=== PATIENT | female | born 1980 | race Caucasian/White ===

== ENCOUNTER 2019-02-15 11:30 | Emergency (ER) | payer BC, MEDICARE ==
[2019-02-15] MEDS ORDERED: HYDROmorphone 0.5 MG/0.5 ML SYRINGE IVP STA (12:00)
[2019-02-15] MEDS ORDERED: ONDANSETRON 4 MG/2 ML VIAL IVP STA (12:00)
[2019-02-15] MEDS ORDERED: SODIUM CHLORIDE 0.9% 1,000 ML IV STA (12:00)
--- NOTE | 2019-02-15 12:13 | ED ---
Abdominal Pain HPI - General Chief Complaint: Abdominal Pain Stated Complaint: left side/back pain, intestinal problems Time Seen by Provider: 02/15/19 11:44 Source: patient, RN notes reviewed Mode of arrival: ambulatory Limitations: no limitations - History of Present Illness Initial Comments: 38-year-old female presents emergency Department with multiple complaints. Patient primarily complains abdominal pain, diarrhea, nausea. Patient states that she's had years of issues but the symptoms are getting worse. Patient states she has abdominal pain primarily in the left upper abdominal region. Patient states that she occasionally has blood in her stool. Patient states that she's been told she had diverticulitis in the past though she states that she had lab work that tested positive for possible autoimmune disease including also colitis versus Crohn's. Patient states that she's never had a colonoscopy. Patient had increased urine production states that she is concerned that she may have hyperglycemia. Patient states she said history of gestational diabetes states that she checked her blood sugar while ago and states it was elevated fasting. Patient states that she is not at this time. She states approximately 6 months ago she had a stillbirth states that she had up with a uterine infection was placed on antibiotics along with surgery. Patient states that she currently is on her menstrual cycle. Denies any chance . - Related Data Home Medications Medication Instructions Recorded Confirmed Ferrous Sulfate [Feosol] 325 mg PO DAILY 02/15/19 02/15/19 clonazePAM [KlonoPIN] 1 - 2 mg PO BID PRN 02/15/19 02/15/19 Previous Rx's Medication Instructions Recorded Mesalamine 2.4 gm PO DAILY #30 tablet. 02/15/19 Allergies Allergy/AdvReac Type Severity Reaction Status Date / Time ciprofloxacin [From Cipro] Allergy Unknown Verified 02/15/19 12:15 Review of Systems ROS Statement: Those systems with pertinent positive or pertinent negative responses have been documented in the HPI. ROS Other: All systems not noted in ROS Statement are negative. Past Medical History Additional Past Medical History / Comment(s): ULCERATIVE COLITIS. GESTATIONAL DIABETES. History of Any Multi-Drug Resistant Organisms: None Reported Past Surgical History: Section, Cholecystectomy, Orthopedic Surgery, Tonsillectomy Past Psychological History: Anxiety Smoking Status: Never smoker Past Alcohol Use History: None Reported Past Drug Use History: None Reported General Exam Limitations: no limitations General appearance: alert, in no apparent distress Head exam: Present: atraumatic, normocephalic, normal inspection Eye exam: Present: normal appearance, PERRL, EOMI. Absent: scleral icterus, conjunctival injection, periorbital swelling Respiratory exam: Present: normal lung sounds bilaterally. Absent: respiratory distress, wheezes, rales, rhonchi, stridor Cardiovascular Exam: Present: regular rate, normal rhythm, normal heart sounds. Absent: systolic murmur, diastolic murmur, rubs, gallop, clicks GI/Abdominal exam: Present: soft, tenderness, normal bowel sounds. Absent: distended, guarding, rebound, rigid Back exam: Absent: CVA tenderness (R), CVA tenderness (L) Skin exam: Present: warm, dry, intact, normal color. Absent: rash Course Vital Signs 02/15/19 11:37 Temperature 98.2 F Pulse Rate 66 Respiratory 16 Rate Blood Pressure 132/84 O2 Sat by Pulse 100 Oximetry Medical Decision Making - Medical Decision Making 38-year-old female presents emergency from for abdominal pain concern for colitis. Patient had CT, lab work and labwork is unremarkable. CT shows evidence of enteritis versus been ongoing issue and felt to be possibly underlying Crohn's. Patient was offered course of IV steroids though she states that this will cause her fibromyalgia flare. Patient states that she does not feel comfortable this. Patient will be started on mesalamine, advised to take [id number] Imodium and follow-up with GI for colonoscopy. Patient also states that she was instructed to check her blood sugar 4 times a day because of ongoing diabetic issues that she has no official diagnosis of diabetes other than gestational diabetes. She is requesting, or and strips. Patient has appointment next 2 weeks with her PCP and will follow-up with GI in the meantime. - Lab Data Result diagrams: 02/15/19 12:00 02/15/19 12:00 Lab Results 02/15/19 02/15/19 02/15/19 Range/Units 12:00 12:00 12:00 WBC 5.4 (3.8-10.6) k/uL RBC 4.46 (3.80-5.40) m/uL Hgb 12.1 (11.4-16.0) gm/dL Hct 37.6 (34.0-46.0) % MCV 84.4 (80.0-100.0) fL MCH 27.1 (25.0-35.0) pg MCHC 32.1 (31.0-37.0) g/dL RDW 18.8 H (11.5-15.5) % Plt Count 311 (150-450) k/uL Neutrophils % 61 % Lymphocytes % 29 % Monocytes % 5 % Eosinophils % 2 % Basophils % 1 % Neutrophils # 3.3 (1.3-7.7) k/uL Lymphocytes # 1.6 (1.0-4.8) k/uL Monocytes # 0.3 (0-1.0) k/uL Eosinophils # 0.1 (0-0.7) k/uL Basophils # 0.1 (0-0.2) k/uL Anisocytosis Slight Microcytosis Slight Sodium 141 (137-145) mmol/L Potassium 5.0 (3.5-5.1) mmol/L Chloride 109 H (98-107) mmol/L Carbon Dioxide 24 (22-30) mmol/L Anion Gap 8 mmol/L BUN 13 (7-17) mg/dL Creatinine 0.67 (0.52-1.04) mg/dL Est GFR (CKD-EPI)AfAm >90 (>60 ml/min/1.73 sqM) Est GFR (CKD-EPI)NonAf >90 (>60 ml/min/1.73 sqM) Glucose 85 (74-99) mg/dL Plasma Lactic Acid Ti (0.7-2.0) mmol/L Calcium 9.7 (8.4-10.2) mg/dL Total Bilirubin 0.6 (0.2-1.3) mg/dL AST 35 (14-36) U/L ALT 54 H (9-52) U/L Alkaline Phosphatase 63 (38-126) U/L Total Protein 7.4 (6.3-8.2) g/dL Albumin 4.4 (3.5-5.0) g/dL Amylase 66 (30-110) U/L Lipase 85 (23-300) U/L Urine Color Urine Appearance (Clear) Urine pH (5.0-8.0) Ur Specific [place] (1.001-1.035) Urine Protein (Negative) Urine Glucose (UA) (Negative) Urine Ketones (Negative) Urine Blood (Negative) Urine Nitrite (Negative) Urine Bilirubin (Negative) Urine Urobilinogen (<2.0) mg/dL Ur Leukocyte Esterase (Negative) Urine RBC (0-5) /hpf Urine WBC (0-5) /hpf Ur Squamous Epith Cells (0-4) /hpf Urine Bacteria (None) /hpf Urine Mucus (None) /hpf Urine HCG, Qual Not Detected (Not Detectd) 02/15/19 02/15/19 Range/Units 12:00 12:00 WBC (3.8-10.6) k/uL RBC (3.80-5.40) m/uL Hgb (11.4-16.0) gm/dL Hct (34.0-46.0) % MCV (80.0-100.0) fL MCH (25.0-35.0) pg MCHC (31.0-37.0) g/dL RDW (11.5-15.5) % Plt Count (150-450) k/uL Neutrophils % % Lymphocytes % % Monocytes % % Eosinophils % % Basophils % % Neutrophils # (1.3-7.7) k/uL Lymphocytes # (1.0-4.8) k/uL Monocytes # (0-1.0) k/uL Eosinophils # (0-0.7) k/uL Basophils # (0-0.2) k/uL Anisocytosis Microcytosis Sodium (137-145) mmol/L Potassium (3.5-5.1) mmol/L Chloride (98-107) mmol/L Carbon Dioxide (22-30) mmol/L Anion Gap mmol/L BUN (7-17) mg/dL Creatinine (0.52-1.04) mg/dL Est GFR (CKD-EPI)AfAm (>60 ml/min/1.73 sqM) Est GFR (CKD-EPI)NonAf (>60 ml/min/1.73 sqM) Glucose (74-99) mg/dL Plasma Lactic Acid Ti 0.7 (0.7-2.0) mmol/L Calcium (8.4-10.2) mg/dL Total Bilirubin (0.2-1.3) mg/dL AST (14-36) U/L ALT (9-52) U/L Alkaline Phosphatase (38-126) U/L Total Protein (6.3-8.2) g/dL Albumin (3.5-5.0) g/dL Amylase (30-110) U/L Lipase (23-300) U/L Urine Color Yellow Urine Appearance Clear (Clear) Urine pH 5.5 (5.0-8.0) Ur Specific [place] 1.026 (1.001-1.035) Urine Protein Negative (Negative) Urine Glucose (UA) Negative (Negative) Urine Ketones Negative (Negative) Urine Blood Small H (Negative) Urine Nitrite Negative (Negative) Urine Bilirubin Negative (Negative) Urine Urobilinogen <2.0 (<2.0) mg/dL Ur Leukocyte Esterase Negative (Negative) Urine RBC 13 H (0-5) /hpf Urine WBC 1 (0-5) /hpf Ur Squamous Epith Cells 3 (0-4) /hpf Urine Bacteria Rare H (None) /hpf Urine Mucus Occasional H (None) /hpf Urine HCG, Qual (Not Detectd) Disposition Clinical Impression: Abdominal pain, Enteritis Disposition: HOME SELF-CARE Condition: Stable Instructions (If sedation given, give patient instructions): Abdominal Pain (ED) Additional Instructions: Please return to the Emergency Department if symptoms worsen or any other concerns. Prescriptions: Mesalamine 2.4 gm PO DAILY #30 tablet.dr Is patient prescribed a controlled substance at d/c from ED?: No Referrals: Vincent Pena MD [STAFF PHYSICIAN] - 1-2 days Time of Disposition: 13:34
[2019-02-15 12:39] LABS: Anisocytosis Slight; Appearance,Urine Clear (Clear); Bacteria,Urine Rare /hpf; Basophils # (A) 0.1 k/uL (0-0.2); Basophils % (A) 1 %; Bilirubin,Urine Negative (Negative); Blood,Urine Small (Negative); Color,Urine Yellow; Eosinophils # (A) 0.1 k/uL (0-0.7); Eosinophils % (A) 2 %; Glucose,Urine (UA) Negative (Negative); HCT 37.6 % (34.0-46.0); HGB 12.1 gm/dL (11.4-16.0); Ketones,Urine Negative (Negative); Leukocyte Esterase,Urine Negative (Negative); Lymphocytes # (A) 1.6 k/uL (1.0-4.8); Lymphocytes % (A) 29 %; MCH 27.1 pg (25.0-35.0); MCHC 32.1 g/dL (31.0-37.0); MCV 84.4 fL (80.0-100.0); Mean Platelet Volume 8.2; Microcytosis Slight; Monocytes # (A) 0.3 k/uL (0-1.0); Monocytes % (A) 5 %; Mucus,Urine Occasional /hpf; Neutrophils # (A) 3.3 k/uL (1.3-7.7); Neutrophils % (A) 61 %; Nitrite,Urine Negative (Negative); PH, Urine 5.5 (5.0-8.0); Platelet Count 311 k/uL (150-450); Protein,Urine Negative (Negative); RBC 4.46 m/uL (3.80-5.40); RBC,Urine 13 /hpf (0-5); RDW 18.8 % (11.5-15.5); Specific Gravity,Urine 1.026 (1.001-1.035); Squamous Epithelial Cell,Urine 3 /hpf (0-4); Urobilinogen,Urine <2.0 mg/dL (<2.0); WBC 5.4 k/uL (3.8-10.6)
[2019-02-15 12:49] LABS: ALT 54 U/L (9-52); AST 35 U/L (14-36); Albumin 4.4 g/dL (3.5-5.0); Alkaline Phosphatase 63 U/L (38-126); Amylase 66 U/L (30-110); Anion Gap 8 mmol/L; Blood Urea Nitrogen 13 mg/dL (7-17); Calcium 9.7 mg/dL (8.4-10.2); Carbon Dioxide 24 mmol/L (22-30); Chloride 109 mmol/L (98-107); Glucose 85 mg/dL (74-99); Lipase 85 U/L (23-300); Sodium 141 mmol/L (137-145); Total Bilirubin 0.6 mg/dL (0.2-1.3); Total Protein 7.4 g/dL (6.3-8.2)
--- NOTE | 2019-02-15 13:14 | CT ---
EXAMINATION TYPE: CT abdomen pelvis w con DATE OF EXAM: 02/15/2019 COMPARISON: None HISTORY: Flank pain with indigestion CT DLP: 1019 mGycm CONTRAST: CT scan of the abdomen and pelvis is performed without Oral Contrast and with IV Contrast, patient in jected with 100 mL of Isovue 300. FINDINGS: LUNG BASES-: No visible nodule. No infiltrate. LIVER/GB: The gallbladder surgically absent. There is evidence of hepatic steatosis. No space occu pying hepatic lesion. Biliary tree is of normal caliber. PANCREAS: No inflammation. No distinct mass. SPLEEN: No splenic enlargement. No lesion seen. ADRENALS: No nodule. No thickening. KIDNEYS/BLADDER: No hydronephrosis. No nephrolithiasis. No distinct renal mass. Urinary bladder g rossly unremarkable. BOWEL: Mild wall thickening small bowel with the fluid distention seen may reflect enteritis. Large b owel is of normal caliber. The appendix is not clearly visualized. No evidence for abscess or free ai r. GENITAL ORGANS: No gross abnormality. LYMPH NODES: No greater than 1cm abdominal or pelvic lymph nodes are appreciated. AORTA: No significant abnormality. OSSEOUS STRUCTURES: No significant abnormality is seen. OTHER: No significant additional abnormality is seen. IMPRESSION: 1. Correlate for small bowel enteritis. 2. Fatty liver.
[2019-02-15] MEDS ORDERED: ACET/COD 300 MG/30 MG STARTER PACK 6 TAB BTL PO STA (13:35)
[2019-02-15 13:55] VITALS: BP 115/79; PULSE 61; RESP 18; TEMP 98.4
== END 2019-02-15 13:54 | disposition home or self-care (01) ==
LOC: EC 11:30
DX: K52.9 Noninfective gastroenteritis and colitis, unspecified (principal); Z87.19 Personal history of other diseases of the digestive system; Z90.49 Acquired absence of other specified parts of digestive tract; Z98.890 Other specified postprocedural states; Z79.899 Other long term (current) drug therapy; Z88.1 Allergy status to other antibiotic agents
CPT/HCPCS: 36415; 80053; 82150; 83605; 83690; 85025; 81001; 81025; 74177; 99284; 96374; 96375; 96361; J2405; J1170; Q9967

== ENCOUNTER 2019-04-14 04:52 | Emergency (ER) | payer BC, MEDICARE ==
[2019-04-14] MEDS ORDERED: SODIUM CHLORIDE 0.9% 1,000 ML IV ONE (04:59)
--- NOTE | 2019-04-14 05:30 | ED ---
Abdominal Pain HPI - General Source: patient, family Mode of arrival: ambulatory Limitations: no limitations - History of Present Illness MD Complaint: abdominal pain Onset/Timin -: hour(s) Location: LLQ Radiation: none Migration to: no migration Severity: moderate Quality: sharp Consistency: constant Improves With: nothing Worsens With: nothing Associated Symptoms: denies other symptoms - Related Data LMP (females 10-50): 1 month Patient : Yes Number of weeks : 5 <Alo Figueredo - Last Filed: 04/14/19 05:30> <Vincent Zuñiag - Last Filed: 04/14/19 07:52> - General Chief Complaint: Abdominal Pain Stated Complaint: 6 Weeks Preg, Abd Pain Time Seen by Provider: 04/14/19 05:16 - History of Present Illness Initial Comments: Patient is a 38-year-old woman (G7, P4Ab2) who presents stating that she is concerned she has ectopic . She had a home test +2 weeks ago The patient states she developed sharp left lower quadrant pain proximally 2 hours ago. She is concerned because she has had 2 previous pregnancies and in miscarriage. Patient is not having any vaginal discharge or vaginal bleeding. No palpitations, lightheadedness, diaphoresis, dyspnea, or syncope. There is no nausea or vomiting. No change in bowel movements. No change in urination. (Alo Figueredo) - Related Data Home Medications Medication Instructions Recorded Confirmed [id number] Acid 1 cap PO DAILY 04/14/19 04/14/19 [-U Capsule (formulary)] Allergies Allergy/AdvReac Type Severity Reaction Status Date / Time ciprofloxacin [From Cipro] Allergy Unknown Verified 04/14/19 07:34 Review of Systems ROS Other: All systems not noted in ROS Statement are negative. Constitutional: Denies: fever, chills Respiratory: Denies: cough, dyspnea Cardiovascular: Denies: chest pain, palpitations, edema, syncope Gastrointestinal: Reports: as per HPI, abdominal pain. Denies: nausea, vomiting, diarrhea, constipation Genitourinary: Denies: dysuria, frequency, hematuria, discharge Musculoskeletal: Denies: back pain Skin: Denies: rash Neurological: Denies: headache, weakness, numbness <Alo Figueredo - Last Filed: 04/14/19 05:30> ROS Other: All systems not noted in ROS Statement are negative. <Vincent Zuñiga - Last Filed: 04/14/19 07:52> ROS Statement: Those systems with pertinent positive or pertinent negative responses have been documented in the HPI. Past Medical History Additional Past Medical History / Comment(s): ULCERATIVE COLITIS. GESTATIONAL DIABETES. History of Any Multi-Drug Resistant Organisms: None Reported Past Surgical History: Section, Cholecystectomy, Orthopedic Surgery, Tonsillectomy Past Psychological History: Anxiety Smoking Status: Never smoker Past Alcohol Use History: None Reported Past Drug Use History: None Reported <Alo Figueredo - Last Filed: 04/14/19 05:30> General Exam Limitations: no limitations General appearance: alert, in no apparent distress Head exam: Present: atraumatic, normocephalic Eye exam: Present: normal appearance. Absent: scleral icterus, conjunctival injection Respiratory exam: Present: normal lung sounds bilaterally. Absent: respiratory distress, wheezes, rales, rhonchi, stridor Cardiovascular Exam: Present: regular rate, normal rhythm, normal heart sounds. Absent: systolic murmur, diastolic murmur, rubs, gallop GI/Abdominal exam: Present: soft. Absent: distended, tenderness, guarding, rebound, rigid, mass Extremities exam: Present: normal inspection, normal capillary refill. Absent: pedal edema, calf tenderness Back exam: Present: normal inspection. Absent: CVA tenderness (R), CVA tenderness (L) Neurological exam: Present: alert Psychiatric exam: Present: depressed (Tearful), anxious. Absent: homicidal ideation, suicidal ideation Skin exam: Present: warm, dry, intact, normal color. Absent: rash <Alo Figueredo - Last Filed: 04/14/19 05:30> Course Vital Signs 04/14/19 04/14/19 04:55 07:07 Temperature 98.6 F 98.1 F Pulse Rate 83 78 Respiratory 18 16 Rate Blood Pressure 130/91 115/62 O2 Sat by Pulse 98 99 Oximetry Medical Decision Making - Lab Data Result diagrams: 04/14/19 05:52 04/14/19 05:52 <Vincent Zuñiga - Last Filed: 04/14/19 07:52> - Medical Decision Making Ultrasound showed a possible early yolk sac no indication of any ectopic. It is recommended the patient with serial hCGs. (Vincent Zuñiga) - Lab Data Lab Results 04/14/19 04/14/19 04/14/19 Range/Units 05:20 05:52 05:52 WBC 6.1 (3.8-10.6) k/uL RBC 4.46 (3.80-5.40) m/uL Hgb 12.6 (11.4-16.0) gm/dL Hct 38.7 (34.0-46.0) % MCV 86.7 (80.0-100.0) fL MCH 28.3 (25.0-35.0) pg MCHC 32.7 (31.0-37.0) g/dL RDW 17.7 H (11.5-15.5) % Plt Count 238 (150-450) k/uL Neutrophils % 62 % Lymphocytes % 28 % Monocytes % 5 % Eosinophils % 2 % Basophils % 0 % Neutrophils # 3.7 (1.3-7.7) k/uL Lymphocytes # 1.7 (1.0-4.8) k/uL Monocytes # 0.3 (0-1.0) k/uL Eosinophils # 0.1 (0-0.7) k/uL Basophils # 0.0 (0-0.2) k/uL Anisocytosis Slight Sodium 140 (137-145) mmol/L Potassium 4.4 (3.5-5.1) mmol/L Chloride 110 H (98-107) mmol/L Carbon Dioxide 19 L (22-30) mmol/L Anion Gap 11 mmol/L BUN 11 (7-17) mg/dL Creatinine 0.56 (0.52-1.04) mg/dL Est GFR (CKD-EPI)AfAm >90 (>60 ml/min/1.73 sqM) Est GFR (CKD-EPI)NonAf >90 (>60 ml/min/1.73 sqM) Glucose 95 (74-99) mg/dL Calcium 9.2 (8.4-10.2) mg/dL Total Bilirubin 0.5 (0.2-1.3) mg/dL AST 30 (14-36) U/L ALT 25 (9-52) U/L Alkaline Phosphatase 56 (38-126) U/L Total Protein 7.1 (6.3-8.2) g/dL Albumin 4.1 (3.5-5.0) g/dL Amylase 78 (30-110) U/L Lipase 158 (23-300) U/L HCG, Quant 4704.2 mIU/mL Urine Color Yellow Urine Appearance Cloudy H (Clear) Urine pH 6.0 (5.0-8.0) Ur Specific [place] 1.025 (1.001-1.035) Urine Protein Trace H (Negative) Urine Glucose (UA) Negative (Negative) Urine Ketones 1+ H (Negative) Urine Blood Small H (Negative) Urine Nitrite Negative (Negative) Urine Bilirubin Negative (Negative) Urine Urobilinogen 3.0 (<2.0) mg/dL Ur Leukocyte Esterase Large H (Negative) Urine RBC 22 H (0-5) /hpf Urine WBC 48 H (0-5) /hpf Ur Squamous Epith Cells 28 H (0-4) /hpf Urine Mucus Few H (None) /hpf Disposition <Alo Figueredo - Last Filed: 04/14/19 05:30> Is patient prescribed a controlled substance at d/c from ED?: No Time of Disposition: 07:51 <Vincent Zuñiga - Last Filed: 04/14/19 07:52> Clinical Impression: Early stage of Disposition: HOME SELF-CARE Instructions (If sedation given, give patient instructions): Ectopic (DC) Additional Instructions: Patient should follow-up with her [facility] and also get serial hCGs she will be given a prescription for another hCG. Referrals: Prashanth Douglas MD [STAFF PHYSICIAN] - 1-2 days
[2019-04-14 05:41] LABS: Appearance,Urine Cloudy (Clear); Bilirubin,Urine Negative (Negative); Blood,Urine Small (Negative); Color,Urine Yellow; Glucose,Urine (UA) Negative (Negative); Ketones,Urine 1+ (Negative); Leukocyte Esterase,Urine Large (Negative); Mucus,Urine Few /hpf; Nitrite,Urine Negative (Negative); Protein,Urine Trace (Negative); RBC,Urine 22 /hpf (0-5); Specific Gravity,Urine 1.025 (1.001-1.035); Squamous Epithelial Cell,Urine 28 /hpf (0-4); WBC,Urine 48 /hpf (0-5)
[2019-04-14 06:02] LABS: Anisocytosis Slight; Basophils % (A) 0 %; Eosinophils # (A) 0.1 k/uL (0-0.7); Eosinophils % (A) 2 %; HCT 38.7 % (34.0-46.0); HGB 12.6 gm/dL (11.4-16.0); Lymphocytes # (A) 1.7 k/uL (1.0-4.8); Lymphocytes % (A) 28 %; MCH 28.3 pg (25.0-35.0); MCHC 32.7 g/dL (31.0-37.0); MCV 86.7 fL (80.0-100.0); Mean Platelet Volume 8.9; Monocytes # (A) 0.3 k/uL (0-1.0); Monocytes % (A) 5 %; Neutrophils # (A) 3.7 k/uL (1.3-7.7); Neutrophils % (A) 62 %; Platelet Count 238 k/uL (150-450); RBC 4.46 m/uL (3.80-5.40); RDW 17.7 % (11.5-15.5); WBC 6.1 k/uL (3.8-10.6)
[2019-04-14 06:14] LABS: ALT 25 U/L (9-52); AST 30 U/L (14-36); African American GFR (CKD) >90 (>60 ml/min/1.73 sqM); Albumin 4.1 g/dL (3.5-5.0); Alkaline Phosphatase 56 U/L (38-126); Amylase 78 U/L (30-110); Anion Gap 11 mmol/L; Blood Urea Nitrogen 11 mg/dL (7-17); Calcium 9.2 mg/dL (8.4-10.2); Carbon Dioxide 19 mmol/L (22-30); Chloride 110 mmol/L (98-107); Glucose 95 mg/dL (74-99); Lipase 158 U/L (23-300); Sodium 140 mmol/L (137-145); Total Bilirubin 0.5 mg/dL (0.2-1.3); Total Protein 7.1 g/dL (6.3-8.2)
[2019-04-14 06:18] LABS: Potassium 4.4 mmol/L (3.5-5.1)
[2019-04-14 06:29] LABS: HCG,Quantitative Serum 4704.2 mIU/mL
[2019-04-14 07:09] VITALS: RESP 16
--- NOTE | 2019-04-14 07:21 | US ---
EXAMINATION TYPE: Ultrasound OB <= 14 week fetus DATE OF EXAM: 04/14/2019 7:08 AM COMPARISON: NONE CLINICAL HISTORY: 38-year-old female Pain, R/O ectopic. Pt states LLQ pain x few hours, denies bleedi ng EXAM PERFORMED: Transabdominal (TA) FINDINGS: EXAM MEASUREMENTS: GESTATIONAL AGE / DATING Physician Established: Not yet established Dates by LMP: (5 weeks/4 days) EDC: 12/11/2019 Dates by First Scan: No prior Dates by Current Scan for: Unable to date by today's study; too early MATERNAL ANATOMY Uterus: 11.0 x 5.4 x 7.4 cm Right Ovary: 2.8 x 2.5 x 2.9 cm Left Ovary: 2.4 x 1.8 x 2.6 cm Post CDS / Adnexa: wnl Presence of free fluid: No Presence of corpus luteal cyst: Right Ovary= 2.0 x 1.6 x 1.8 cm Presence of subchorionic bleed: No GESTATION / SURVEY MSD: Cystic locule measuring 0.9 cm along the right uterine fundus. Too early/small to calculate date s Yolk Sac (normal less than 6mm): Suspected early yolk sac measuring 2mm Date of LMP: 03/06/2019 Beta HcG (if available): 4704.5 on today's date 04/14/2019 Gate Mortiser Operator notes:Probable early gestational sac with yolk sac within uterus, too early/small to ca lculate dates IMPRESSION: Cystic locule along the right uterine fundus measuring 9 mm. There is a faint, 2 mm density within gotti spected to represent an early yolk sac. Early intrauterine is suspected. Failed a nd nonvisualized ectopic not excluded at this time given the small measurements. Recommend serial beta hCG follow-up. Ultrasound follow-up to ensure the appearance of a normal pole with cardiac activity.
[2019-04-14 08:07] VITALS: BP 110/70; PULSE 81; TEMP 98.2
== END 2019-04-14 08:05 | disposition home or self-care (01) ==
LOC: EC 04:52
DX: O99.89 Other specified diseases and conditions complicating pregnancy, childbirth and the puerperium (principal); R10.32 Left lower quadrant pain; O99.341 Other mental disorders complicating pregnancy, first trimester; F32.9 Major depressive disorder, single episode, unspecified; R45.83 Excessive crying of child, adolescent or adult; Z88.1 Allergy status to other antibiotic agents; Z86.32 Personal history of gestational diabetes; Z87.59 Personal history of other complications of pregnancy, childbirth and the puerperium; Z87.19 Personal history of other diseases of the digestive system; Z90.49 Acquired absence of other specified parts of digestive tract; Z98.890 Other specified postprocedural states; Z3A.01 Less than 8 weeks gestation of pregnancy
CPT/HCPCS: 36415; 76801; 80053; 81001; 82150; 83690; 84702; 85025; 96360; 99284

== ENCOUNTER 2019-08-01 00:43 | Emergency (ER) | payer BC, MEDICARE ==
[2019-08-01 01:39] LABS: ALT 31 U/L (9-52); AST 24 U/L (14-36); African American GFR (CKD) >90 (>60 ml/min/1.73 sqM); Albumin 4.2 g/dL (3.5-5.0); Alkaline Phosphatase 65 U/L (38-126); Amylase 99 U/L (30-110); Anion Gap 8 mmol/L; Blood Urea Nitrogen 14 mg/dL (7-17); Carbon Dioxide 25 mmol/L (22-30); Chloride 109 mmol/L (98-107); Glucose 115 mg/dL (74-99); Potassium 4.5 mmol/L (3.5-5.1); Sodium 142 mmol/L (137-145); Total Bilirubin 0.4 mg/dL (0.2-1.3); Total Protein 7.3 g/dL (6.3-8.2)
[2019-08-01 02:45] LABS: Basophils # (A) 0.1 k/uL (0-0.2); Basophils % (A) 2 %; Eosinophils # (A) 0.1 k/uL (0-0.7); Eosinophils % (A) 2 %; HCT 42.3 % (34.0-46.0); HGB 14.3 gm/dL (11.4-16.0); Lymphocytes # (A) 1.8 k/uL (1.0-4.8); Lymphocytes % (A) 23 %; MCH 32.1 pg (25.0-35.0); MCHC 33.8 g/dL (31.0-37.0); MCV 95.1 fL (80.0-100.0); Mean Platelet Volume 8.8; Monocytes # (A) 0.4 k/uL (0-1.0); Monocytes % (A) 5 %; Neutrophils # (A) 5.2 k/uL (1.3-7.7); Neutrophils % (A) 68 %; Platelet Count 192 k/uL (150-450); RBC 4.44 m/uL (3.80-5.40); RDW 12.7 % (11.5-15.5); WBC 7.8 k/uL (3.8-10.6)
--- NOTE | 2019-08-01 02:49 | XR ---
EXAMINATION TYPE: XR KUB DATE OF EXAM: 08/01/2019 COMPARISON: NONE HISTORY: Pain TECHNIQUE: Single view FINDINGS: 2 views upright were obtained. There is no sign of intestinal obstruction or pneumoperitone um. Fecal pattern is normal. Lung bases are clear. There are clips from cholecystectomy. There are no pathologic calcifications over the kidneys. IMPRESSION: Nonacute abdomen.
[2019-08-01 04:47] LABS: Appearance,Urine Clear (Clear); Bacteria,Urine Rare /hpf; Bilirubin,Urine Negative (Negative); Blood,Urine Small (Negative); Calcium Oxalate Crystals,Urine Few /hpf; Color,Urine Yellow; Glucose,Urine (UA) Negative (Negative); Hyaline Casts,Urine 1 /lpf (0-2); Ketones,Urine Negative (Negative); Leukocyte Esterase,Urine Trace (Negative); Mucus,Urine Moderate /hpf; Nitrite,Urine Negative (Negative); PH, Urine 5.5 (5.0-8.0); Protein,Urine Negative (Negative); RBC,Urine 26 /hpf (0-5); Specific Gravity,Urine 1.022 (1.001-1.035); Squamous Epithelial Cell,Urine 1 /hpf (0-4); WBC,Urine 5 /hpf (0-5)
[2019-08-01] MEDS ORDERED: KETOROLAC 30 MG/ML 1 ML VIAL IVP ONE (05:08)
[2019-08-01] MEDS ORDERED: KETOROLAC 30 MG/ML 1 ML VIAL IM STA (05:22)
[2019-08-01] MEDS ORDERED: ACET/COD 300 MG/30 MG STARTER PACK 6 TAB BTL PO STA (06:18)
[2019-08-01] MEDS ORDERED: ONDANSETRON 4 MG ODT STARTER PACK 2 TAB BTL PO STA (06:18)
--- NOTE | 2019-08-01 06:18 | ED ---
Abdominal Pain HPI - General Chief Complaint: Abdominal Pain Stated Complaint: Abd/ Back Pain Time Seen by Provider: 08/01/19 03:30 Source: patient Mode of arrival: ambulatory Limitations: no limitations - History of Present Illness Initial Comments: Polly is a 39-year-old female presents the ER today for evaluation of left- sided flank pain radiating down left side of her abdomen. Patient's had pain for a few days duration. Patient reports she has a history of colitis in the past but also has a history of kidney stones. Patient does note that she's noted that her urine is somewhat darker and she did notice some red streaking of her urine when wiping but no dysuria or urinary frequency. Patient denies any constipation or diarrhea. She follows with gastroenterology Dr. Christensen out of [facility]. Patient states that she had some remaining narcotic pain medication from previous fibromyalgia flare and was able take that which helped the pain somewhat Labs and imaging ordered labs relatively unremarkable home and no leukocytosis no significant electrolyte abnormalities Urinalysis with hematuria and oxalate crystals The patient's history I suspect the patient suffering from a kidney stone. Given that she has no GI symptoms no leukocytosis I do not suspect she is suffering from colitis. These results were discussed with patient is comfortable with the plan for discharge home and outpatient management of kidney stone. All questions pertaining care were answered return parameters discussed patient discharged home in stable condition. - Related Data Home Medications Medication Instructions Recorded Confirmed Hwi-Eaqu-Ebpfd Acid 1 cap PO DAILY 04/14/19 04/14/19 [-U Capsule (formulary)] Previous Rx's Medication Instructions Recorded Tamsulosin [Flomax] 0.4 mg PO DAILY #7 cap 08/01/19 Allergies Allergy/AdvReac Type Severity Reaction Status Date / Time ciprofloxacin [From Cipro] Allergy Unknown Verified 08/01/19 00:49 Review of Systems ROS Statement: Those systems with pertinent positive or pertinent negative responses have been documented in the HPI. ROS Other: All systems not noted in ROS Statement are negative. Past Medical History Additional Past Medical History / Comment(s): ULCERATIVE COLITIS. GESTATIONAL DIABETES. History of Any Multi-Drug Resistant Organisms: None Reported Past Surgical History: Section, Cholecystectomy, Orthopedic Surgery, Tonsillectomy Past Psychological History: Anxiety Smoking Status: Never smoker Past Alcohol Use History: None Reported Past Drug Use History: None Reported General Exam - General Exam Comments Initial Comments: Physical Exam GENERAL: Patient is well-developed and well-nourished. Patient is nontoxic and well- hydrated and is in no distress. HENT: Normocephalic, Atraumatic. EYES: PERRL, EOMI PULMONARY: Unlabored respirations. No audible rales rhonchi or wheezing was noted. CARDIOVASCULAR: There is a regular rate and rhythm without any murmurs gallops or rubs. ABDOMEN: Soft and nontender with normal bowel sounds. Non-peritoneal No tenderness to palpation SKIN: Skin is clear with no lesions or rashes and otherwise unremarkable. : Deferred NEUROLOGIC: Patient is alert and oriented x3. Moving all extremities spontaneously MUSCULOSKELETAL: Normal extremities with adequate strength and full range of motion. No lower extremity swelling or edema. No calf tenderness. PSYCHIATRIC: Normal psychiatric evaluation. Limitations: no limitations Course Vital Signs 08/01/19 08/01/19 08/01/19 00:47 04:23 06:32 Temperature 98.2 F 98.1 F Pulse Rate 96 65 60 Respiratory 20 19 18 Rate Blood Pressure 147/91 105/67 98/55 O2 Sat by Pulse 95 98 97 Oximetry Medical Decision Making - Lab Data Result diagrams: 08/01/19 01:18 08/01/19 01:18 Lab Results 08/01/19 08/01/19 08/01/19 Range/Units 01:18 01:18 04:21 WBC 7.8 (3.8-10.6) k/uL RBC 4.44 (3.80-5.40) m/uL Hgb 14.3 (11.4-16.0) gm/dL Hct 42.3 (34.0-46.0) % MCV 95.1 (80.0-100.0) fL MCH 32.1 (25.0-35.0) pg MCHC 33.8 (31.0-37.0) g/dL RDW 12.7 (11.5-15.5) % Plt Count 192 (150-450) k/uL Neutrophils % 68 % Lymphocytes % 23 % Monocytes % 5 % Eosinophils % 2 % Basophils % 2 % Neutrophils # 5.2 (1.3-7.7) k/uL Lymphocytes # 1.8 (1.0-4.8) k/uL Monocytes # 0.4 (0-1.0) k/uL Eosinophils # 0.1 (0-0.7) k/uL Basophils # 0.1 (0-0.2) k/uL Sodium 142 (137-145) mmol/L Potassium 4.5 (3.5-5.1) mmol/L Chloride 109 H (98-107) mmol/L Carbon Dioxide 25 (22-30) mmol/L Anion Gap 8 mmol/L BUN 14 (7-17) mg/dL Creatinine 0.79 (0.52-1.04) mg/dL Est GFR (CKD-EPI)AfAm >90 (>60 ml/min/1.73 sqM) Est GFR (CKD-EPI)NonAf >90 (>60 ml/min/1.73 sqM) Glucose 115 H (74-99) mg/dL Calcium 10.0 (8.4-10.2) mg/dL Total Bilirubin 0.4 (0.2-1.3) mg/dL AST 24 (14-36) U/L ALT 31 (9-52) U/L Alkaline Phosphatase 65 (38-126) U/L Total Protein 7.3 (6.3-8.2) g/dL Albumin 4.2 (3.5-5.0) g/dL Amylase 99 (30-110) U/L Lipase 170 (23-300) U/L Urine Color Yellow Urine Appearance Clear (Clear) Urine pH 5.5 (5.0-8.0) Ur Specific [place] 1.022 (1.001-1.035) Urine Protein Negative (Negative) Urine Glucose (UA) Negative (Negative) Urine Ketones Negative (Negative) Urine Blood Small H (Negative) Urine Nitrite Negative (Negative) Urine Bilirubin Negative (Negative) Urine Urobilinogen 2.0 (<2.0) mg/dL Ur Leukocyte Esterase Trace H (Negative) Urine RBC 26 H (0-5) /hpf Urine WBC 5 (0-5) /hpf Ur Squamous Epith Cells 1 (0-4) /hpf Calcium Oxalate Crystal Few H (None) /hpf Urine Bacteria Rare H (None) /hpf Hyaline Casts 1 (0-2) /lpf Urine Mucus Moderate H (None) /hpf Urine HCG, Qual (Not Detectd) 08/01/19 Range/Units 04:21 WBC (3.8-10.6) k/uL RBC (3.80-5.40) m/uL Hgb (11.4-16.0) gm/dL Hct (34.0-46.0) % MCV (80.0-100.0) fL MCH (25.0-35.0) pg MCHC (31.0-37.0) g/dL RDW (11.5-15.5) % Plt Count (150-450) k/uL Neutrophils % % Lymphocytes % % Monocytes % % Eosinophils % % Basophils % % Neutrophils # (1.3-7.7) k/uL Lymphocytes # (1.0-4.8) k/uL Monocytes # (0-1.0) k/uL Eosinophils # (0-0.7) k/uL Basophils # (0-0.2) k/uL Sodium (137-145) mmol/L Potassium (3.5-5.1) mmol/L Chloride (98-107) mmol/L Carbon Dioxide (22-30) mmol/L Anion Gap mmol/L BUN (7-17) mg/dL Creatinine (0.52-1.04) mg/dL Est GFR (CKD-EPI)AfAm (>60 ml/min/1.73 sqM) Est GFR (CKD-EPI)NonAf (>60 ml/min/1.73 sqM) Glucose (74-99) mg/dL Calcium (8.4-10.2) mg/dL Total Bilirubin (0.2-1.3) mg/dL AST (14-36) U/L ALT (9-52) U/L Alkaline Phosphatase (38-126) U/L Total Protein (6.3-8.2) g/dL Albumin (3.5-5.0) g/dL Amylase (30-110) U/L Lipase (23-300) U/L Urine Color Urine Appearance (Clear) Urine pH (5.0-8.0) Ur Specific [place] (1.001-1.035) Urine Protein (Negative) Urine Glucose (UA) (Negative) Urine Ketones (Negative) Urine Blood (Negative) Urine Nitrite (Negative) Urine Bilirubin (Negative) Urine Urobilinogen (<2.0) mg/dL Ur Leukocyte Esterase (Negative) Urine RBC (0-5) /hpf Urine WBC (0-5) /hpf Ur Squamous Epith Cells (0-4) /hpf Calcium Oxalate Crystal (None) /hpf Urine Bacteria (None) /hpf Hyaline Casts (0-2) /lpf Urine Mucus (None) /hpf Urine HCG, Qual Not Detected (Not Detectd) Disposition Clinical Impression: Flank pain Disposition: HOME SELF-CARE Condition: Stable Instructions (If sedation given, give patient instructions): Kidney Stones (ED) Additional Instructions: Follow up with your primary doctor within 2-3 days. Follow up with a Urologist this week (we will give you a list of urologists, but make sure they accept your insurance). ?Please call as soon as possible for an appointment. 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 Use Motrin (also called Ibuprofen or Advil) 400-800 mg every 6 hours as needed for pain. Take this with food, if you have any stomach discomfort while taking Motrin, you can use TUMS to help. Drink plenty of fluids, avoid caffeine & alcohol. Please continue taking your home medications as directed. Do not use alcohol when taking any medication (especially antibiotics, tylenol or other pain medication) unless you check with the doctor or pharmacist. Any worsening pain, fever, chills, difficulty urinating, or any other concerns, please see your doctor immediately or return to Emergency Department right away. Prescriptions: Tamsulosin [Flomax] 0.4 mg PO DAILY #7 cap Is patient prescribed a controlled substance at d/c from ED?: No Referrals: None,Stated [Primary Care Provider] - 1-2 days
[2019-08-01 06:33] VITALS: BP 98/55; PULSE 60; RESP 18; TEMP 98.1
== END 2019-08-01 06:32 | disposition home or self-care (01) ==
LOC: EC 00:43
DX: R10.9 Unspecified abdominal pain (principal); M79.7 Fibromyalgia; R31.9 Hematuria, unspecified; Z88.1 Allergy status to other antibiotic agents; Z87.442 Personal history of urinary calculi
CPT/HCPCS: 36415; 80053; 82150; 83690; 85025; 81001; 81025; 74018; 96372; 99284; J1885; S0119

== ENCOUNTER 2020-05-02 16:02 | Emergency (ER) | payer BC, MEDICARE ==
[2020-05-02] MEDS ORDERED: SODIUM CHLORIDE 0.9% 1,000 ML IV ONE (16:41)
[2020-05-02 17:05] LABS: Basophils % (A) 0 %; Eosinophils # (A) 0.1 k/uL (0-0.7); Eosinophils % (A) 2 %; HGB 13.8 gm/dL (11.4-16.0); Lymphocytes # (A) 1.7 k/uL (1.0-4.8); Lymphocytes % (A) 25 %; MCH 31.8 pg (25.0-35.0); MCHC 34.4 g/dL (31.0-37.0); MCV 92.5 fL (80.0-100.0); Mean Platelet Volume 9.7; Monocytes # (A) 0.4 k/uL (0-1.0); Monocytes % (A) 7 %; Neutrophils # (A) 4.2 k/uL (1.3-7.7); Neutrophils % (A) 64 %; Platelet Count 233 k/uL (150-450); RBC 4.33 m/uL (3.80-5.40); RDW 15.1 % (11.5-15.5); WBC 6.6 k/uL (3.8-10.6)
[2020-05-02 17:15] LABS: Appearance,Urine Clear (Clear); Bacteria,Urine Occasional /hpf; Bilirubin,Urine Negative (Negative); Blood,Urine Negative (Negative); Color,Urine Yellow; Glucose,Urine (UA) Negative (Negative); Hyaline Casts,Urine 1 /lpf (0-2); Ketones,Urine 1+ (Negative); Leukocyte Esterase,Urine Trace (Negative); Mucus,Urine Occasional /hpf; Nitrite,Urine Negative (Negative); Protein,Urine Negative (Negative); RBC,Urine 2 /hpf (0-5); Specific Gravity,Urine 1.023 (1.001-1.035); Squamous Epithelial Cell,Urine 1 /hpf (0-4); WBC,Urine 2 /hpf (0-5)
[2020-05-02 17:17] LABS: ALT 22 U/L (4-34); AST 30 U/L (14-36); African American GFR (CKD) >90 (>60 ml/min/1.73 sqM); Albumin 4.2 g/dL (3.5-5.0); Alkaline Phosphatase 60 U/L (38-126); Anion Gap 11 mmol/L; Blood Urea Nitrogen 9 mg/dL (7-17); Calcium 10.1 mg/dL (8.4-10.2); Carbon Dioxide 20 mmol/L (22-30); Chloride 107 mmol/L (98-107); Glucose 120 mg/dL (74-99); Non-African American GFR(CKD) >90 (>60 ml/min/1.73 sqM); Potassium 4.1 mmol/L (3.5-5.1); Sodium 138 mmol/L (137-145); Total Bilirubin 0.5 mg/dL (0.2-1.3); Total Protein 7.3 g/dL (6.3-8.2)
--- NOTE | 2020-05-02 17:40 | US ---
EXAMINATION TYPE: Transabdominal DATE OF EXAM: 05/02/2020 5:22 PM COMPARISON: NONE CLINICAL HISTORY: pain. Cramping and spotting EXAM PERFORMED: Transabdominal (TA) departmental protocol EXAM MEASUREMENTS: GESTATIONAL AGE / DATING Physician Established: Not yet established Dates by LMP: (8 weeks/6 days) EDC: 12/06/2020 Dates by First Scan: No previous; this is first scan . Dates by Current Scan for: (8 weeks/6 days) EDC: 12/06/2020 MATERNAL ANATOMY Uterus: 10.3 x 7.9 x 7.9 cm Right Ovary: Obscured by bowel gas Left Ovary: Obscured by bowel gas Post CDS / Adnexa: wnl Presence of free fluid: no Presence of corpus luteal cyst: no Presence of subchorionic bleed: no GESTATION / SURVEY CRL: 2.21 cm (8 weeks/6 days) Yolk Sac (normal less than 6 mm): 4 mm Heart Rate: 165 bpm Rhythm: Normal IUP: Viable IUP Beta HcG (if available): Not available at this time IMPRESSION: Intrauterine corresponding with 8 weeks 6 days gestation with estimated date of confinement 12/06/2020.
[2020-05-02 18:09] LABS: HCG,Quantitative Serum 70648.5 mIU/mL
--- NOTE | 2020-05-02 19:19 | ED ---
General Adult HPI - General Chief complaint: Vaginal Bleeding Stated complaint: Cramping/Spotting-8 wks Time Seen by Provider: 05/02/20 16:14 Source: patient, RN notes reviewed Mode of arrival: ambulatory Limitations: no limitations - History of Present Illness Initial comments: 39-year-old female with 3 miscarriages currently 9 weeks presents for cramping and spotting. Patient states she has had very light spotting for the past couple days. States that she is currently and is concerned as she is a high risk . Patient's did have an ultrasound confirming an intrauterine or this . Patient does have [employer].Patient has no other complaints at this time including shortness of breath, chest pain, nausea or vomiting, headache, or visual changes. - Related Data Home Medications Medication Instructions Recorded Confirmed Ezl-Qmke-Zntwm Acid 1 cap PO DAILY 04/14/19 04/14/19 [-U Capsule (formulary)] Previous Rx's Medication Instructions Recorded Tamsulosin [Flomax] 0.4 mg PO DAILY #7 cap 08/01/19 Allergies Allergy/AdvReac Type Severity Reaction Status Date / Time ciprofloxacin [From Cipro] Allergy Unknown Verified 05/02/20 16:13 Review of Systems ROS Statement: Those systems with pertinent positive or pertinent negative responses have been documented in the HPI. ROS Other: All systems not noted in ROS Statement are negative. Past Medical History Past Medical History: Fibromyalgia Additional Past Medical History / Comment(s): chronic fatigue syndrome, kidney stones, diverticulosis, gastroparesis, gestational diabetes, being worked up for clotting disorder History of Any Multi-Drug Resistant Organisms: None Reported Past Surgical History: Section, Cholecystectomy, Orthopedic Surgery, Tonsillectomy Additional Past Surgical History / Comment(s): kidney stone removal Past Psychological History: Anxiety Smoking Status: Never smoker Past Alcohol Use History: None Reported Past Drug Use History: None Reported General Exam Limitations: no limitations General appearance: alert, in no apparent distress Head exam: Present: atraumatic, normocephalic, normal inspection Eye exam: Present: normal appearance, PERRL, EOMI. Absent: scleral icterus, conjunctival injection, periorbital swelling ENT exam: Present: normal exam, mucous membranes moist Neck exam: Present: normal inspection, full ROM. Absent: tenderness, meningismus, lymphadenopathy Respiratory exam: Present: normal lung sounds bilaterally. Absent: respiratory distress, wheezes, rales, rhonchi, stridor Cardiovascular Exam: Present: regular rate, normal rhythm, normal heart sounds. Absent: systolic murmur, diastolic murmur, rubs, gallop, clicks GI/Abdominal exam: Present: soft, normal bowel sounds. Absent: distended, tend erness, guarding, rebound, rigid External exam: Absent: other (Refused) Course Vital Signs 05/02/20 05/02/20 16:09 18:05 Temperature 98.2 F 98.5 F Pulse Rate 77 60 Respiratory 18 18 Rate Blood Pressure 128/85 115/81 O2 Sat by Pulse 98 98 Oximetry Medical Decision Making - Medical Decision Making Vitals are stable. Physical exam is unremarkable. Patient refused pelvic exam. CBC CMP is unremarkable. Urinalysis shows occasional bacteria however no symptoms. Urine will be cultured. Blood type is O+. Ultrasound shows an intrauterine corresponding with 8 weeks 6 days gestation. Heart rate is 165. At this time patient diagnosed with threatened miscarriage. Patient will follow-up with her [employer]. She will return here for any worsening symptoms. - Lab Data Result diagrams: 05/02/20 16:43 05/02/20 16:43 Lab Results 05/02/20 05/02/20 05/02/20 Range/Units 16:35 16:43 16:43 WBC 6.6 (3.8-10.6) k/uL RBC 4.33 (3.80-5.40) m/uL Hgb 13.8 (11.4-16.0) gm/dL Hct 40.0 (34.0-46.0) % MCV 92.5 (80.0-100.0) fL MCH 31.8 (25.0-35.0) pg MCHC 34.4 (31.0-37.0) g/dL RDW 15.1 (11.5-15.5) % Plt Count 233 (150-450) k/uL Neutrophils % 64 % Lymphocytes % 25 % Monocytes % 7 % Eosinophils % 2 % Basophils % 0 % Neutrophils # 4.2 (1.3-7.7) k/uL Lymphocytes # 1.7 (1.0-4.8) k/uL Monocytes # 0.4 (0-1.0) k/uL Eosinophils # 0.1 (0-0.7) k/uL Basophils # 0.0 (0-0.2) k/uL Sodium (137-145) mmol/L Potassium (3.5-5.1) mmol/L Chloride (98-107) mmol/L Carbon Dioxide (22-30) mmol/L Anion Gap mmol/L BUN (7-17) mg/dL Creatinine (0.52-1.04) mg/dL Est GFR (CKD-EPI)AfAm (>60 ml/min/1.73 sqM) Est GFR (CKD-EPI)NonAf (>60 ml/min/1.73 sqM) Glucose (74-99) mg/dL Calcium (8.4-10.2) mg/dL Total Bilirubin (0.2-1.3) mg/dL AST (14-36) U/L ALT (4-34) U/L Alkaline Phosphatase (38-126) U/L Total Protein (6.3-8.2) g/dL Albumin (3.5-5.0) g/dL HCG, Quant mIU/mL Urine Color Yellow Urine Appearance Clear (Clear) Urine pH 6.0 (5.0-8.0) Ur Specific [place] 1.023 (1.001-1.035) Urine Protein Negative (Negative) Urine Glucose (UA) Negative (Negative) Urine Ketones 1+ H (Negative) Urine Blood Negative (Negative) Urine Nitrite Negative (Negative) Urine Bilirubin Negative (Negative) Urine Urobilinogen 2.0 (<2.0) mg/dL Ur Leukocyte Esterase Trace H (Negative) Urine RBC 2 (0-5) /hpf Urine WBC 2 (0-5) /hpf Ur Squamous Epith Cells 1 (0-4) /hpf Urine Bacteria Occasional H (None) /hpf Hyaline Casts 1 (0-2) /lpf Urine Mucus Occasional H (None) /hpf Blood Type O Positive Blood Type Recheck No Previous Record Bld Type Recheck Status [facility] ONLY 05/02/20 Range/Units 16:43 WBC (3.8-10.6) k/uL RBC (3.80-5.40) m/uL Hgb (11.4-16.0) gm/dL Hct (34.0-46.0) % MCV (80.0-100.0) fL MCH (25.0-35.0) pg MCHC (31.0-37.0) g/dL RDW (11.5-15.5) % Plt Count (150-450) k/uL Neutrophils % % Lymphocytes % % Monocytes % % Eosinophils % % Basophils % % Neutrophils # (1.3-7.7) k/uL Lymphocytes # (1.0-4.8) k/uL Monocytes # (0-1.0) k/uL Eosinophils # (0-0.7) k/uL Basophils # (0-0.2) k/uL Sodium 138 (137-145) mmol/L Potassium 4.1 (3.5-5.1) mmol/L Chloride 107 (98-107) mmol/L Carbon Dioxide 20 L (22-30) mmol/L Anion Gap 11 mmol/L BUN 9 (7-17) mg/dL Creatinine 0.48 L (0.52-1.04) mg/dL Est GFR (CKD-EPI)AfAm >90 (>60 ml/min/1.73 sqM) Est GFR (CKD-EPI)NonAf >90 (>60 ml/min/1.73 sqM) Glucose 120 H (74-99) mg/dL Calcium 10.1 (8.4-10.2) mg/dL Total Bilirubin 0.5 (0.2-1.3) mg/dL AST 30 (14-36) U/L ALT 22 (4-34) U/L Alkaline Phosphatase 60 (38-126) U/L Total Protein 7.3 (6.3-8.2) g/dL Albumin 4.2 (3.5-5.0) g/dL HCG, Quant 18332.5 mIU/mL Urine Color Urine Appearance (Clear) Urine pH (5.0-8.0) Ur Specific [place] (1.001-1.035) Urine Protein (Negative) Urine Glucose (UA) (Negative) Urine Ketones (Negative) Urine Blood (Negative) Urine Nitrite (Negative) Urine Bilirubin (Negative) Urine Urobilinogen (<2.0) mg/dL Ur Leukocyte Esterase (Negative) Urine RBC (0-5) /hpf Urine WBC (0-5) /hpf Ur Squamous Epith Cells (0-4) /hpf Urine Bacteria (None) /hpf Hyaline Casts (0-2) /lpf Urine Mucus (None) /hpf Blood Type Blood Type Recheck Bld Type Recheck Status Disposition Clinical Impression: Vaginal bleeding during Disposition: HOME SELF-CARE Condition: Good Instructions (If sedation given, give patient instructions): Threatened Miscarriage (ED) Additional Instructions: Please follow-up with your [employer] by calling for an appointment tomorrow. If you have worsening symptoms return here to the emergency room. Is patient prescribed a controlled substance at d/c from ED?: No Referrals: Prashanth Douglas MD [STAFF PHYSICIAN] - 1-2 days Time of Disposition: 19:17
[2020-05-02 19:35] VITALS: BP 121/78; PULSE 93; RESP 17; TEMP 98.9
== END 2020-05-02 19:36 | disposition home or self-care (01) ==
LOC: EC 16:02
DX: O20.9 Hemorrhage in early pregnancy, unspecified (principal); Z3A.08 8 weeks gestation of pregnancy; Z88.1 Allergy status to other antibiotic agents
CPT/HCPCS: 36415; 76801; 80053; 81001; 84702; 85025; 86900; 86901; 96360; 96361; 99284

== ENCOUNTER 2020-10-16 23:29 | Outpatient (CLI) | payer BC, MEDICARE ==
[2020-10-17] MEDS ORDERED: LACTATED RINGERS 1,000 ML IV SCH ×2 (00:30)
[2020-10-17 00:33] LABS: Appearance,Urine Clear (Clear); Bilirubin,Urine Negative (Negative); Blood,Urine Negative (Negative); Color,Urine Light Yellow; Glucose,Urine (UA) Negative (Negative); Ketones,Urine Negative (Negative); Leukocyte Esterase,Urine Negative (Negative); Nitrite,Urine Negative (Negative); PH, Urine 6.5 (5.0-8.0); Protein,Urine Negative (Negative); Specific Gravity,Urine 1.008 (1.001-1.035); Urobilinogen,Urine <2.0 mg/dL (<2.0)
[2020-10-17 01:12] VITALS: BP 117/76; PULSE 81; RESP 16; TEMP 97.8
--- NOTE | 2020-11-23 10:21 | P.MSEPDOC ---
Presenting Problems - Arrival Data Date of Arrival on Unit: 10/16/20 Time of Arrival on Unit: 23:29 Mode of Transport: Ambulatory - Complaint OB-Reason for Admission/Chief Complaint: Possible Onset of Labor Comment: pt states she has been siomara the past 12 hours Medical History - Information : 8 Para: 4 Term: 4 : 0 Abortions: Spontaneous or Elective: 3 Number of Living Children: 4 - Gestational Age Gestational Age by NAYANA (wks/days): 32 Weeks and 6 Days - History Complications: GDM, Prior Review of Systems - Review of Systems Constitutional: No problems Breast: No problems ENT: No problems Cardiovascular: No problems Respiratory: No problems Gastrointestinal: No problems Genitourinary: No problems Musculoskeletal: No problems Neurological: No problems Skin: No problems Vital Signs - Temperature Temperature: 97.8 F Temperature Source: Oral - Pulse Right Sitting Brachial Pulse Rate: 81 Pulse Assessment Method: Automatic Cuff - Respirations Respiratory Rate: 16 Oxygen Delivery Method: Room Air O2 Sat by Pulse Oximetry: 97 - Blood Pressure Right Arm Supine Blood Pressure: 117/76 Blood Pressure Mean: 89 Blood Pressure Source: Automatic Cuff Medical Screen Scoring (Pre) - Cervical Exam Dilation: 0 cm = 0 Membranes: Intact - Uterine Contractions Frequency: > 5 minutes apart = 1 Duration: N/A Intensity: N/A - Maternal Vital Signs Maternal Temperature: N/A Signs of Preeclampsia: N/A Maternal Respirations: N/A - Maternal Trauma Maternal Trauma: N/A - Assessment - Baby A Baseline FHR: 120 Heart Rate - NICHD Category: Category I (Normal) = 0 NST: Reactive - Total Score - Baby A Total Score - Baby A: 1 - Total Score - Baby B Total Score - Baby B: 1 - Total Score - Baby C Total Score - Baby C: 1 - Level of Risk - Baby A Level of Risk - Baby A: Low (0-5) - Level of Risk - Baby B Level of Risk - Baby B: Low (0-5) - Level of Risk - Baby C Level of Risk - Baby C: Low (0-5) Physician Notification (Pre) - Physician Notified Physician Notified Date: 10/17/20 Physician Notified Time: 00:16 New Order Received: Yes - Notification Comment Comment: IV hydration (2 liters), FFN, send UA Medical Screen Scoring (Post) - Uterine Contractions Frequency: > 5 minutes apart = 1 - Assessment - Baby A Heart Rate: 125 Heart Rate - NICHD Category: Category I (Normal) = 0 - Total Score Total Score - Baby A: 1 Total Score - Baby B: 1 Total Score - Baby C: 1 - Post Treatment Level of Risk Post Treatment Level of Risk - Baby A: Low (0-5) Post Treatment Level of Risk - Baby B: Low (0-5) Post Treatment Level of Risk - Baby C: Low (0-5) Physician Notification (Post) - Physician Notified Physician Notified Date: 10/17/20 Physician Notified Time: 02:07 Physician/Practitioner Notified:: Stella New Order Received: Yes (discharge home) Disposition - Disposition OB Disposition: Discharge to home, Written follow up instructions reviewed Discharge Date: 10/17/20 Discharge Time: 02:20 I agree with the RN Medical Screening Exam: Yes Physician's MSE Comment: I have neither seen nor examined the patient. Case reviewed; plan agreed upon as documented in EMR&OBIX.: Yes Diagnosis: RELATED CONDITIONS, UNSPECIFIED, THIRD TRIMESTER
== END 2020-10-17 02:20 | disposition home or self-care (01) ==
LOC: FBPOP 23:29
PROVIDERS: ATTEND Obstetrics & Gynecology
DX: O26.93 Pregnancy related conditions, unspecified, third trimester (principal); Z3A.32 32 weeks gestation of pregnancy
CPT/HCPCS: 59025; 81003; 82731; 96360; 96361; 99214

== ENCOUNTER 2020-11-12 01:17 | Outpatient (CLI) | payer BC, MEDICARE ==
[2020-11-12 01:45] LABS: Appearance,Urine Clear (Clear); Bacteria,Urine Occasional /hpf; Bilirubin,Urine Negative (Negative); Blood,Urine Moderate (Negative); Color,Urine Light Yellow; Glucose,Urine (UA) Negative (Negative); Ketones,Urine Negative (Negative); Leukocyte Esterase,Urine Trace (Negative); Mucus,Urine Rare /hpf; Nitrite,Urine Negative (Negative); PH, Urine 6.5 (5.0-8.0); Protein,Urine Negative (Negative); RBC,Urine 10 /hpf (0-5); Specific Gravity,Urine 1.009 (1.001-1.035); Squamous Epithelial Cell,Urine 3 /hpf (0-4); Urobilinogen,Urine <2.0 mg/dL (<2.0); WBC,Urine 6 /hpf (0-5)
[2020-11-12] MEDS ORDERED: ACETAMINOPHEN IV (For NPO) 1,000 MG in EMPTY BAG 1 BAG IVPB STA (02:10)
[2020-11-12] MEDS ORDERED: LACTATED RINGERS 1,000 ML IV SCH (02:15)
[2020-11-12 02:40] LABS: ALT 33 U/L (4-34); AST 30 U/L (14-36); African American GFR (CKD) >90 (>60 ml/min/1.73 sqM); Albumin 3.3 g/dL (3.5-5.0); Alkaline Phosphatase 105 U/L (38-126); Anion Gap 6 mmol/L; Blood Urea Nitrogen 10 mg/dL (7-17); Calcium 9.4 mg/dL (8.4-10.2); Carbon Dioxide 20 mmol/L (22-30); Chloride 107 mmol/L (98-107); Glucose 105 mg/dL (74-99); Non-African American GFR(CKD) >90 (>60 ml/min/1.73 sqM); Potassium 4.3 mmol/L (3.5-5.1); Sodium 133 mmol/L (137-145); Total Bilirubin 0.4 mg/dL (0.2-1.3); Total Protein 6.3 g/dL (6.3-8.2)
[2020-11-12 02:58] VITALS: BP 130/78; PULSE 89; RESP 16; TEMP 97.2
[2020-11-12 03:04] LABS: Basophils # (A) 0.1 k/uL (0-0.2); Basophils % (A) 1 %; Eosinophils # (A) 0.1 k/uL (0-0.7); Eosinophils % (A) 1 %; HGB 13.3 gm/dL (11.4-16.0); Lymphocytes # (A) 1.7 k/uL (1.0-4.8); Lymphocytes % (A) 15 %; MCH 32.7 pg (25.0-35.0); MCV 96.1 fL (80.0-100.0); Mean Platelet Volume 9.8; Monocytes # (A) 0.6 k/uL (0-1.0); Monocytes % (A) 5 %; Neutrophils # (A) 8.7 k/uL (1.3-7.7); Neutrophils % (A) 77 %; Platelet Count 191 k/uL (150-450); RBC 4.06 m/uL (3.80-5.40); RDW 14.7 % (11.5-15.5); WBC 11.3 k/uL (3.8-10.6)
--- NOTE | 2020-12-06 15:30 | P.MSEPDOC ---
Presenting Problems - Arrival Data Date of Arrival on Unit: 11/12/20 Time of Arrival on Unit: 01:17 Mode of Transport: Wheelchair - Complaint OB-Reason for Admission/Chief Complaint: Pain, Other Comment: Left back pain 8/10 that radiates to the side and comes in waves. Has increased over the past 2 days. Pt states hx of kidney stones Medical History - Information : 8 Para: 4 Term: 4 : 0 Abortions: Spontaneous or Elective: 3 Number of Living Children: 4 - Gestational Age Gestational Age by NAYANA (wks/days): 36 Weeks and 4 Days - History Complications: GDM Comment: Insulin dependent Review of Systems - Review of Systems Constitutional: No problems Breast: No problems ENT: No problems Cardiovascular: No problems Respiratory: No problems Gastrointestinal: No problems Genitourinary: No problems Musculoskeletal: No problems Neurological: No problems Skin: No problems Vital Signs - Temperature Temperature: 97.2 F Temperature Source: Temporal Artery Scan - Pulse Right Brachial Pulse Rate: 89 Pulse Assessment Method: Automatic Cuff - Respirations Respiratory Rate: 16 Oxygen Delivery Method: Room Air O2 Sat by Pulse Oximetry: 95 - Blood Pressure Right Arm Blood Pressure: 130/78 Blood Pressure Mean: 95 Blood Pressure Source: Automatic Cuff Medical Screen Scoring (Pre) - Cervical Exam Dilation: 1-3 cm = 1 Effacement: Exam Deferred - Uterine Contractions Frequency: Scheduled / = 6 Duration: > 40 seconds = 2 - Maternal Vital Signs Maternal Temperature: N/A Signs of Preeclampsia: N/A Maternal Respirations: N/A - Maternal Trauma Maternal Trauma: N/A - Assessment - Baby A Baseline FHR: 115 Heart Rate - NICHD Category: Category I (Normal) = 0 NST: Reactive - Total Score - Baby A Total Score - Baby A: 9 - Total Score - Baby B Total Score - Baby B: 9 - Total Score - Baby C Total Score - Baby C: 9 - Level of Risk - Baby A Level of Risk - Baby A: Medium (6-9) - Level of Risk - Baby B Level of Risk - Baby B: Medium (6-9) - Level of Risk - Baby C Level of Risk - Baby C: Medium (6-9) Physician Notification (Pre) - Physician Notified Physician Notified Date: 11/12/20 Physician Notified Time: 02:07 New Order Received: Yes - Notification Comment Comment: Reported pt s/sx, orders for 1 L bolus LR, 1 G offirmev, cbc, cmp and recheck cervix in one hour. Physician Notification (Post) - Physician Notified Physician Notified Date: 11/12/20 Physician Notified Time: 03:07 Physician/Practitioner Notified:: Meryl New Order Received: Yes - Notification Comment Comment: Pt d/c home, pain 5/10 dull ache now. Pt to see Dr. Douglas tomorrow 11/13/20, pt reminded of 4G tylenol limit per 24 hours. Disposition - Disposition OB Disposition: Discharge to home, Written follow up instructions reviewed Discharge Date: 11/12/20 Discharge Time: 03:12 I agree with the RN Medical Screening Exam: Yes Physician's MSE Comment: Patient was not seen or examined by myself Case reviewed; plan agreed upon as documented in EMR&OBIX.: Yes Diagnosis: PAIN, UNSPECIFIED
== END 2020-11-12 03:12 | disposition home or self-care (01) ==
LOC: FBPOP 01:17
PROVIDERS: ATTEND Obstetrics & Gynecology Obstetrics
DX: O26.893 Other specified pregnancy related conditions, third trimester (principal); N23 Unspecified renal colic; Z3A.36 36 weeks gestation of pregnancy; Z87.442 Personal history of urinary calculi
CPT/HCPCS: 59025; 99214; 96361; 96365; 80053; 85025; 81001; J0131

== ENCOUNTER 2020-11-14 23:15 | Inpatient (IN) | payer BC, MEDICARE ==
[2020-11-14] MEDS ORDERED: BUTORPHANOL 1 MG/ML 1 ML VIAL IV PRN (23:48)
[2020-11-15] MEDS ORDERED: HYDROmorphone PCA 10 MG/50 ML BAG IV PRN
[2020-11-15] MEDS: LACTATED RINGERS 1,000 ML IV SCH ×4 (00:06→07:33)
[2020-11-15 00:24] LABS: Basophils % (A) 0 %; Eosinophils # (A) 0.1 k/uL (0-0.7); Eosinophils % (A) 1 %; HCT 40.2 % (34.0-46.0); HGB 13.7 gm/dL (11.4-16.0); Lymphocytes # (A) 1.4 k/uL (1.0-4.8); Lymphocytes % (A) 11 %; MCH 32.4 pg (25.0-35.0); MCHC 34.1 g/dL (31.0-37.0); Mean Platelet Volume 9.4; Monocytes # (A) 0.6 k/uL (0-1.0); Monocytes % (A) 4 %; Neutrophils # (A) 10.8 k/uL (1.3-7.7); Neutrophils % (A) 83 %; Platelet Count 204 k/uL (150-450); RBC 4.23 m/uL (3.80-5.40); RDW 13.5 % (11.5-15.5); WBC 13.1 k/uL (3.8-10.6)
--- NOTE | 2020-11-15 00:54 | US ---
EXAM: US Retroperitoneal Limited, Renal CLINICAL HISTORY: ITS.REASON US Reason: possible kidney stone TECHNIQUE: Real-time limited ultrasound of the retroperitoneum with image documentation. COMPARISON: CT abdomen and pelvis from February 15, 2019 FINDINGS: Right kidney: The right kidney measures 11.4 x 6.4 x 5.1 cm, 193 mL. No stones. No hydronephrosis. Left kidney: The left kidney measures 13.8 x 7.5 x 6.3 cm, 340 mL. There is moderate left hydronephrosis. No stones. Bladder: The urinary bladder is decompressed and not well visualized. IMPRESSION: New moderate left hydronephrosis. The previously seen left renal calyceal calculus is no longer visible. The urinary bladder is completely decompressed and not well seen. The right kidney is unremarkable.
[2020-11-15 01:04] LABS: ALT 30 U/L (4-34); AST 27 U/L (14-36); African American GFR (CKD) >90 (>60 ml/min/1.73 sqM); Albumin 3.5 g/dL (3.5-5.0); Alkaline Phosphatase 115 U/L (38-126); Anion Gap 6 mmol/L; Blood Urea Nitrogen 12 mg/dL (7-17); Calcium 9.4 mg/dL (8.4-10.2); Carbon Dioxide 20 mmol/L (22-30); Chloride 108 mmol/L (98-107); Glucose 113 mg/dL (74-99); Non-African American GFR(CKD) >90 (>60 ml/min/1.73 sqM); Potassium 4.5 mmol/L (3.5-5.1); Sodium 134 mmol/L (137-145); Total Bilirubin 0.3 mg/dL (0.2-1.3); Total Protein 6.6 g/dL (6.3-8.2)
[2020-11-15 07:20] LABS: Glucose,Whole Blood 90 mg/dL (75-99)
[2020-11-15 07:58] VITALS: BP 121/69; PULSE 76; RESP 18; TEMP 96.3
--- NOTE | 2020-11-15 11:00 | P.HPOB ---
History of Present Illness H&P Date: 11/15/20 Chief Complaint: 36-6/7 weeks, gestational diabetes, nephrolithiasis, acute pain The patient is a 40-year-old multiparous woman who is well-known to my practice who is admitted to the hospital at 36-6/7 weeks by good dating parameters secondary to acute onset of pain secondary to nephrolithiasis. She has a known diagnosis and has been experiencing pain recently but, this evening, was unable to tolerate anything by mouth and could not control the pain with either Tylenol or Tylenol 3. She presented to the hospital with significant nausea and vomiting and dehydration was admitted for aggressive IV hydration as well as IV pain control. Her has been complicated by insulin-dependent gestational diabetes for which she is managed by [facility]. She ad ditionally has a history of a DVT in the past for which she has been managed with Lovenox during the . testing has been reassuring throughout. Obstetrical history: The record is not available in the chart at this time but will be made so. She is a multiparous patient as noted above at 36-6/7 weeks by good dating parameters. Laboratory workup was entirely benign aside from her known diabetes. She additionally carries a history of a previous DVT for which she has been on Lovenox throughout the . Gynecologic history: Unremarkable with no history of any infections to include STDs. Review of Systems Review of systems is confined to history of present illness. Past Medical History Past Medical History: Fibromyalgia Additional Past Medical History / Comment(s): chronic fatigue syndrome, kidney stones, diverticulosis, gastroparesis, gestational diabetes, being worked up for clotting disorder History of Any Multi-Drug Resistant Organisms: None Reported Past Surgical History: Section, Cholecystectomy, Orthopedic Surgery, Tonsillectomy Additional Past Surgical History / Comment(s): kidney stone removal Past Anesthesia/Blood Transfusion Reactions: No Reported Reaction Past Psychological History: Anxiety Smoking Status: Never smoker Past Alcohol Use History: None Reported Past Drug Use History: None Reported - Past Family History Mother Family Medical History: No Reported History Medications and Allergies Home Medications Medication Instructions Recorded Confirmed Type Vpp-Imrr-Kjrma Acid 1 cap PO DAILY 04/14/19 11/15/20 History [-U Capsule (formulary)] Aspirin [Adult Low Dose Aspirin EC] 81 mg PO DAILY 10/17/20 11/15/20 History Enoxaparin [Lovenox] 40 mg SQ DAILY 10/17/20 11/15/20 History Ferrous Sulfate [Iron] 1 tab PO BID 10/17/20 11/15/20 History Insulin Glargine,Hum.rec.anlog 8 units SQ DAILY 10/17/20 11/15/20 History [Basaglar Kwikpen U-100] Insulin Glargine,Hum.rec.anlog 20 units SQ HS 10/17/20 11/15/20 History [Basaglar Kwikpen U-100] Allergies Allergy/AdvReac Type Severity Reaction Status Date / Time ciprofloxacin [From Cipro] Allergy Rash/Hives Verified 11/15/20 00:18 Exam Vital Signs Temp Pulse Resp BP Pulse Ox 11/15/20 07:56 96.3 F L 76 18 121/69 95 11/14/20 23:33 95.6 F L 104 H 16 144/88 95 Intake and Output 11/14/20 11/15/20 11/15/20 22:59 06:59 14:59 Intake Total 1000 Balance 1000 Intake: IV 1000 Other: Weight 103.419 kg In general, this is a well-developed, well-nourished white female who was in significant distress at the time of admission. Her heart had a regular rhythm and rate without murmur. Her lungs clear to auscultation bilaterally in all obrien. Her abdomen is gravid, nondistended, soft, nontender, without any palpable masses aside from uterine fundus. She does have fairly significant flank pain on the left. Her extremities without any cyanosis, clubbing, or significant edema and are nontender to palpation bilaterally. Digital cervical examination is deferred though she has been dilated to 3 cm in the office. Results Result Diagrams: 11/15/20 00:06 11/15/20 00:06 Abnormal Lab Results - Last 24 Hours (Table) 11/15/20 11/15/20 Range/Units 00:06 00:06 WBC 13.1 H (3.8-10.6) k/uL Neutrophils # 10.8 H (1.3-7.7) k/uL Sodium 134 L (137-145) mmol/L Chloride 108 H (98-107) mmol/L Carbon Dioxide 20 L (22-30) mmol/L Glucose 113 H (74-99) mg/dL Assessment and Plan (1) 36 to 37 weeks gestation of Current Visit: Yes Status: Acute Code(s): SJG2957 - SNOMED Code(s): 793084853 (2) Acute pain Current Visit: Yes Status: Acute Code(s): R52 - PAIN, UNSPECIFIED SNOMED Code(s): 280406137 (3) Nephrolithiasis Current Visit: Yes Status: Acute Code(s): N20.0 - CALCULUS OF KIDNEY SNOM ED Code(s): 50116654 (4) Gestational diabetes Current Visit: Yes Status: Acute Code(s): O24.419 - GESTATIONAL DIABETES MELLITUS IN , UNSP CONTROL SNOMED Code(s): 48266962 (5) History of DVT (deep vein thrombosis) Current Visit: Yes Status: Acute Code(s): Z86.718 - PERSONAL HISTORY OF OTHER VENOUS THROMBOSIS AND EMBOLISM SNOMED Code(s): 872527315 (6) Nausea and vomiting Current Visit: Yes Status: Acute Code(s): R11.2 - NAUSEA WITH VOMITING, UNSPECIFIED SNOMED Code(s): 85431574 (7) Dehydration Current Visit: Yes Status: Acute Code(s): E86.0 - DEHYDRATION SNOMED Code(s): 88585960 Plan: The patient is admitted for IV hydration aggressively as well as IV pain control. She was started on a Dilaudid BLADDER TIER as single dose of Stadol failed to control her pain. She will be managed in this manner until her pain is manageable and she is able to tolerate at least liquids or solids. We will continue to monitor her blood sugars and continue her Lovenox 40 mg daily. status is reassuring with a category 1 heart rate tracing.
--- NOTE | 2020-11-15 11:06 | P.DS ---
Providers Date of admission: 11/14/20 23:58 Expected date of discharge: 11/15/20 Attending physician: Prashanth Douglas Primary care physician: Stated None - Discharge Diagnosis(es) (1) 36 to 37 weeks gestation of Current Visit: Yes Status: Acute (2) Acute pain Current Visit: Yes Status: Acute (3) Nephrolithiasis Current Visit: Yes Status: Acute (4) Gestational diabetes Current Visit: Yes Status: Acute (5) History of DVT (deep vein thrombosis) Current Visit: Yes Status: Acute (6) Nausea and vomiting Current Visit: Yes Status: Acute (7) Dehydration Current Visit: Yes Status: Acute Hospital Course: The patient is a 40-year-old multiparous woman who is well-known to me and was admitted at 36-6/7 weeks by good dating parameters for acute onset of pain secondary to nephrolithiasis. Her has been complicated by history of DVT as well as gestational insulin dependent diabetes with testing having been reassuring. She presented unable to tolerate anything by mouth for significant nausea and vomiting and dehydration as result as well as acute pain in the left flank secondary to a known diagnosis of nephrolithiasis. She had aggressive rehydration and a Dilaudid [employer] [employer] for which she used it only several times. She had sudden immunization of her pain this morning and was able to tolerate both liquids and solids by mouth. She did not see a stone past but felt as though it may have been in her bladder appeared an initial ordered for urology consult was canceled as the patient's pain had improved. She was deemed stable for discharge on the morning of hospital day #2 and was discharged home to follow-up in the office next week as previously scheduled. Discharge instructions included calling for any significantly increased pain, concerns, or anything else that concerned her. status throughout the hospitalization was reassuring with category 1 heart rate tracings. Discharge medications included only those that she undergo hospital on with daily Lovenox as well as insulin per maternal medicine instructions. She additionally was to continue her vitamin. She understood all of her instructions and agrees follow up as noted above. Procedures: #1. IV hydration #2. IV pain control Patient Condition at Discharge: Stable Plan - Discharge Summary New Discharge Prescriptions: No Action Ivt-Rrez-Tqmrb Acid [-U Capsule (formulary)] 1 cap PO DAILY Ferrous Sulfate [Iron] 1 tab PO BID Enoxaparin [Lovenox] 40 mg SQ DAILY Aspirin [Adult Low Dose Aspirin EC] 81 mg PO DAILY Insulin Glargine,Hum.rec.anlog [Basaglar Kwikpen U-100] 8 units SQ DAILY Insulin Glargine,Hum.rec.anlog [Basaglar Kwikpen U-100] 20 units SQ HS Discharge Medication List Gyh-Bpfn-Fmutf Acid [-U Capsule (formulary)] 1 cap PO DAILY 04/14/19 [History] Aspirin [Adult Low Dose Aspirin EC] 81 mg PO DAILY 10/17/20 [History] Enoxaparin [Lovenox] 40 mg SQ DAILY 10/17/20 [History] Ferrous Sulfate [Iron] 1 tab PO BID 10/17/20 [History] Insulin Glargine,Hum.rec.anlog [Basaglar Kwikpen U-100] 8 units SQ DAILY 10/17/20 [History] Insulin Glargine,Hum.rec.anlog [Basaglar Kwikpen U-100] 20 units SQ HS 10/17/20 [History] Follow up Appointment(s)/Referral(s): Prashanth Douglas MD [STAFF PHYSICIAN] - 1 Week Discharge Disposition: HOME SELF-CARE
== END 2020-11-15 11:22 | disposition home or self-care (01) | DRG 833 ==
LOC: FBPOP 23:15 → 4FBP 23:58 → OBSVTOIN 11-15 10:11
PROVIDERS: ADMIT Obstetrics & Gynecology; ATTEND Obstetrics & Gynecology
DX: O26.833 Pregnancy related renal disease, third trimester (principal); E86.0 Dehydration; Z79.4 Long term (current) use of insulin; O24.424 Gestational diabetes mellitus in childbirth, insulin controlled; N20.0 Calculus of kidney; Z3A.36 36 weeks gestation of pregnancy; M79.7 Fibromyalgia; R53.82 Chronic fatigue, unspecified; O99.613 Diseases of the digestive system complicating pregnancy, third trimester; K31.84 Gastroparesis; K57.90 Diverticulosis of intestine, part unspecified, without perforation or abscess without bleeding; Z79.82 Long term (current) use of aspirin; Z79.01 Long term (current) use of anticoagulants; Z79.899 Other long term (current) drug therapy; Z86.718 Personal history of other venous thrombosis and embolism; Z87.442 Personal history of urinary calculi; Z98.891 History of uterine scar from previous surgery; Z90.49 Acquired absence of other specified parts of digestive tract; Z87.19 Personal history of other diseases of the digestive system; Z98.890 Other specified postprocedural states; Z86.59 Personal history of other mental and behavioral disorders
CPT/HCPCS: 59025; 76770; 80053; 85025; 99213

== ENCOUNTER 2020-11-16 03:14 | Inpatient (IN) | payer BC, MEDICARE ==
[2020-11-16] MEDS ORDERED: LIDOCAINE 0.5% (PF) 5 MG/ML (50 ML SDV) SQ PRN (03:59)
[2020-11-16] MEDS ORDERED: TERBUTALINE 1 MG/ML VIAL SQ PRN (03:59)
[2020-11-16] MEDS ORDERED: OXYTOCIN 10 UNIT/ML 1 ML VIAL IM PRN (03:59)
[2020-11-16] MEDS ORDERED: METHYLERGONOVINE 0.2 MG/ML 1 ML AMP IM PRN (03:59)
[2020-11-16] MEDS ORDERED: CARBOPROST TROMETHAMINE 250 MCG/ML 1 ML AMP IM PRN (03:59)
[2020-11-16] MEDS ORDERED: AMPICILLIN 2,000 MG in SODIUM CHLORIDE 0.9% 100 ML IVPB ONE (04:00)
[2020-11-16 04:29] LABS: Glucose,Whole Blood 88 mg/dL (75-99)
[2020-11-16] MEDS: LACTATED RINGERS 1,000 ML IV SCH ×3 (04:32→20:35)
[2020-11-16 04:39] LABS: Basophils % (A) 0 %; Eosinophils # (A) 0.1 k/uL (0-0.7); Eosinophils % (A) 1 %; HCT 38.4 % (34.0-46.0); HGB 13.1 gm/dL (11.4-16.0); Lymphocytes # (A) 1.6 k/uL (1.0-4.8); Lymphocytes % (A) 17 %; MCH 32.3 pg (25.0-35.0); Mean Platelet Volume 9.3; Monocytes # (A) 0.5 k/uL (0-1.0); Monocytes % (A) 5 %; Neutrophils % (A) 74 %; Platelet Count 214 k/uL (150-450); RBC 4.04 m/uL (3.80-5.40); RDW 14.1 % (11.5-15.5); WBC 9.5 k/uL (3.8-10.6)
[2020-11-16] MEDS ORDERED: ROPIVACAINE 100 MG, fentaNYL (PF) 200 MCG in SODIUM CHLORIDE 0.9% 76 ML EPIDURAL ONE (06:44)
[2020-11-16] MEDS ORDERED: OXYTOCIN 30 UNITS/500 ML NS 30 UNIT in SALINE 1 500ML.BAG IV SCH ×2 (07:00→12:00)
[2020-11-16 07:17] LABS: Glucose,Whole Blood 85 mg/dL (75-99)
[2020-11-16] MEDS: AMPICILLIN 1,000 MG in SODIUM CHLORIDE 0.9% 50 ML IVPB SCH ×2 (08:45→13:08)
[2020-11-16 10:49] LABS: Glucose,Whole Blood 65 mg/dL (75-99)
[2020-11-16] MEDS ORDERED: BENZOCAINE/MENTHOL SPRAY 1 GM/SPRAY AEROSOL TOPICAL PRN (11:59)
[2020-11-16] MEDS ORDERED: diphenhydrAMINE 25 MG CAP PO PRN (11:59)
[2020-11-16] MEDS ORDERED: ZOLPIDEM 5 MG TAB PO PRN (11:59)
[2020-11-16] MEDS ORDERED: LANOLIN CREAM 5 GM TUBE TOPICAL PRN (11:59)
[2020-11-16] MEDS ORDERED: SIMETHICONE 80 MG CHEWABLE PO PRN (11:59)
[2020-11-16] MEDS ORDERED: HYDROCORTISONE 2.5% RECTAL CREAM 30 GM TUBE RECTAL PRN (11:59)
[2020-11-16] MEDS ORDERED: diphenhydrAMINE 50 MG/ML 1 ML VIAL IVP PRN ×2 (11:59)
[2020-11-16] MEDS ORDERED: diphenhydrAMINE 50 MG CAP PO PRN (11:59)
--- NOTE | 2020-11-16 12:04 | P.HPOB ---
History of Present Illness H&P Date: 11/16/20 Chief Complaint: IUP @ 37 1/7 weeks, GDM, MTHFr def This is a 40-year-old 8P 3134 at 37-1/7 weeks presents to labor and delivery with complaints of spontaneous rupture of membranes. Patient has been seen multiple times throughout this in triage for renal lithiasis. She was seen most recently on and was admitted overnight for pain control. Patient denied contractions upon presentation to triage. Patient has been receiving routine care with Dr. Prashanth Douglas. Patient's care been compensated by insulin-dependent gestational diabetes, patient has a history of a DVT in her past. Patient was seen by [facility] and placed on insulin for her gestational diabetes. Her blood sugar control has been reasonable. Her last dose of Lovenox was 11 AM on 11/15. 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 On blood work she has a blood type of O+, rubella status immune, RPR is nonreactive, hepBsurface antigen is negative, HIV is negative, GBS is pending. Review of Systems Constitutional: Denies chills, Denies fatigue, Denies fever Ears, nose, mouth and throat: Denies headache Cardiovascular: Reports leg edema Respiratory: Denies dyspnea Gastrointestinal: Denies constipation, Denies diarrhea, Denies nausea, Denies vomiting Genitourinary: Reports Past Medical History Past Medical History: Fibromyalgia Additional Past Medical History / Comment(s): chronic fatigue syndrome, kidney s tones, diverticulosis, gastroparesis, gestational diabetes, being worked up for clotting disorder History of Any Multi-Drug Resistant Organisms: None Reported Past Surgical History: Section, Cholecystectomy, Orthopedic Surgery, Tonsillectomy Additional Past Surgical History / Comment(s): kidney stone removal Past Anesthesia/Blood Transfusion Reactions: No Reported Reaction Past Psychological History: Anxiety Smoking Status: Never smoker Past Alcohol Use History: None Reported Past Drug Use History: None Reported - Past Family History Mother Family Medical History: No Reported History Medications and Allergies Home Medications Medication Instructions Recorded Confirmed Type Bjl-Gjpb-Rxtsm Acid 1 cap PO DAILY 04/14/19 11/16/20 History [-U Capsule (formulary)] Aspirin [Adult Low Dose Aspirin EC] 81 mg PO DAILY 10/17/20 11/16/20 History Enoxaparin [Lovenox] 40 mg SQ DAILY 10/17/20 11/16/20 History Ferrous Sulfate [Iron] 1 tab PO BID 10/17/20 11/16/20 History Insulin Glargine,Hum.rec.anlog 8 units SQ DAILY 10/17/20 11/16/20 History [Basaglar Kwikpen U-100] Insulin Glargine,Hum.rec.anlog 20 units SQ HS 10/17/20 11/16/20 History [Basaglar Kwikpen U-100] Allergies Allergy/AdvReac Type Severity Reaction Status Date / Time ciprofloxacin [From Cipro] Allergy Rash/Hives Verified 11/16/20 03:42 Exam Osteopathic Statement: *. No significant issues noted on an osteopathic structural exam other than those noted in the History and Physical/Consult. Vital Signs Temp Pulse Resp BP Pulse Ox 11/16/20 03:56 98.0 F 78 16 126/77 97 11/16/20 03:42 98.0 F 97 16 126/77 97 Intake and Output 11/15/20 11/15/20 11/16/20 14:59 22:59 06:59 Other: Weight 104.78 kg Targeted physical exam is performed on this date and rehabilitation psychologist a well-nourished well-developed female in no acute distress, breathing is noted to nonlabored, heart has regular rate and rhythm, abdomen is gravid. On cervical exam per RN she is 5-6, 70, -2. She is siomara every 2-3 minutes and breathing through them. She is requesting epidural at this current time. heart tones returned be category 1 contractions are not graphing well. Results Result Diagrams: 11/16/20 04:30 Assessment and Plan (1) 37 weeks gestation of Current Visit: Yes Status: Acute Code(s): Z3A.37 - 37 WEEKS GESTATION OF SNOMED Code(s): 29872486 (2) SROM (spontaneous rupture of membranes) Current Visit: Yes Status: Acute Code(s): GLM5080 - SNOMED Code(s): 307367078 (3) Gestational diabetes Current Visit: No Status: Acute Code(s): O24.419 - GESTATIONAL DIABETES MELLITUS IN , UNSP CONTROL SNOMED Code(s): 91625151 (4) History of DVT (deep vein thrombosis) Current Visit: No Status: Acute Code(s): Z86.718 - PERSONAL HISTORY OF OTHER VENOUS THROMBOSIS AND EMBOLISM SNOMED Code(s): 134056290 (5) Nephrolithiasis Current Visit: No Status: Acute Code(s): N20.0 - CALCULUS OF KIDNEY SNOMED Code(s): 75359782 Plan: Patient is admitted to labor and delivery, expectant management. Antibiotics are started given unknown GBS and gestational age. Anticipate normal spontaneous vaginal delivery.
--- NOTE | 2020-11-16 12:09 | P.PROBDLV ---
Vaginal Delivery Note - . Vaginal Delivery Note: this is a 40-year-old 8 para 3134 that presented to labor and delivery at 37 and one sevenths weeks with complaints of spontaneous rupture of membranes. Patient states she noted rupture of membranes around 1 AM, clear in nature. Patient denied contractions. Patient was admitted to labor and delivery for expectant management. Patient has been receiving routine care which has been complicated by gestational diabetes for which she has been on insulin and followed by maternal- medicine. Patient also has a remote history of a DVT and possible MTHFr deficiency and has been on Lovenox. Patient's last was also a primary secondary to a vaginal infection for which she does not remember. Patient desires vaginal delivery. patient states she last took her Lovenox at 11 AM on 09/14. patient has been struggling with this with renal lithiasis and has had multiple admissions for pain control. On bloodwork this patient's blood type is O+, rubella immune, hepatitis B surface antigen negative, HIV negative, RPR nonreactive, group beta strep was pending therefore antibiotics were started and 2 doses were given prior to delivery. patient began siomara spontaneously a proximally 1-2 hours after admission, patient requested epidural placement. Epidural was placed by the anesthesia department. Patient was noted to make no further change and contractions were spacing considerably therefore Pitocin augmentation of labor was begun. Patient progressed slowly through labor eventually did become complete and began pushing. With excellent maternal effort, she had a normal spontaneous vaginal delivery of a viable male infant at 1141, a loose nuchal cord was delivered through, a true knot was appreciated. After two-minute delayed the umbilical cord was doubly clamped and cut and the was handed off to the maternal abdomen. The placenta was then delivered spontaneously intact with a three- vessel cord being noted. On inspection the patient's vaginal vault a periurethral laceration was noted this was repaired with 4-0 chromic in a yascuw-ff-vrvgb fashion. Hemostasis was appreciated afterwards. Uterus noted be firm and below the umbilicus at this time. Minimal blood loss approximately 100 mL was noted during the delivery. All counts were noted be correct 2 at the end of the procedure. Of note the bladder was drained with a red rubber catheter for approximately 100 mL after the delivery of the placenta. Patient and tolerated delivery well and are resting comfortably. viable male infant delivered at 1141, weight of 7 lbs. 9 oz. and Apgars of 99 at one and 5 minutes respectively.
[2020-11-16 13:56] LABS: Hemoglobin A1C 5.2 % (4.0-6.0)
[2020-11-16] MEDS: ENOXAPARIN 40 MG/0.4 ML SYRINGE SQ SCH (19:06)
[2020-11-16] MEDS: SENNOSIDES-DOCUSATE SODIUM 1 EACH TAB PO SCH (20:34)
[2020-11-16] MEDS: IBUPROFEN 600 MG TAB PO PRN (23:15)
[2020-11-17] MEDS: IBUPROFEN 600 MG TAB PO PRN ×3 (08:11→21:15)
[2020-11-17] MEDS: SENNOSIDES-DOCUSATE SODIUM 1 EACH TAB PO SCH ×2 (08:12→21:15)
--- NOTE | 2020-11-17 09:23 | P.DS ---
Providers Date of admission: 11/16/20 03:31 Expected date of discharge: 11/17/20 Attending physician: Prashanth Douglas Primary care physician: Stated None - Discharge Diagnosis(es) (1) 37 weeks gestation of Current Visit: Yes Status: Acute (2) SROM (spontaneous rupture of membranes) Current Visit: Yes Status: Acute (3) Gestational diabetes Current Visit: No Status: Acute (4) History of DVT (deep vein thrombosis) Current Visit: No Status: Acute (5) Nephrolithiasis Current Visit: No Status: Acute (6) Status post normal vaginal delivery Current Visit: Yes Status: Acute Hospital Course: this is a 40-year-old 8 para 3134 at 37 and one sevenths weeks that presented to labor and delivery with complaints of spontaneous rupture of membranes. Patient was siomara minimally upon admission. Soon after admission patient was noted to be uncomfortable and siomara every 2-3 minutes. Patient did request epidural placement. Epidural was placed without difficulty by the anesthesia department. Patient progressed slowly to complete began pushing and had a normal spontaneous vaginal delivery of a viable male at 1141, weight of 7 lbs. 9 oz. with Apgars of 9 and 9 at one and 5 minutes or sexually. Patient did sustain a periurethral laceration which was repaired in the usual fashion. On this day #1 she is ambulating and voiding without difficulty. She is tolerating a regular diet without nausea or vomiting. She states she is feeling well and would like discharge home at 24 hours if possible. Patient Condition at Discharge: Good Plan - Discharge Summary New Discharge Prescriptions: No Action Yup-Cuph-Wyyry Acid [-U Capsule (formulary)] 1 cap PO DAILY Ferrous Sulfate [Iron] 1 tab PO BID Enoxaparin [Lovenox] 40 mg SQ DAILY Aspirin [Adult Low Dose Aspirin EC] 81 mg PO DAILY Insulin Glargine,Hum.rec.anlog [Basaglar Kwikpen U-100] 8 units SQ DAILY Insulin Glargine,Hum.rec.anlog [Basaglar Kwikpen U-100] 20 units SQ HS Discharge Medication List Szf-Jwgf-Pplmu Acid [-U Capsule (formulary)] 1 cap PO DAILY 04/14/19 [History] Aspirin [Adult Low Dose Aspirin EC] 81 mg PO DAILY 10/17/20 [History] Enoxaparin [Lovenox] 40 mg SQ DAILY 10/17/20 [History] Ferrous Sulfate [Iron] 1 tab PO BID 10/17/20 [History] Insulin Glargine,Hum.rec.anlog [Basaglar Kwikpen U-100] 8 units SQ DAILY 10/17/20 [History] Insulin Glargine,Hum.rec.anlog [Basaglar Kwikpen U-100] 20 units SQ HS 10/17/20 [History] Patient Instructions/Handouts: Vaginal Delivery (GEN), Vaginal Delivery (DC)
[2020-11-17] MEDS: PRENATAL VIT-IRON-FOLIC ACID 1 EACH CAP PO SCH (15:40)
[2020-11-17 17:25] LABS: HCT 33.3 % (34.0-46.0); HGB 11.7 gm/dL (11.4-16.0); MCH 33.6 pg (25.0-35.0); MCV 96.1 fL (80.0-100.0); Mean Platelet Volume 8.8; Platelet Count 168 k/uL (150-450); RBC 3.47 m/uL (3.80-5.40); RDW 13.6 % (11.5-15.5)
[2020-11-17] MEDS: ACETAMINOPHEN TAB 325 MG TAB PO PRN ×2 (17:44→23:54)
[2020-11-17] MEDS: ENOXAPARIN 40 MG/0.4 ML SYRINGE SQ SCH (18:20)
[2020-11-17] MEDS: AMOXIC-POT CLAV 875-125MG 1 EACH TAB PO SCH (21:15)
[2020-11-17 23:36] VITALS: RESP 16
[2020-11-18] MEDS: IBUPROFEN 600 MG TAB PO PRN ×2 (03:07→09:10)
[2020-11-18] MEDS: ACETAMINOPHEN TAB 325 MG TAB PO PRN (06:04)
[2020-11-18] MEDS: PRENATAL VIT-IRON-FOLIC ACID 1 EACH CAP PO SCH (07:55)
[2020-11-18] MEDS: AMOXIC-POT CLAV 875-125MG 1 EACH TAB PO SCH (07:55)
[2020-11-18] MEDS: SENNOSIDES-DOCUSATE SODIUM 1 EACH TAB PO SCH (07:55)
[2020-11-18 08:09] VITALS: PULSE 75; TEMP 98
[2020-11-18 09:12] VITALS: BP 139/78
--- NOTE | 2020-11-18 10:15 | P.PNOBGVD ---
Subjective - Subjective Principal diagnosis: PPD 2 Interval history: pt is doing well, . she was noting some increase pain with fundal check yesterday. antibiotics started secondary to presumed endomyometritis. She is sleeping upon entry to the room this morning. Baby did stay overnight secondary to elevated bilirubin and is currently on bili lights. Lochia has been appropriate, uterus has been firm and below the umbilicus. She has been ambulating and voiding without difficulty. Patient reports: Reports appetite normal, Reports voiding normally, Reports pain well controlled, Reports ambulating normally [place]: doing well (on bili lights ) Objective - Latest Vital Signs Latest vital signs: Vital Signs Temp Pulse Resp BP 11/17/20 23:34 98.5 F 86 16 122/79 11/17/20 16:00 98.4 F 86 14 125/77 11/17/20 08:00 98.3 F 86 14 119/77 Intake and Output 11/17/20 11/18/20 11/18/20 22:59 06:59 14:59 Other: # Voids 3 1 - Exam Extremities: Present: normal, edema Abdomen: Present: normal appearance, soft Uterus: Present: normal, firm, tenderness - Labs Labs: Abnormal Lab Results - Last 24 Hours (Table) 11/17/20 Range/Units 17:16 RBC 3.47 L (3.80-5.40) m/uL Hct 33.3 L (34.0-46.0) % Assessment and Plan (1) 37 weeks gestation of Current Visit: Yes Status: Acute Code(s): Z3A.37 - 37 WEEKS GESTATION OF SNOMED Code(s): 14682305 (2) SROM (spontaneous rupture of membranes) Current Visit: Yes Status: Acute Code(s): ANK7000 - SNOMED Code(s): 547315630 (3) Gestational diabetes Current Visit: No Status: Acute Code(s): O24.419 - GESTATIONAL DIABETES MELLITUS IN , UNSP CONTROL SNOMED Code(s): 47124599 (4) History of DVT (deep vein thrombosis) Current Visit: No Status: Acute Code(s): Z86.718 - PERSONAL HISTORY OF OTHER VENOUS THROMBOSIS AND EMBOLISM SNOMED Code(s): 506324821 (5) Nephrolithiasis Current Visit: No Status: Acute Code(s): N20.0 - CALCULUS OF KIDNEY SNOMED Code(s): 07774945 (6) Status post normal vaginal delivery Current Visit: Yes Status: Acute Code(s): RAD4261 - SNOMED Code(s): 899375608 Plan: This 40-year-old G8 now P5035 status post normal spontaneous vaginal delivery after spontaneous rupture of membranes. Patient was doing well and then noted increased discomfort abdominally therefore antibiotics were begun for presumed endomyometritis. Patient was resting comfortably this morning and sleeping upon entry to the room. We'll plan discharge home later today pending examination.
[2020-11-18] MEDS: ENOXAPARIN 40 MG/0.4 ML SYRINGE SQ SCH (10:36)
== END 2020-11-18 11:45 | disposition home or self-care (01) | DRG 806 ==
LOC: FBPOP 03:14 → 4FBP 03:31 → UNDOADMIN 03:31
PROVIDERS: ADMIT Obstetrics & Gynecology Obstetrics; ATTEND Obstetrics & Gynecology
PROC: 10E0XZZ Delivery of Products of Conception, External Approach (ICD-10-PCS; principal; 2020-11-16)
PROC: 00HU33Z Insertion of Infusion Device into Spinal Canal, Percutaneous Approach (ICD-10-PCS; principal; 2020-11-16)
PROC: 0UQMXZZ Repair Vulva, External Approach (ICD-10-PCS; principal; 2020-11-16)
PROC: 3E0R3NZ Introduction of Analgesics, Hypnotics, Sedatives into Spinal Canal, Percutaneous Approach (ICD-10-PCS; principal; 2020-11-16)
DX: O24.424 Gestational diabetes mellitus in childbirth, insulin controlled (principal); O26.833 Pregnancy related renal disease, third trimester; Z37.0 Single live birth; E72.12 Methylenetetrahydrofolate reductase deficiency; O69.81X0 Labor and delivery complicated by cord around neck, without compression, not applicable or unspecified; O99.284 Endocrine, nutritional and metabolic diseases complicating childbirth; O71.82 Other specified trauma to perineum and vulva; O99.344 Other mental disorders complicating childbirth; F41.9 Anxiety disorder, unspecified; K31.84 Gastroparesis; M79.7 Fibromyalgia; N20.0 Calculus of kidney; Z3A.37 37 weeks gestation of pregnancy; Z79.82 Long term (current) use of aspirin; Z86.718 Personal history of other venous thrombosis and embolism; Z87.442 Personal history of urinary calculi; Z90.89 Acquired absence of other organs; Z88.1 Allergy status to other antibiotic agents
CPT/HCPCS: 59025; 83036; 84112; 85025; 85027; 86850; 86900; 86901; 99213

== ENCOUNTER 2022-04-30 23:14 | Emergency (ER) | payer BC, MEDICARE ==
[2022-05-01 00:59] LABS: Basophils # (A) 0.1 k/uL (0-0.2); Basophils % (A) 1 %; Eosinophils # (A) 0.3 k/uL (0-0.7); Eosinophils % (A) 3 %; HCT 39.9 % (34.0-46.0); HGB 12.7 gm/dL (11.4-16.0); Lymphocytes % (A) 33 %; MCH 28.5 pg (25.0-35.0); MCHC 31.9 g/dL (31.0-37.0); MCV 89.5 fL (80.0-100.0); Mean Platelet Volume 9.5; Monocytes # (A) 0.6 k/uL (0-1.0); Monocytes % (A) 6 %; Neutrophils # (A) 5.2 k/uL (1.3-7.7); Neutrophils % (A) 57 %; Platelet Count 269 k/uL (150-450); RBC 4.46 m/uL (3.80-5.40); RDW 13.4 % (11.5-15.5); WBC 9.3 k/uL (3.8-10.6)
[2022-05-01 01:12] LABS: ALT 60 U/L (4-34); AST 56 U/L (14-36); African American GFR (CKD) >90 (>60 ml/min/1.73 sqM); Albumin 4.8 g/dL (3.5-5.0); Alkaline Phosphatase 106 U/L (38-126); Anion Gap 10 mmol/L; Blood Urea Nitrogen 12 mg/dL (7-17); Calcium 11.4 mg/dL (8.4-10.2); Carbon Dioxide 26 mmol/L (22-30); Chloride 102 mmol/L (98-107); Glucose 145 mg/dL (74-99); Magnesium 1.6 mg/dL (1.6-2.3); Non-African American GFR(CKD) >90 (>60 ml/min/1.73 sqM); Potassium 4.2 mmol/L (3.5-5.1); Sodium 138 mmol/L (137-145); Total Bilirubin 0.4 mg/dL (0.2-1.3); Total Protein 8.1 g/dL (6.3-8.2)
[2022-05-01 01:31] LABS: Prothrombin Time 10.5 sec (9.0-12.0)
[2022-05-01] MEDS ORDERED: MORPHINE SULFATE 4 MG/ML SYRINGE IV STA (01:45)
--- NOTE | 2022-05-01 01:47 | XR ---
EXAMINATION TYPE: XR chest 2V DATE OF EXAM: 05/01/2022 COMPARISON: None HISTORY: Chest pain TECHNIQUE: FINDINGS: Heart and mediastinum are normal. Lungs are clear. Diaphragm is normal. Bony thorax appears normal. IMPRESSION: Normal chest
--- NOTE | 2022-05-01 02:01 | ED ---
General Adult HPI - General Chief complaint: Chest Pain Stated complaint: Chest & Rib Pain Time Seen by Provider: 05/01/22 01:14 Source: patient Mode of arrival: ambulatory Limitations: no limitations - History of Present Illness Initial comments: This patient is a 41-year-old woman who presents to have evaluation of left upper abdominal and left flank pain. She states it had initially come on a few days ago and has been getting worse. She states she has had similar symptoms 2 times in the past and was told that this was diverticulitis. The patient states she also is having occasional loose stools. She has not noticed any blood or dark tarry stools. Patient states that tonight she started having left rib pain and this prompted her to be evaluated here. She has not had pain with breathing. She is not having any cough or hemoptysis. No dyspnea or diaphoresis. Onset/Timin -: days(s) Location: abdomen Radiation: non-radiation Quality: dull Consistency: intermittent Improves with: none Worsens with: none Associated Symptoms: denies other symptoms Treatments Prior to Arrival: none - Related Data Home Medications Medication Instructions Recorded Confirmed Nim-Isev-Csrgv Acid 1 cap PO DAILY 04/14/19 11/16/20 [-U Capsule (formulary)] Aspirin [Adult Low Dose Aspirin EC] 81 mg PO DAILY 10/17/20 11/16/20 Enoxaparin [Lovenox] 40 mg SQ DAILY 10/17/20 11/16/20 Ferrous Sulfate [Iron] 1 tab PO BID 10/17/20 11/16/20 Insulin Glargine,Hum.rec.anlog 8 units SQ DAILY 10/17/20 11/16/20 [Basaglar Kwikpen U-100] Insulin Glargine,Hum.rec.anlog 20 units SQ HS 10/17/20 11/16/20 [Basaglar Kwikpen U-100] Previous Rx's Medication Instructions Recorded Famotidine [Pepcid] 20 mg PO BID #14 tablet 05/01/22 Allergies Allergy/AdvReac Type Severity Reaction Status Date / Time ciprofloxacin [From Cipro] Allergy Rash/Hives Verified 04/30/22 23:22 Review of Systems ROS Statement: Those systems with pertinent positive or pertinent negative responses have been documented in the HPI. ROS Other: All systems not noted in ROS Statement are negative. Constitutional: Denies: fever, chills Respiratory: Denies: cough, dyspnea Cardiovascular: Reports: as per HPI, chest pain. Denies: palpitations, edema Gastrointestinal: Reports: as per HPI, abdominal pain, diarrhea. Denies: nausea, vomiting, constipation, melena, hematochezia Genitourinary: Denies: dysuria, hematuria, abnormal menses Musculoskeletal: Denies: back pain Skin: Denies: rash Neurological: Denies: headache, weakness Past Medical History Past Medical History: Fibromyalgia Additional Past Medical History / Comment(s): chronic fatigue syndrome, kidney stones, diverticulosis, gastroparesis, gestational diabetes, being worked up for clotting disorder History of Any Multi-Drug Resistant Organisms: None Reported Past Surgical History: Section, Cholecystectomy, Orthopedic Surgery, Tonsillectomy Additional Past Surgical History / Comment(s): kidney stone removal Past Anesthesia/Blood Transfusion Reactions: No Reported Reaction Past Psychological History: Anxiety Smoking Status: Never smoker Past Alcohol Use History: None Reported Past Drug Use History: None Reported - Past Family History Mother Family Medical History: No Reported History General Exam Limitations: no limitations General appearance: alert, in no apparent distress Head exam: Present: atraumatic, normocephalic Eye exam: Present: normal appearance. Absent: scleral icterus, conjunctival injection Neck exam: Present: normal inspection Respiratory exam: Present: normal lung sounds bilaterally. Absent: respiratory distress, wheezes, rales, rhonchi, stridor Cardiovascular Exam: Present: regular rate, normal rhythm, normal heart sounds. Absent: systolic murmur, diastolic murmur, rubs, gallop GI/Abdominal exam: Present: soft, normal bowel sounds. Absent: distended, tenderness, guarding, rebound, rigid, mass, pulsatile mass, hernia Extremities exam: Present: normal inspection, normal capillary refill. Absent: pedal edema, calf tenderness Back exam: Present: normal inspection. Absent: CVA tenderness (R), CVA tenderness (L) Neurological exam: Present: alert Skin exam: Present: warm, dry, intact, normal color. Absent: rash Course Vital Signs 04/30/22 05/01/22 23:19 00:52 Temperature 97.8 F Pulse Rate 88 79 Respiratory 18 17 Rate Blood Pressure 145/106 157/91 O2 Sat by Pulse 97 96 Oximetry Medical Decision Making - Lab Data Result diagrams: 05/01/22 00:53 05/01/22 00:53 Lab Results 05/01/22 05/01/22 05/01/22 Range/Units 00:53 00:53 00:53 WBC 9.3 (3.8-10.6) k/uL RBC 4.46 (3.80-5.40) m/uL Hgb 12.7 (11.4-16.0) gm/dL Hct 39.9 (34.0-46.0) % MCV 89.5 (80.0-100.0) fL MCH 28.5 (25.0-35.0) pg MCHC 31.9 (31.0-37.0) g/dL RDW 13.4 (11.5-15.5) % Plt Count 269 (150-450) k/uL MPV 9.5 Neutrophils % 57 % Lymphocytes % 33 % Monocytes % 6 % Eosinophils % 3 % Basophils % 1 % Neutrophils # 5.2 (1.3-7.7) k/uL Lymphocytes # 3.0 (1.0-4.8) k/uL Monocytes # 0.6 (0-1.0) k/uL Eosinophils # 0.3 (0-0.7) k/uL Basophils # 0.1 (0-0.2) k/uL PT 10.5 (9.0-12.0) sec INR 1.0 (<1.2) APTT 24.0 (22.0-30.0) sec D-Dimer 0.38 (<0.60) mg/L FEU Sodium 138 (137-145) mmol/L Potassium 4.2 (3.5-5.1) mmol/L Chloride 102 (98-107) mmol/L Carbon Dioxide 26 (22-30) mmol/L Anion Gap 10 mmol/L BUN 12 (7-17) mg/dL Creatinine 0.78 (0.52-1.04) mg/dL Est GFR (CKD-EPI)AfAm >90 (>60 ml/min/1.73 sqM) Est GFR (CKD-EPI)NonAf >90 (>60 ml/min/1.73 sqM) Glucose 145 H (74-99) mg/dL Calcium 11.4 H (8.4-10.2) mg/dL Magnesium 1.6 (1.6-2.3) mg/dL Total Bilirubin 0.4 (0.2-1.3) mg/dL AST 56 H (14-36) U/L ALT 60 H (4-34) U/L Alkaline Phosphatase 106 (38-126) U/L Troponin I (0.000-0.034) ng/mL Total Protein 8.1 (6.3-8.2) g/dL Albumin 4.8 (3.5-5.0) g/dL Urine Color Urine Appearance (Clear) Urine pH (5.0-8.0) Ur Specific Spark[place] (1.001-1.035) Urine Protein (Negative) Urine Glucose (UA) (Negative) Urine Ketones (Negative) Urine Blood (Negative) Urine Nitrite (Negative) Urine Bilirubin (Negative) Urine Urobilinogen (<2.0) mg/dL Ur Leukocyte Esterase (Negative) Urine RBC (0-5) /hpf Urine WBC (0-5) /hpf Ur Squamous Epith Cells (0-4) /hpf Urine Bacteria (None) /hpf Hyaline Casts (0-2) /lpf Urine Mucus (None) /hpf Urine HCG, Qual (Not Detectd) 05/01/22 05/01/22 05/01/22 Range/Units 00:53 05:00 05:00 WBC (3.8-10.6) k/uL RBC (3.80-5.40) m/uL Hgb (11.4-16.0) gm/dL Hct (34.0-46.0) % MCV (80.0-100.0) fL MCH (25.0-35.0) pg MCHC (31.0-37.0) g/dL RDW (11.5-15.5) % Plt Count (150-450) k/uL MPV Neutrophils % % Lymphocytes % % Monocytes % % Eosinophils % % Basophils % % Neutrophils # (1.3-7.7) k/uL Lymphocytes # (1.0-4.8) k/uL Monocytes # (0-1.0) k/uL Eosinophils # (0-0.7) k/uL Basophils # (0-0.2) k/uL PT (9.0-12.0) sec INR (<1.2) APTT (22.0-30.0) sec D-Dimer (<0.60) mg/L FEU Sodium (137-145) mmol/L Potassium (3.5-5.1) mmol/L Chloride (98-107) mmol/L Carbon Dioxide (22-30) mmol/L Anion Gap mmol/L BUN (7-17) mg/dL Creatinine (0.52-1.04) mg/dL Est GFR (CKD-EPI)AfAm (>60 ml/min/1.73 sqM) Est GFR (CKD-EPI)NonAf (>60 ml/min/1.73 sqM) Glucose (74-99) mg/dL Calcium (8.4-10.2) mg/dL Magnesium (1.6-2.3) mg/dL Total Bilirubin (0.2-1.3) mg/dL AST (14-36) U/L ALT (4-34) U/L Alkaline Phosphatase (38-126) U/L Troponin I <0.012 (0.000-0.034) ng/mL Total Protein (6.3-8.2) g/dL Albumin (3.5-5.0) g/dL Urine Color Yellow Urine Appearance Clear (Clear) Urine pH 5.5 (5.0-8.0) Ur Specific Sparkill 1.022 (1.001-1.035) Urine Protein Negative (Negative) Urine Glucose (UA) Negative (Negative) Urine Ketones Negative (Negative) Urine Blood Negative (Negative) Urine Nitrite Negative (Negative) Urine Bilirubin Negative (Negative) Urine Urobilinogen <2.0 (<2.0) mg/dL Ur Leukocyte Esterase Small H (Negative) Urine RBC 2 (0-5) /hpf Urine WBC 2 (0-5) /hpf Ur Squamous Epith Cells 3 (0-4) /hpf Urine Bacteria Occasional H (None) /hpf Hyaline Casts 1 (0-2) /lpf Urine Mucus Rare H (None) /hpf Urine HCG, Qual Not Detected (Not Detectd) Disposition Clinical Impression: Flank pain Disposition: HOME SELF-CARE Condition: Good Instructions (If sedation given, give patient instructions): Flank Pain (ED) Prescriptions: Famotidine [Pepcid] 20 mg PO BID #14 tablet Is patient prescribed a controlled substance at d/c from ED?: No Referrals: None,Stated [Primary Care Provider] - 1-2 days
[2022-05-01] MEDS ORDERED: METOCLOPRAMIDE 5 MG/ML 2 ML VIAL IVP STA (02:07)
--- NOTE | 2022-05-01 03:22 | CT ---
EXAMINATION TYPE: CT abdomen pelvis wo con DATE OF EXAM: 05/01/2022 COMPARISON: 02/15/2019 HISTORY: left flank pain. CT DLP: 1207.4 mGycm Automated exposure control for dose reduction was used. Images obtained from the diaphragm to the floor the pelvis with no contrast. Lung bases are clear of infiltrate. No pleural effusion. Heart size is normal. No pericardial effusio n. There is diffuse fatty infiltration of the liver. Liver measures 23 cm. Spleen is intact. No evide nce of pancreatic mass. Stomach is intact. There are clips from cholecystectomy. There is no adrenal mass. Kidneys have normal size. No hydronephrosis. The ureters are not dilated. T here is 3 mm nonobstructing calculus in the lower pole left kidney. No retroperitoneal adenopathy. Bl adder distends smoothly. No inguinal hernia. No free fluid in the pelvis. Uterus is anteverted. No pe lvic mass. Appendix is lateral and posterior and appears normal. The cecum is medial. The lumbar vertebrae have normal spacing and alignment. Posterior elements are intact. No compression fracture. Bony pelvis is intact. Hip joints are intact. There is no mesenteric edema. No ascites or free air. No sign of a bowel obstruction. IMPRESSION: Fatty infiltration of the liver. Normal appendix. No acute abnormality in the abdomen and pelvis. Juliana er increased compared to old exam.
[2022-05-01 06:02] LABS: Appearance,Urine Clear (Clear); Bacteria,Urine Occasional /hpf; Bilirubin,Urine Negative (Negative); Blood,Urine Negative (Negative); Color,Urine Yellow; Glucose,Urine (UA) Negative (Negative); Hyaline Casts,Urine 1 /lpf (0-2); Ketones,Urine Negative (Negative); Leukocyte Esterase,Urine Small (Negative); Mucus,Urine Rare /hpf; Nitrite,Urine Negative (Negative); PH, Urine 5.5 (5.0-8.0); Protein,Urine Negative (Negative); RBC,Urine 2 /hpf (0-5); Specific Gravity,Urine 1.022 (1.001-1.035); Squamous Epithelial Cell,Urine 3 /hpf (0-4); Urobilinogen,Urine <2.0 mg/dL (<2.0); WBC,Urine 2 /hpf (0-5)
[2022-05-01 09:02] VITALS: BP 132/83; PULSE 85; RESP 16; TEMP 97.5
== END 2022-05-01 09:04 | disposition home or self-care (01) ==
LOC: EC 23:14
DX: R10.12 Left upper quadrant pain (principal); R07.81 Pleurodynia; Z88.1 Allergy status to other antibiotic agents; Z87.442 Personal history of urinary calculi
CPT/HCPCS: 36415; 93005; 85379; 80053; 83735; 84484; 85025; 85610; 85730; 81001; 81025; 71046; 74176; 96374; 96375; 99285; J2270; J2765

== ENCOUNTER 2023-03-21 11:28 | Emergency (ER) | payer BC, MEDICARE ==
[2023-03-21 12:06] VITALS: TEMP 97.5
[2023-03-21] MEDS ORDERED: ASPIRIN 81 MG PO STA (12:37)
--- NOTE | 2023-03-21 12:58 | ED ---
General Adult HPI - General Chief complaint: Chest Pain Stated complaint: chest pain Time Seen by Provider: 03/21/23 11:54 Source: patient Mode of arrival: ambulatory Limitations: no limitations - History of Present Illness Initial comments: Dictation was produced using iWant[employer] dictation software. please excuse any grammatical, word or spelling errors. Chief Complaint: 42-year-old female past medical history of diabetes presents for chest pain History of Present Illness:-year-old female presents with chest pain. States his pressure to her substernal area radiates to her right jaw. Her father is diagnosed with acute coronary syndrome since age of 60. Patient concerned she is having a heart attack. Denies any shortness of breath. States that its pressure-like. No associated nausea or vomiting. She does not have any history of tobacco use. The ROS documented in this emergency department record has been reviewed and c onfirmed by me. Those systems with pertinent positive or negative responses have been documented in the HPI. All other systems are other negative and/or noncontributory. - Related Data Home Medications Medication Instructions Recorded Confirmed Cholecalciferol [Vitamin D3 (25 25 mcg PO DAILY 03/21/23 03/21/23 Mcg = 1000 Iu)] FLUoxetine HCL [PROzac] 20 mg PO DAILY 03/21/23 03/21/23 Multivitamins, Thera [Multivitamin 1 tab PO DAILY 03/21/23 03/21/23 (formulary)] Semaglutide [Ozempic] 0.5 mg SQ FR 03/21/23 03/21/23 metFORMIN HCL 500 mg PO BID-W/MEALS 03/21/23 03/21/23 traZODone HCL [Desyrel] 50 mg PO HS 03/21/23 03/21/23 Allergies Allergy/AdvReac Type Severity Reaction Status Date / Time ciprofloxacin [From Cipro] Allergy Rash/Hives Verified 03/21/23 16:48 Review of Systems ROS Statement: Those systems with pertinent positive or pertinent negative responses have been documented in the HPI. ROS Other: All systems not noted in ROS Statement are negative. Past Medical History Past Medical History: Diabetes Mellitus, Fibromyalgia Additional Past Medical History / Comment(s): chronic fatigue syndrome, kidney stones, diverticulosis, gastroparesis, gestational diabetes, being worked up for clotting disorder History of Any Multi-Drug Resistant Organisms: None Reported Past Surgical History: Section, Cholecystectomy, Orthopedic Surgery, Tonsillectomy Additional Past Surgical History / Comment(s): kidney stone removal Past Anesthesia/Blood Transfusion Reactions: No Reported Reaction Past Psychological History: Anxiety Smoking Status: Never smoker Past Alcohol Use History: None Reported Past Drug Use History: None Reported - Past Family History Mother Family Medical History: No Reported History General Exam - General Exam Comments Initial Comments: PHYSICAL EXAM: General Impression: Alert and oriented x3, not in acute distress HEENT: Normocephalic atraumatic, extra-ocular movements intact, pupils equal and reactive to light bilaterally, mucous membranes moist. Cardiovascular: Heart regular rate and rhythm Chest: Able to complete full sentences, no retractions, no tachypnea Abdomen: abdomen soft, non-tender, non-distended, no organomegaly Musculoskeletal: Pulses present and equal in all extremities, no peripheral edema Motor: no focal deficits noted Neurological: CN II-XII grossly intact, no focal motor or sensory deficits noted Skin: Intact with no visualized rashes Psych: Normal affect and mood Limitations: no limitations Course Vital Signs 03/21/23 03/21/23 03/21/23 11:31 12:00 12:01 Temperature 98.3 F 97.5 F L Pulse Rate 83 69 Respiratory 20 16 Rate Blood Pressure 115/82 112/82 O2 Sat by Pulse 99 97 Oximetry Fraction of 97 Inspired Oxygen (FIO2) 03/21/23 03/21/23 03/21/23 12:06 14:41 17:18 Temperature Pulse Rate 81 74 Respiratory 16 18 18 Rate Blood Pressure 124/90 124/90 O2 Sat by Pulse 98 95 Oximetry Fraction of Inspired Oxygen (FIO2) EKG Findings - EKG Comments: EKG Findings:: My EKG interpretation: Ventricular rate 75, sinus rhythm,. 124, QRS 84, QTC 421. No OR prolongation, no QTC prolongation, no ST or T-wave changes noted. Overall, this EKG is unremarkable Medical Decision Making - Medical Decision Making Was pt. sent in by a medical professional or institution (, PA, SUPERVISOR MACHINING, urgent care, hospital, or detention...) When possible be specific @ -No Did you speak to anyone other than the patient for history (EMS, parent, family, police, friend...)? What history was obtained from this source @ -No Did you review nursing and triage notes (agree or disagree)? Why? @ -I reviewed and agree with nursing and triage notes Were old charts reviewed (outside hosp., previous admission, EMS record, old EKG, old radiological studies, urgent care reports/EKG's, detention records)? Report findings @ -No old charts were reviewed Differential Diagnosis (chest pain, altered mental status, abdominal pain women, abdominal pain men, vaginal bleeding, musculoskeletal, weakness, fever, dyspnea, syncope, headache, dizziness, GI bleed, back pain, seizure, CVA, palpatations, mental health)? @ -Differential Chest Pain: Stable Angina, Unstable Angina, STEMI, NSTEMI Aortic Dissection, Pneumothorax, Musculoskeletal, Esophageal Spasm GERD, Cholecystitis, Pancreatitis, Zoster, this is not meant to be an all-inclusive list. EKG interpreted by me (3pts min.). @ -See above X-rays interpreted by me (1pt min.). @ -Chest x-ray shows no acute processes CT interpreted by me (1pt min.). @ -None done U/S interpreted by me (1pt. min.). @ -None done What testing was considered but not performed or refused? (CT, X-rays, U/S, labs)? Why? @ -None What meds were considered but not given or refused? Why? @ -None Did you discuss the management of the patient with other professionals (professionals i.e. , PA, SUPERVISOR MACHINING, lab, RT, psych nurse, social services director, building operator, teacher, client sales and service officer, high risk case manager)? Give summary @ -No Was smoking cessation discussed for >3mins.? @ -No Was critical care preformed (if so, how long)? @ -No Were there social determinants of health that impacted care today? How? (Homelessness, low income, unemployed, alcoholism, drug addiction, transportation, low edu. Level, literacy, decrease access to med. care, fdc, rehab)? @ -No Was there de-escalation of care discussed even if they declined (Discuss DNR or withdrawal of care, Hospice)? DNR status @ -No What co-morbidities impacted this encounter? (DM, HTN, Smoking, COPD, CAD, Cancer, CVA, ARF, Chemo, Hep., AIDS, mental health diagnosis, sleep apnea, morbid obesity)? @ -None Was patient admitted / discharged? Hospital course, mention meds given and route, prescriptions, significant lab abnormalities, going to OR and other pertinent info. @ -Year-old male presents emergency department with atypical chest pain with typical features. Vital signs are stable. EKG is unremarkable. Laboratory evaluation obtained. CBC, coag panel metabolic panel is unremarkable. Troponin level is negative. As recommended that patient be admitted for cardiac monitoring, serial troponins and cardiology consultation. Patient refuses and would rather be discharge. States that her symptoms are significantly improved since being in emergency department. Will follow up with primary care doctor and cardiology. Patient given return precautions. She is understandable and agreeable. Undiagnosed new problem with uncertain prognosis? @ -No Drug Therapy requiring intensive monitoring for toxicity (Heparin, Nitro, Insulin, Cardizem)? @ -No Were any procedures done? @ -No Diagnosis/symptom? Acute, or Chronic, or Acute on Chronic? Uncomplicated (without systemic symptoms) or Complicated (systemic symptoms)? @ -1. Chest pain Side effects of treatment? @ -No Exacerbation, Progression, or Severe Exacerbation? @ -No Poses a threat to life or bodily function? How? (Chest pain, [place], [place], pneumonia, PE, COPD, DKA, ARF, appy, cholecystitis, CVA, Diverticulitis, Homicidal, Suicidal, threat to staff... and all critical care pts) @ -yes - Lab Data Result diagrams: 03/21/23 14:40 03/21/23 17:14 Lab Results 03/21/23 03/21/23 03/21/23 Range/Units 14:40 15:35 17:14 WBC 5.9 (3.8-10.6) k/uL RBC 4.69 (3.80-5.40) m/uL Hgb 12.7 (11.4-16.0) gm/dL Hct 40.0 (34.0-46.0) % MCV 85.3 (80.0-100.0) fL MCH 27.1 (25.0-35.0) pg MCHC 31.7 (31.0-37.0) g/dL RDW 16.1 H (11.5-15.5) % Plt Count 153 (150-450) k/uL MPV 15.5 Neutrophils % 65 % Lymphocytes % 26 % Monocytes % 6 % Eosinophils % 2 % Basophils % 0 % Neutrophils # 3.8 (1.3-7.7) k/uL Lymphocytes # 1.6 (1.0-4.8) k/uL Monocytes # 0.3 (0-1.0) k/uL Eosinophils # 0.1 (0-0.7) k/uL Basophils # 0.0 (0-0.2) k/uL Manual Slide Review Performed Anisocytosis Slight PT 11.0 (9.0-12.0) sec INR 1.0 (<1.2) APTT 24.5 (22.0-30.0) sec Sodium 137 (137-145) mmol/L Potassium 3.8 (3.5-5.1) mmol/L Chloride 104 (98-107) mmol/L Carbon Dioxide 23 (22-30) mmol/L Anion Gap 10 mmol/L BUN 5 L (7-17) mg/dL Creatinine 0.48 L (0.52-1.04) mg/dL Est GFR (CKD-EPI)AfAm >90 (>60 ml/min/1.73 sqM) Est GFR (CKD-EPI)NonAf >90 (>60 ml/min/1.73 sqM) Glucose 81 (74-99) mg/dL Calcium 9.2 (8.4-10.2) mg/dL Magnesium 1.8 (1.6-2.3) mg/dL Total Bilirubin 0.6 (0.2-1.3) mg/dL AST 49 H (14-36) U/L ALT 43 H (4-34) U/L Alkaline Phosphatase 63 (38-126) U/L Troponin I (0.000-0.034) ng/mL Total Protein 7.0 (6.3-8.2) g/dL Albumin 4.0 (3.5-5.0) g/dL 03/21/23 Range/Units 17:14 WBC (3.8-10.6) k/uL RBC (3.80-5.40) m/uL Hgb (11.4-16.0) gm/dL Hct (34.0-46.0) % MCV (80.0-100.0) fL MCH (25.0-35.0) pg MCHC (31.0-37.0) g/dL RDW (11.5-15.5) % Plt Count (150-450) k/uL MPV Neutrophils % % Lymphocytes % % Monocytes % % Eosinophils % % Basophils % % Neutrophils # (1.3-7.7) k/uL Lymphocytes # (1.0-4.8) k/uL Monocytes # (0-1.0) k/uL Eosinophils # (0-0.7) k/uL Basophils # (0-0.2) k/uL Manual Slide Review Anisocytosis PT (9.0-12.0) sec INR (<1.2) APTT (22.0-30.0) sec Sodium (137-145) mmol/L Potassium (3.5-5.1) mmol/L Chloride (98-107) mmol/L Carbon Dioxide (22-30) mmol/L Anion Gap mmol/L BUN (7-17) mg/dL Creatinine (0.52-1.04) mg/dL Est GFR (CKD-EPI)AfAm (>60 ml/min/1.73 sqM) Est GFR (CKD-EPI)NonAf (>60 ml/min/1.73 sqM) Glucose (74-99) mg/dL Calcium (8.4-10.2) mg/dL Magnesium (1.6-2.3) mg/dL Total Bilirubin (0.2-1.3) mg/dL AST (14-36) U/L ALT (4-34) U/L Alkaline Phosphatase (38-126) U/L Troponin I <0.012 (0.000-0.034) ng/mL Total Protein (6.3-8.2) g/dL Albumin (3.5-5.0) g/dL Disposition Clinical Impression: Chest pain Disposition: HOME SELF-CARE Condition: Fair Instructions (If sedation given, give patient instructions): Chest Pain (ED) Is patient prescribed a controlled substance at d/c from ED?: No Referrals: Hermelinda Castaneda MD [Primary Care Provider] - 1-2 days Time of Disposition: 19:16
[2023-03-21 14:44] VITALS: RESP 18
[2023-03-21 15:21] LABS: Anisocytosis Slight; Basophils % (A) 0 %; Eosinophils # (A) 0.1 k/uL (0-0.7); Eosinophils % (A) 2 %; HGB 12.7 gm/dL (11.4-16.0); Lymphocytes # (A) 1.6 k/uL (1.0-4.8); Lymphocytes % (A) 26 %; MCH 27.1 pg (25.0-35.0); MCHC 31.7 g/dL (31.0-37.0); MCV 85.3 fL (80.0-100.0); Mean Platelet Volume 15.5; Monocytes # (A) 0.3 k/uL (0-1.0); Monocytes % (A) 6 %; Neutrophils # (A) 3.8 k/uL (1.3-7.7); Neutrophils % (A) 65 %; Platelet Count 153 k/uL (150-450); RBC 4.69 m/uL (3.80-5.40); RDW 16.1 % (11.5-15.5); WBC 5.9 k/uL (3.8-10.6)
--- NOTE | 2023-03-21 16:02 | XR ---
EXAMINATION TYPE: XR chest 2V DATE OF EXAM: 03/21/2023 COMPARISON: 05/01/2022 HISTORY: 42-year-old female with chest pain TECHNIQUE: AP and lateral views FINDINGS: Heart normal size. Aorta and pulmonary vasculature within normal limits. Strandy atelectasis left bas e. No consolidation or pleural effusion. IMPRESSION: No acute cardiopulmonary process.
[2023-03-21 16:06] LABS: Partial Thromboplastin Time 24.5 sec (22.0-30.0)
[2023-03-21 17:35] LABS: ALT 43 U/L (4-34); AST 49 U/L (14-36); African American GFR (CKD) >90 (>60 ml/min/1.73 sqM); Alkaline Phosphatase 63 U/L (38-126); Anion Gap 10 mmol/L; Blood Urea Nitrogen 5 mg/dL (7-17); Calcium 9.2 mg/dL (8.4-10.2); Carbon Dioxide 23 mmol/L (22-30); Chloride 104 mmol/L (98-107); Glucose 81 mg/dL (74-99); Magnesium 1.8 mg/dL (1.6-2.3); Non-African American GFR(CKD) >90 (>60 ml/min/1.73 sqM); Potassium 3.8 mmol/L (3.5-5.1); Sodium 137 mmol/L (137-145); Total Bilirubin 0.6 mg/dL (0.2-1.3)
[2023-03-21 19:37] VITALS: BP 130/81; PULSE 73
== END 2023-03-21 19:37 | disposition home or self-care (01) ==
LOC: EC 11:28
DX: R07.89 Other chest pain (principal); E11.9 Type 2 diabetes mellitus without complications; F41.9 Anxiety disorder, unspecified; Z79.84 Long term (current) use of oral hypoglycemic drugs; Z88.1 Allergy status to other antibiotic agents; Z79.899 Other long term (current) drug therapy
CPT/HCPCS: 36415; 71046; 80053; 83735; 84484; 85025; 85610; 85730; 93005; 99285

== ENCOUNTER 2023-07-01 22:27 | Emergency (ER) | payer BC, MEDICARE ==
[2023-07-01 23:22] VITALS: RESP 16
[2023-07-01] MEDS ORDERED: SODIUM CHLORIDE 0.9% 1,000 ML IV ONE (23:26)
[2023-07-02 00:12] LABS: ALT 39 U/L (4-34); AST 46 U/L (14-36); African American GFR (CKD) >90 (>60 ml/min/1.73 sqM); Albumin 4.4 g/dL (3.5-5.0); Alkaline Phosphatase 71 U/L (38-126); Anion Gap 12 mmol/L; Basophils % (A) 0 %; Blood Urea Nitrogen 11 mg/dL (7-17); Calcium 10.1 mg/dL (8.4-10.2); Carbon Dioxide 21 mmol/L (22-30); Chloride 104 mmol/L (98-107); Eosinophils # (A) 0.2 k/uL (0-0.7); Eosinophils % (A) 2 %; Glucose 98 mg/dL (74-99); HCT 35.5 % (34.0-46.0); HGB 11.4 gm/dL (11.4-16.0); Lymphocytes # (A) 2.6 k/uL (1.0-4.8); Lymphocytes % (A) 28 %; MCH 27.2 pg (25.0-35.0); MCV 84.9 fL (80.0-100.0); Mean Platelet Volume 9.8; Monocytes # (A) 0.6 k/uL (0-1.0); Monocytes % (A) 6 %; Neutrophils # (A) 5.6 k/uL (1.3-7.7); Neutrophils % (A) 61 %; Non-African American GFR(CKD) >90 (>60 ml/min/1.73 sqM); Platelet Count 268 k/uL (150-450); Potassium 4.2 mmol/L (3.5-5.1); RBC 4.18 m/uL (3.80-5.40); RDW 15.4 % (11.5-15.5); Sodium 137 mmol/L (137-145); Total Bilirubin 0.6 mg/dL (0.2-1.3); WBC 9.2 k/uL (3.8-10.6)
[2023-07-02 00:35] LABS: Appearance,Urine Clear (Clear); Bilirubin,Urine Negative (Negative); Blood,Urine Negative (Negative); Color,Urine Yellow; Glucose,Urine (UA) Negative (Negative); Ketones,Urine Negative (Negative); Leukocyte Esterase,Urine Negative (Negative); Nitrite,Urine Negative (Negative); PH, Urine 5.5 (5.0-8.0); Protein,Urine Trace (Negative); Specific Gravity,Urine 1.027 (1.001-1.035); Urobilinogen,Urine <2.0 mg/dL (<2.0)
--- NOTE | 2023-07-02 01:29 | ED ---
General Adult HPI - General Chief complaint: Abdominal Pain Stated complaint: Low Abd pain, headache Time Seen by Provider: 07/01/23 23:07 Source: patient, RN notes reviewed Mode of arrival: ambulatory Limitations: no limitations - History of Present Illness Initial comments: 43-year-old female with past medical history significant for fibromya lgia presents the emergency department with a chief complaint of pelvic pain. Patient reports sharp pelvic pain that radiates to the right side for weekss. She has not taken anything for his symptoms. She reports cholecystectomy however still has her appendix. She reports this has been an ongoing issue. She denies any fever, nausea, vomiting, flank pain, dysuria, hematuria, vaginal bleeding. Patient reporting what she describes as thunderclap headache for the last 3-1/2 days after having sex. - Related Data Home Medications Medication Instructions Recorded Confirmed Cholecalciferol [Vitamin D3 (25 25 mcg PO DAILY 03/21/23 03/21/23 Mcg = 1000 Iu)] FLUoxetine HCL [PROzac] 20 mg PO DAILY 03/21/23 03/21/23 Multivitamins, Thera [Multivitamin 1 tab PO DAILY 03/21/23 03/21/23 (formulary)] Semaglutide [Ozempic] 0.5 mg SQ FR 03/21/23 03/21/23 metFORMIN HCL 500 mg PO BID-W/MEALS 03/21/23 03/21/23 traZODone HCL [Desyrel] 50 mg PO HS 03/21/23 03/21/23 Allergies Allergy/AdvReac Type Severity Reaction Status Date / Time ciprofloxacin [From Cipro] Allergy Rash/Hives Verified 07/01/23 22:32 Review of Systems ROS Statement: Those systems with pertinent positive or pertinent negative responses have been documented in the HPI. ROS Other: All systems not noted in ROS Statement are negative. Past Medical History Past Medical History: Diabetes Mellitus, Fibromyalgia Additional Past Medical History / Comment(s): chronic fatigue syndrome, kidney stones, diverticulosis, gastroparesis, gestational diabetes, being worked up for clotting disorder History of Any Multi-Drug Resistant Organisms: None Reported Past Surgical History: Section, Cholecystectomy, Orthopedic Surgery, Tonsillectomy Additional Past Surgical History / Comment(s): kidney stone removal Past Anesthesia/Blood Transfusion Reactions: No Reported Reaction Past Psychological History: Anxiety Smoking Status: Never smoker Past Alcohol Use History: None Reported Past Drug Use History: None Reported - Past Family History Mother Family Medical History: No Reported History General Exam - General Exam Comments Initial Comments: General: Alert, in no acute distress Head: atraumatic normocephalic. Eyes PERRL, EOMI intact, mucous membranes moist Respiratory: Lungs clear to auscultation bilaterally Cardiovascular: Regular rate and rhythm Abdominal: Soft without guarding or rebound, right lower quadrant pain, suprapubic tenderness Extremities: Normal inspection with full range of motion and normal capillary refill Neuroogic: alert and oriented 3, CN II-XII intact, able to ambulate with steady gait Skin: warm dry and intact with normal color Limitations: no limitations Course Vital Signs 07/01/23 07/01/23 07/02/23 22:28 23:17 01:58 Temperature 98.0 F Pulse Rate 96 85 69 Respiratory 20 16 16 Rate Blood Pressure 156/100 140/89 112/67 O2 Sat by Pulse 97 94 L 94 L Oximetry 07/02/23 03:17 Temperature 97.8 F Pulse Rate 68 Respiratory 16 Rate Blood Pressure 108/64 O2 Sat by Pulse 100 Oximetry - Reevaluation(s) Reevaluation #1: 07/02/23 03:07 Patient reevaluated. Patient offered pain medication however she declined. Medical Decision Making - Medical Decision Making Was pt. sent in by a medical professional or institution (ANDRE Hu, COIL TAPER, urgent care, hospital, or intermediate...) When possible be specific @ -[No] Did you speak to anyone other than the patient for history (EMS, parent, family, police, friend...)? What history was obtained from this source @ -[No] Did you review nursing and triage notes (agree or disagree)? Why? @ -[I reviewed and agree with nursing and triage notes] Were old charts reviewed (outside hosp., previous admission, EMS record, old EKG, old radiological studies, urgent care reports/EKG's, intermediate records)? Report findings @ -[No old charts were reviewed] Differential Diagnosis (chest pain, altered mental status, abdominal pain women, abdominal pain men, vaginal bleeding, weakness, fever, dyspnea, syncope, h eadache, dizziness, GI bleed, back pain, seizure, CVA, palpatations, mental health, musculoskeletal)? @ -[not applicable] EKG interpreted by me (3pts min.). @ -[As above] X-rays interpreted by me (1pt min.). @ -[None done] CT interpreted by me (1pt min.). @ -[None done] U/S interpreted by me (1pt. min.). @ -Yes What testing was considered but not performed or refused? (CT, X-rays, U/S, labs)? Why? @ -[None] What meds were considered but not given or refused? Why? @ -[None] Did you discuss the management of the patient with other professionals (professionals i.e. DrGreg, PA, COIL TAPER, lab, RT, psych nurse, social secretary, risk control director, teacher, immigration officer, home health care case manager)? Give summary @ -[No] Was smoking cessation discussed for >3mins.? @ -[No] Was critical care preformed (if so, how long)? @ -[No] Were there social determinants of health that impacted care today? How? (Homelessness, low income, unemployed, alcoholism, drug addiction, transportation, low edu. Level, literacy, decrease access to med. care, residential, rehab)? @ -[No] Was there de-escalation of care discussed even if they declined (Discuss DNR or withdrawal of care, Hospice)? DNR status @ -[No] What co-morbidities impacted this encounter? (DM, HTN, Smoking, COPD, CAD, Cancer, CVA, ARF, Chemo, Hep., AIDS, mental health diagnosis, sleep apnea, morbid obesity)? @ -[None] Was patient admitted / discharged? Hospital course, mention meds given and route, prescriptions, significant lab abnormalities, going to OR and other pertinent info. @Discharged. This is a pleasant 43-year-old female who presents the emergency department with lower abdominal pain and a headache. Patient had a thorough history and physical exam performed on the ED. Heart rate regular rate and rhythm, lungs clear to auscultation bilaterally, abdomen soft with mild supra pubic tenderness. No focal neuro deficits noted on exam. Patient able to move all extremities freely. Patient had extensive laboratory and imaging studies performed which were essentially negative. I discussed the results in detail with the patient who verbalized understanding and all questions were addressed. Return precautions were discussed at length. Patient discharged in stable condition. Case discussed with Dr. Sung [facility] who agrees to clinic c are Undiagnosed new problem with uncertain prognosis? @ -[No] Drug Therapy requiring intensive monitoring for toxicity (Heparin, Nitro, Insulin, Cardizem)? @ -[No] Were any procedures done? @ -[No] Diagnosis/symptom? @ -Headache - Lower Abdominal Pain Acute, or Chronic, or Acute on Chronic? @ -Acute Uncomplicated (without systemic symptoms) or Complicated (systemic symptoms)? @ -Uncomplicated Side effects of treatment? @ -[No] Exacerbation, Progression, or Severe Exacerbation? @ -[No] Poses a threat to life or bodily function? How? (Chest pain, USA, [place], pneumonia, PE, COPD, DKA, ARF, appy, cholecystitis, CVA, Diverticulitis, Homicidal, Suicidal, threat to staff... and all critical care pts) @ -Low likelihood - Lab Data Result diagrams: 07/01/23 23:34 07/01/23 23:34 Lab Results 07/01/23 07/01/23 07/01/23 Range/Units 23:34 23:34 23:34 WBC 9.2 (3.8-10.6) k/uL RBC 4.18 (3.80-5.40) m/uL Hgb 11.4 (11.4-16.0) gm/dL Hct 35.5 (34.0-46.0) % MCV 84.9 (80.0-100.0) fL MCH 27.2 (25.0-35.0) pg MCHC 32.0 (31.0-37.0) g/dL RDW 15.4 (11.5-15.5) % Plt Count 268 (150-450) k/uL MPV 9.8 Neutrophils % 61 % Lymphocytes % 28 % Monocytes % 6 % Eosinophils % 2 % Basophils % 0 % Neutrophils # 5.6 (1.3-7.7) k/uL Lymphocytes # 2.6 (1.0-4.8) k/uL Monocytes # 0.6 (0-1.0) k/uL Eosinophils # 0.2 (0-0.7) k/uL Basophils # 0.0 (0-0.2) k/uL Sodium (137-145) mmol/L Potassium (3.5-5.1) mmol/L Chloride (98-107) mmol/L Carbon Dioxide (22-30) mmol/L Anion Gap mmol/L BUN (7-17) mg/dL Creatinine (0.52-1.04) mg/dL Est GFR (CKD-EPI)AfAm (>60 ml/min/1.73 sqM) Est GFR (CKD-EPI)NonAf (>60 ml/min/1.73 sqM) Glucose (74-99) mg/dL Calcium (8.4-10.2) mg/dL Total Bilirubin (0.2-1.3) mg/dL AST (14-36) U/L ALT (4-34) U/L Alkaline Phosphatase (38-126) U/L Total Protein (6.3-8.2) g/dL Albumin (3.5-5.0) g/dL Urine Color Yellow Urine Appearance Clear (Clear) Urine pH 5.5 (5.0-8.0) Ur Specific [place] 1.027 (1.001-1.035) Urine Protein Trace H (Negative) Urine Glucose (UA) Negative (Negative) Urine Ketones Negative (Negative) Urine Blood Negative (Negative) Urine Nitrite Negative (Negative) Urine Bilirubin Negative (Negative) Urine Urobilinogen <2.0 (<2.0) mg/dL Ur Leukocyte Esterase Negative (Negative) Urine HCG, Qual Not Detected (Not Detectd) 07/01/23 Range/Units 23:34 WBC (3.8-10.6) k/uL RBC (3.80-5.40) m/uL Hgb (11.4-16.0) gm/dL Hct (34.0-46.0) % MCV (80.0-100.0) fL MCH (25.0-35.0) pg MCHC (31.0-37.0) g/dL RDW (11.5-15.5) % Plt Count (150-450) k/uL MPV Neutrophils % % Lymphocytes % % Monocytes % % Eosinophils % % Basophils % % Neutrophils # (1.3-7.7) k/uL Lymphocytes # (1.0-4.8) k/uL Monocytes # (0-1.0) k/uL Eosinophils # (0-0.7) k/uL Basophils # (0-0.2) k/uL Sodium 137 (137-145) mmol/L Potassium 4.2 (3.5-5.1) mmol/L Chloride 104 (98-107) mmol/L Carbon Dioxide 21 L (22-30) mmol/L Anion Gap 12 mmol/L BUN 11 (7-17) mg/dL Creatinine 0.67 (0.52-1.04) mg/dL Est GFR (CKD-EPI)AfAm >90 (>60 ml/min/1.73 sqM) Est GFR (CKD-EPI)NonAf >90 (>60 ml/min/1.73 sqM) Glucose 98 (74-99) mg/dL Calcium 10.1 (8.4-10.2) mg/dL Total Bilirubin 0.6 (0.2-1.3) mg/dL AST 46 H (14-36) U/L ALT 39 H (4-34) U/L Alkaline Phosphatase 71 (38-126) U/L Total Protein 8.0 (6.3-8.2) g/dL Albumin 4.4 (3.5-5.0) g/dL Urine Color Urine Appearance (Clear) Urine pH (5.0-8.0) Ur Specific [place] (1.001-1.035) Urine Protein (Negative) Urine Glucose (UA) (Negative) Urine Ketones (Negative) Urine Blood (Negative) Urine Nitrite (Negative) Urine Bilirubin (Negative) Urine Urobilinogen (<2.0) mg/dL Ur Leukocyte Esterase (Negative) Urine HCG, Qual (Not Detectd) Disposition Clinical Impression: Abdominal pain, Headache Disposition: HOME SELF-CARE Condition: Good Instructions (If sedation given, give patient instructions): Abdominal Pain (ED), Acute Headache (ED), Migraine Headache (ED) Additional Instructions: Please monitor symptoms closely Please return to the nearest emergency department if symptoms worsen or persist Is patient prescribed a controlled substance at d/c from ED?: No Referrals: Hermelinda Castaneda MD [Primary Care Provider] - 1-2 days Time of Disposition: 03:40
--- NOTE | 2023-07-02 02:42 | US ---
EXAM: US Pelvis Transabdominal, Complete CLINICAL HISTORY: ITS.REASON US Reason: pelvic pain TECHNIQUE: Real-time complete transabdominal pelvic ultrasound with image documentation. COMPARISON: No relevant prior studies available. FINDINGS: Uterus/cervix: Unremarkable. Normal endometrial stripe thickness. No myometrial mass. Right ovary: Unremarkable. No mass. Normal blood flow. Left ovary: Unremarkable. No mass. Normal blood flow. Free fluid: No free fluid. Bladder: Unremarkable as visualized. Wall is normal thickness for degree of distention. IMPRESSION: Normal pelvic ultrasound.
--- NOTE | 2023-07-02 02:47 | CT ---
EXAM: CT Head Without Intravenous Contrast CLINICAL HISTORY: ITS.REASON CT Reason: headache TECHNIQUE: Axial computed tomography images of the head/brain without intravenous contrast. CTDI is 49.2 mGy and DLP is 1130.4 mGy-cm. This CT exam was performed using one or more of the following dose reduction techniques: automated exposure control, adjustment of the mA and/or kV according to patient size, and/or use of iterative reconstruction technique. COMPARISON: No relevant prior studies available. FINDINGS: Brain: Unremarkable. No hemorrhage. No significant white matter disease. No edema. Ventricles: Unremarkable. No ventriculomegaly. Bones/joints: Unremarkable. No acute fracture. Soft tissues: Unremarkable. Sinuses: Unremarkable as visualized. No acute sinusitis. Mastoid air cells: Unremarkable as visualized. No mastoid effusion. IMPRESSION: Normal head/brain CT.
[2023-07-02 03:22] VITALS: BP 108/64; PULSE 68; TEMP 97.8
== END 2023-07-02 03:18 | disposition home or self-care (01) ==
LOC: EC 22:27
DX: R10.31 Right lower quadrant pain (principal); R51.9 Headache, unspecified; E11.43 Type 2 diabetes mellitus with diabetic autonomic (poly)neuropathy; K31.84 Gastroparesis; F41.9 Anxiety disorder, unspecified; Z79.84 Long term (current) use of oral hypoglycemic drugs; Z79.899 Other long term (current) drug therapy; Z88.1 Allergy status to other antibiotic agents; Z90.49 Acquired absence of other specified parts of digestive tract
CPT/HCPCS: 36415; 70450; 76856; 80053; 81003; 81025; 85025; 93975; 96360; 99284

== ENCOUNTER 2023-12-18 15:19 | Emergency (ER) | payer BC, MEDICARE ==
--- NOTE | 2023-12-18 15:50 | ED ---
General Adult HPI - General Stated complaint: Left Calf Pain Time Seen by Provider: 12/18/23 15:21 Source: patient, RN notes reviewed Mode of arrival: ambulatory Limitations: no limitations - History of Present Illness Initial comments: 43-year-old female presents emergency department with chief complaint of left calf pain. Patient states concerned about possible DVT. Patient states she had a provoked DVT years ago denies being on any blood thinners denies chest pain denies shortness of breath. Patient states the pain is on the lateral portion of her leg denies any discoloration denies any paresthesias. - Related Data Home Medications Medication Instructions Recorded Confirmed Cholecalciferol [Vitamin D3 (25 25 mcg PO DAILY 03/21/23 03/21/23 Mcg = 1000 Iu)] FLUoxetine HCL [PROzac] 20 mg PO DAILY 03/21/23 03/21/23 Multivitamins, Thera [Multivitamin 1 tab PO DAILY 03/21/23 03/21/23 (formulary)] Semaglutide [Ozempic] 0.5 mg SQ FR 03/21/23 03/21/23 metFORMIN HCL 500 mg PO BID-W/MEALS 03/21/23 03/21/23 traZODone HCL [Desyrel] 50 mg PO HS 03/21/23 03/21/23 Allergies Allergy/AdvReac Type Severity Reaction Status Date / Time ciprofloxacin [From Cipro] Allergy Rash/Hives Verified 12/18/23 16:10 Review of Systems ROS Statement: Those systems with pertinent positive or pertinent negative responses have been documented in the HPI. ROS Other: All systems not noted in ROS Statement are negative. Past Medical History Past Medical History: Diabetes Mellitus, Fibromyalgia Additional Past Medical History / Comment(s): chronic fatigue syndrome, kidney stones, diverticulosis, gastroparesis, gestational diabetes, being worked up for clotting disorder History of Any Multi-Drug Resistant Organisms: None Reported Past Surgical History: Section, Cholecystectomy, Orthopedic Surgery, Tonsillectomy Additional Past Surgical History / Comment(s): kidney stone removal Past Anesthesia/Blood Transfusion Reactions: No Reported Reaction Past Psychological History: Anxiety Smoking Status: Never smoker Past Alcohol Use History: None Reported Past Drug Use History: None Reported - Past Family History Mother Family Medical History: No Reported History General Exam General appearance: alert, in no apparent distress Head exam: Present: atraumatic, normocephalic, normal inspection Respiratory exam: Present: normal lung sounds bilaterally. Absent: respiratory distress, wheezes, rales, rhonchi, stridor Cardiovascular Exam: Present: regular rate, normal rhythm, normal heart sounds. Absent: systolic murmur, diastolic murmur, rubs, gallop, clicks Extremities exam: Present: other (Left calf lateral portion mild tenderness no erythema, ecchymosis neurovascular intact) Course Vital Signs 12/18/23 15:58 Temperature 98.4 F Pulse Rate 80 Respiratory 16 Rate Blood Pressure 152/98 O2 Sat by Pulse 98 Oximetry Medical Decision Making - Medical Decision Making Was pt. sent in by a medical professional or institution (, ANDRE, CRYSTAL MOUNTER, urgent care, hospital, or usp...) When possible be specific @ -No Did you speak to anyone other than the patient for history (EMS, parent, family, police, friend...)? What history was obtained from this source @ -No Did you review nursing and triage notes (agree or disagree)? Why? @ -I reviewed and agree with nursing and triage notes Were old charts reviewed (outside hosp., previous admission, EMS record, old EKG, old radiological studies, urgent care reports/EKG's, usp records)? Report findings @ -No old charts were reviewed Differential Diagnosis (chest pain, altered mental status, abdominal pain women, abdominal pain men, vaginal bleeding, weakness, fever, dyspnea, syncope, headache, dizziness, GI bleed, back pain, seizure, CVA, palpatations, mental health, musculoskeletal)? @ -DVT, leg pain EKG interpreted by me (3pts min.). @ -None X-rays interpreted by me (1pt min.). @ -None done CT interpreted by me (1pt min.). @ -None done U/S interpreted by me (1pt. min.). @ -Ultrasound left venous Doppler negative for acute DVT What testing was considered but not performed or refused? (CT, X-rays, U/S, labs)? Why? @ -None What meds were considered but not given or refused? Why? @ -None Did you discuss the management of the patient with other professionals (professionals i.e. ANDRE Hu, CRYSTAL MOUNTER, lab, RT, psych nurse, social worker aide, cad design engineer, teacher, medical officer psychiatry, mattress spring encaser)? Give summary @ -No Was smoking cessation discussed for >3mins.? @ -No Was critical care preformed (if so, how long)? @ -No Were there social determinants of health that impacted care today? How? (Homelessness, low income, unemployed, alcoholism, drug addiction, transportation, low edu. Level, literacy, decrease access to med. care, nursing home, rehab)? @ -No Was there de-escalation of care discussed even if they declined (Discuss DNR or withdrawal of care, Hospice)? DNR status @ -No What co-morbidities impacted this encounter? (DM, HTN, Smoking, COPD, CAD, Cancer, CVA, ARF, Chemo, Hep., AIDS, mental health diagnosis, sleep apnea, morbid obesity)? @ -None Was patient admitted / discharged? Hospital course, mention meds given and route, prescriptions, significant lab abnormalities, going to OR and other pertinent info. @ -Discharge patient's ultrasound was negative for acute DVT patient has left leg pain she is neurovascular tact with no other cute findings. Undiagnosed new problem with uncertain prognosis? @ -No Drug Therapy requiring intensive monitoring for toxicity (Heparin, Nitro, Insulin, Cardizem)? @ -No Were any procedures done? @ -No Diagnosis/symptom? @ -Left leg pain Acute, or Chronic, or Acute on Chronic? @ -Acute Uncomplicated (without systemic symptoms) or Complicated (systemic symptoms)? @ -Uncomplicated Side effects of treatment? @ -No Exacerbation, Progression, or Severe Exacerbation? @ -No Poses a threat to life or bodily function? How? (Chest pain, USA, [place], pneumonia, PE, COPD, DKA, ARF, appy, cholecystitis, CVA, Diverticulitis, Homicidal, Suicidal, threat to staff... and all critical care pts) @ -No Disposition Clinical Impression: Left leg pain Disposition: HOME SELF-CARE Condition: Stable Instructions (If sedation given, give patient instructions): Leg Pain (ED) Additional Instructions: Please return to the Emergency Department if symptoms worsen or any other concerns. Is patient prescribed a controlled substance at d/c from ED?: No Referrals: Hermelinda Castaneda MD [Primary Care Provider] - 1-2 days Time of Disposition: 16:15
--- NOTE | 2023-12-18 16:09 | US ---
EXAMINATION TYPE: US venous doppler duplex LE LT DATE OF EXAM: 12/18/2023 3:53 PM COMPARISON: NONE CLINICAL INDICATION: Female, 43 years old with history of pain; Pain x 1 day. Hx of DVT left leg, PE. Patient does not take blood thinners. SIDE PERFORMED: Left TECHNIQUE: The lower extremity deep venous system is examined utilizing real time linear array sonog fabiana with graded compression, doppler sonography and color-flow sonography. VESSELS IMAGED: Common Femoral Vein Deep Femoral Vein Greater Saphenous Vein * Femoral Vein Popliteal Vein Small Saphenous Vein * Proximal Calf Veins (* superficial vessels) Left Leg: No evidence of DVT. Motorboat Mechanic Inboard/Outboard notes: Scanned left lateral calf at patient's area of pain, no abnormalities seen at this time. IMPRESSION: 1. No sonographic evidence for DVT within the left lower extremity imaged from the groin to the upper calf. 2. Additional targeted scanning along the lateral aspect of the calf at the area of patient's pain. N o discrete sonographic abnormality is seen here.
[2023-12-18 16:24] VITALS: BP 152/98; PULSE 80; RESP 16; TEMP 98.4
== END 2023-12-18 16:49 | disposition home or self-care (01) ==
LOC: EC 15:19
DX: M79.605 Pain in left leg (principal); E11.9 Type 2 diabetes mellitus without complications; F41.9 Anxiety disorder, unspecified; Z79.899 Other long term (current) drug therapy; Z79.84 Long term (current) use of oral hypoglycemic drugs; Z88.1 Allergy status to other antibiotic agents
CPT/HCPCS: 99283

== ENCOUNTER 2024-02-27 16:33 | Emergency (ER) | payer BC, MEDICARE ==
--- NOTE | 2024-02-27 17:12 | ED ---
General Adult HPI - General Chief complaint: Extremity Injury, Upper Stated complaint: Fall, L wrist and elbow injuries Time Seen by Provider: 02/27/24 16:45 Source: patient Mode of arrival: ambulatory Limitations: no limitations - History of Present Illness Initial comments: 43-year-old female presenting with chief complaint of left elbow and wrist pain. Patient fell off of the last step of her porch today. She states that she landed on her left hip, followed by her left arm. She is still able to ambulate, she is having hip soreness but no severe pain. Her pain is mainly concentrated over her elbow, there are some scratches present. She has a previous hairline fracture in her wrist and states that she is having pain over that area. She is stable to move her fingers without difficulty. States that she is having difficulty holding her phone. No numbness or tingling. - Related Data Home Medications Medication Instructions Recorded Confirmed Cholecalciferol [Vitamin D3 (25 25 mcg PO DAILY 03/21/23 03/21/23 Mcg = 1000 Iu)] FLUoxetine HCL [PROzac] 20 mg PO DAILY 03/21/23 03/21/23 Multivitamins, Thera [Multivitamin 1 tab PO DAILY 03/21/23 03/21/23 (formulary)] Semaglutide [Ozempic] 0.5 mg SQ FR 03/21/23 03/21/23 metFORMIN HCL 500 mg PO BID-W/MEALS 03/21/23 03/21/23 traZODone HCL [Desyrel] 50 mg PO HS 03/21/23 03/21/23 Allergies Allergy/AdvReac Type Severity Reaction Status Date / Time ciprofloxacin [From Cipro] Allergy Rash/Hives Verified 02/27/24 16:44 Review of Systems ROS Statement: Those systems with pertinent positive or pertinent negative responses have been documented in the HPI. ROS Other: All systems not noted in ROS Statement are negative. Past Medical History Past Medical History: Diabetes Mellitus, Fibromyalgia Additional Past Medical History / Comment(s): chronic fatigue syndrome, kidney stones, diverticulosis, gastroparesis, gestational diabetes, being worked up for clotting disorder History of Any Multi-Drug Resistant Organisms: None Reported Past Surgical History: Section, Cholecystectomy, Orthopedic Surgery, Tonsillectomy Additional Past Surgical History / Comment(s): kidney stone removal Past Anesthesia/Blood Transfusion Reactions: No Reported Reaction Past Psychological History: Anxiety Smoking Status: Never smoker Past Alcohol Use History: None Reported Past Drug Use History: Marijuana - Past Family History Mother Family Medical History: No Reported History General Exam Limitations: no limitations General appearance: alert, in no apparent distress Head exam: Present: atraumatic, normocephalic Eye exam: Present: normal appearance, EOMI Neck exam: Present: normal inspection. Absent: meningismus Respiratory exam: Absent: respiratory distress Left Elbow exam: Present: tenderness, swelling, abrasion. Absent: full ROM Hand Wrist exam: Present: normal inspection, full ROM, tenderness Neurological exam: Present: alert, oriented X3 Psychiatric exam: Present: normal affect, normal mood Skin exam: Present: warm, dry Course Vital Signs 02/27/24 16:42 Temperature 98.9 F Pulse Rate 107 H Respiratory 18 Rate Blood Pressure 132/83 O2 Sat by Pulse 98 Oximetry Medical Decision Making - Medical Decision Making 43-year-old female presenting with chief complaint of elbow and wrist pain. Patient had a fall today. X-rays are negative. Educated on supportive management. Provided with sling. Discharged home. Follow-up with PCP. Report back to ER with any new or worsening symptoms. Discussed return parameters and answered all questions. Patient conveyed verbal understanding and agreed to the plan. I discussed this case in detail with my attending Dr. Palencia Was pt. sent in by a medical professional or institution (, PA, LUBRICATING MACHINE TENDER, urgent care, hospital, or halfway...) When possible be specific @ -No Did you speak to anyone other than the patient for history (EMS, parent, family, police, friend...)? What history was obtained from this source @ -No Did you review nursing and triage notes (agree or disagree)? Why? @ -I reviewed and agree with nursing and triage notes Were old charts reviewed (outside hosp., previous admission, EMS record, old EKG, old radiological studies, urgent care reports/EKG's, halfway records)? Report findings @ -No old charts were reviewed Differential Diagnosis (chest pain, altered mental status, abdominal pain women, abdominal pain men, vaginal bleeding, weakness, fever, dyspnea, syncope, headache, dizziness, GI bleed, back pain, seizure, CVA, palpatations, mental health, musculoskeletal)? @ -Differential Musculoskeletal Muscular strain, contusion, ligament sprain, fracture, arthritis, septic arthritis, bursitis, cellulitis, muscle spasm, nerve compression, DVT, arterial occlusion, herpes zoster, electrolyte abnormality, tumor.... This is not meant to be in all inclusive list EKG interpreted by me (3pts min.). @ -As above X-rays interpreted by me (1pt min.). @ -X-rays of the left wrist and elbow show no no acute osseous pathology CT interpreted by me (1pt min.). @ -None done U/S interpreted by me (1pt. min.). @ -None done What testing was considered but not performed or refused? (CT, X-rays, U/S, labs)? Why? @ -None What meds were considered but not given or refused? Why? @ -None Did you discuss the management of the patient with other professionals (professionals i.e. , PA, LUBRICATING MACHINE TENDER, lab, RT, psych nurse, social work associate, certified executive chef, teacher, gifts officer, nurse case management)? Give summary @ -No Was smoking cessation discussed for >3mins.? @ -No Was critical care preformed (if so, how long)? @ -No Were there social determinants of health that impacted care today? How? (Homelessness, low income, unemployed, alcoholism, drug addiction, transportation, low edu. Level, literacy, decrease access to med. care, senior care, rehab)? @ -No Was there de-escalation of care discussed even if they declined (Discuss DNR or withdrawal of care, Hospice)? DNR status @ -No What co-morbidities impacted this encounter? (DM, HTN, Smoking, COPD, CAD, Cancer, CVA, ARF, Chemo, Hep., AIDS, mental health diagnosis, sleep apnea, morbid obesity)? @ -None Was patient admitted / discharged? Hospital course, mention meds given and route, prescriptions, significant lab abnormalities, going to OR and other pertinent info. @ -Discharged see above for details Undiagnosed new problem with uncertain prognosis? @ -No Drug Therapy requiring intensive monitoring for toxicity (Heparin, Nitro, Insulin, Cardizem)? @ -No Were any procedures done? @ -No Diagnosis/symptom? @ -Elbow sprain Acute, or Chronic, or Acute on Chronic? @ -Acute Uncomplicated (without systemic symptoms) or Complicated (systemic symptoms)? @ -Uncomplicated Side effects of treatment? @ -No Exacerbation, Progression, or Severe Exacerbation? @ -No Poses a threat to life or bodily function? How? (Chest pain, [place], [place], pneumonia, PE, COPD, DKA, ARF, appy, cholecystitis, CVA, Diverticulitis, Homicidal, Suicidal, threat to staff... and all critical care pts) @ -No Disposition Clinical Impression: Elbow sprain Disposition: HOME SELF-CARE Condition: Good Instructions (If sedation given, give patient instructions): Elbow Sprain (ED) Additional Instructions: Follow-up with PCP. Report back to ER with any new or worsening symptoms. Take Motrin and Tylenol as needed for pain control. Rest ice and elevate the arm. Is patient prescribed a controlled substance at d/c from ED?: No Referrals: Hermelinda Castaneda MD [Primary Care Provider] - 1-2 days Time of Disposition: 18:17
[2024-02-27 17:18] VITALS: BP 132/83; PULSE 107; RESP 18; TEMP 98.9
--- NOTE | 2024-02-27 18:08 | XR ---
EXAMINATION TYPE: XR elbow complete LT DATE OF EXAM: 02/27/2024 5:27 PM CLINICAL INDICATION:Female, 43 years old with history of fall; COMPARISON: None TECHNIQUE: XR elbow complete LT; elbow was examined in AP, lateral, and oblique projections. FINDINGS: No evidence of any acute osseous pathology, joint dislocation, or soft tissue swelling is n oted. No evidence of joint effusion is present. IMPRESSION: No evidence of acute fracture.
--- NOTE | 2024-02-27 18:09 | XR ---
EXAMINATION TYPE: XR wrist complete LT DATE OF EXAM: 02/27/2024 5:27 PM CLINICAL INDICATION:Female, 43 years old with history of fall; [facility] COMPARISON: None TECHNIQUE: XR wrist complete LT; examined in the Frontal, navicular, lateral, and oblique. FINDINGS: No acute osseous pathology, joint dislocation, or joint effusion. No evidence of any soft tissue swelling is seen. Remote injury to the ulnar styloid process. IMPRESSION: No acute osseous pathology.
[2024-02-27] MEDS: KETOROLAC 15 MG/ML 1 ML VIAL IM STA (18:22)
[2024-02-27] MEDS: ACET/COD 300 MG/30 MG STARTER PACK 6 TAB BTL PO STA (18:23)
== END 2024-02-27 18:31 | disposition home or self-care (01) ==
LOC: EC 16:33
DX: S53.402A Unspecified sprain of left elbow, initial encounter (principal); Z88.8 Allergy status to other drugs, medicaments and biological substances; W10.9XXA Fall (on) (from) unspecified stairs and steps, initial encounter
CPT/HCPCS: 73080; 73110; 99283; 96372; J1885

== ENCOUNTER 2024-04-19 15:15 | Emergency (ER) | payer BC, MEDICARE ==
[2024-04-19 15:34] VITALS: RESP 16
--- NOTE | 2024-04-19 16:19 | ED ---
Animal Bite HPI - General Chief Complaint: Animal Bite Stated Complaint: dog bite, R hand Time Seen by Provider: 04/19/24 16:18 Source: patient, RN notes reviewed Mode of arrival: ambulatory Limitations: no limitations - History of Present Illness Initial Comments: 43-year-old female presented to ER with a chief complaint of a dog bite. Patient states last night her 2 dogs got into a fight and she attempted to break it up. She states her 1 dog bit her right hand. Dog's vaccinations are up to date. Patient's tetanus is unknown. She denies any paresthesias or other injuries. - Related Data Home Medications Medication Instructions Recorded Confirmed Cholecalciferol [Vitamin D3 (25 25 mcg PO DAILY 03/21/23 03/21/23 Mcg = 1000 Iu)] FLUoxetine HCL [PROzac] 20 mg PO DAILY 03/21/23 03/21/23 Multivitamins, Thera [Multivitamin 1 tab PO DAILY 03/21/23 03/21/23 (formulary)] Semaglutide [Ozempic] 0.5 mg SQ FR 03/21/23 03/21/23 metFORMIN HCL 500 mg PO BID-W/MEALS 03/21/23 03/21/23 traZODone HCL [Desyrel] 50 mg PO HS 03/21/23 03/21/23 Previous Rx's Medication Instructions Recorded Amoxic-Pot Clav 875-125Mg 1 tab PO Q12HR #20 tab 04/19/24 [Augmentin 875-125] Allergies Allergy/AdvReac Type Severity Reaction Status Date / Time ciprofloxacin [From Cipro] Allergy Rash/Hives Verified 04/19/24 15:33 Review of Systems ROS Statement: Those systems with pertinent positive or pertinent negative responses have been documented in the HPI. ROS Other: All systems not noted in ROS Statement are negative. Past Medical History Past Medical History: Diabetes Mellitus, Fibromyalgia Additional Past Medical History / Comment(s): chronic fatigue syndrome, kidney stones, diverticulosis, gastroparesis, gestational diabetes, being worked up for clotting disorder History of Any Multi-Drug Resistant Organisms: None Reported Past Surgical History: Section, Cholecystectomy, Orthopedic Surgery, Tonsillectomy Additional Past Surgical History / Comment(s): kidney stone removal Past Anesthesia/Blood Transfusion Reactions: No Reported Reaction Past Psychological History: Anxiety Smoking Status: Never smoker Past Alcohol Use History: None Reported Past Drug Use History: Marijuana - Past Family History Mother Family Medical History: No Reported History General Exam Limitations: no limitations General appearance: alert, in no apparent distress Respiratory exam: Present: normal lung sounds bilaterally. Absent: respiratory distress, wheezes, rales, rhonchi, stridor Cardiovascular Exam: Present: regular rate, normal rhythm, normal heart sounds. Absent: systolic murmur, diastolic murmur, rubs, gallop, clicks Extremities exam: Present: full ROM, tenderness (Right third fourth and fifth metacarpals. Surrounding edema. Puncture wound to dorsum of hand. Mild bruising sensation intact. 2+ right radial pulse.), normal capillary refill. Absent: pedal edema, joint swelling, calf tenderness Skin exam: Present: warm, dry, intact, normal color. Absent: rash Course Vital Signs 04/19/24 04/19/24 15:29 17:04 Temperature 98.1 F 97.9 F Pulse Rate 81 76 Respiratory 16 16 Rate Blood Pressure 124/85 118/78 O2 Sat by Pulse 98 99 Oximetry Medical Decision Making - Medical Decision Making Was pt. sent in by a medical professional or institution (, PA, OUTBOUND SALES CONSULTANT, urgent care, hospital, or senior living...) When possible be specific @ -No Did you speak to anyone other than the patient for history (EMS, parent, family, police, friend...)? What history was obtained from this source @ -No Did you review nursing and triage notes (agree or disagree)? Why? @ -I reviewed and agree with nursing and triage notes Were old charts reviewed (outside hosp., previous admission, EMS record, old EKG, old radiological studies, urgent care reports/EKG's, senior living records)? Report findings @ -No old charts were reviewed Differential Diagnosis (chest pain, altered mental status, abdominal pain women, abdominal pain men, vaginal bleeding, weakness, fever, dyspnea, syncope, headache, dizziness, GI bleed, back pain, seizure, CVA, palpatations, mental health, musculoskeletal)? @ -Cellulitis, dog bite, fracture, dislocation.... this list is not meant to be all-inclusive EKG interpreted by me (3pts min.). @ -None X-rays interpreted by me (1pt min.). @ -Right hand x-ray interpreted by me negative for acute osseous process. CT interpreted by me (1pt min.). @ -None done U/S interpreted by me (1pt. min.). @ -None done What testing was considered but not performed or refused? (CT, X-rays, U/S, labs)? Why? @ -None What meds were considered but not given or refused? Why? @ -None Did you discuss the management of the patient with other professionals (professionals i.e. DrGreg, PA, OUTBOUND SALES CONSULTANT, lab, RT, psych nurse, social service liaison, mortgage operations manager, teacher, traffic maintenance officer, case planner)? Give summary @ -No Was smoking cessation discussed for >3mins.? @ -No Was critical care preformed (if so, how long)? @ -No Were there social determinants of health that impacted care today? How? (Homelessness, low income, unemployed, alcoholism, drug addiction, transportation, low edu. Level, literacy, decrease access to med. care, residential, rehab)? @ -No Was there de-escalation of care discussed even if they declined (Discuss DNR or withdrawal of care, Hospice)? DNR status @ -No What co-morbidities impacted this encounter? (DM, HTN, Smoking, COPD, CAD, Cancer, CVA, ARF, Chemo, Hep., AIDS, mental health diagnosis, sleep apnea, morbid obesity)? @ -None Was patient admitted / discharged? Hospital course, mention meds given and route, prescriptions, significant lab abnormalities, going to OR and other pertinent info. @ -Discharge. 43-year-old female presented to ER with a chief complaint of a dog bite. History and physical exam completed. Vitals stable. Exam remarkable for edema and tenderness to right third, fourth and fifth metacarpals. Patient has full active range of motion. There is a puncture wound overlying fourth metacarpal with surrounding ecchymosis and edema. Right upper extremity neurovascular intact. X-rays obtained negative for acute osseous process. Tetanus updated. Upon reevaluation, patient resting comfortably in exam room in no signs of acute distress. Results discussed with patient, all questions answered. Augmentin prescribed, first dose in the ER. Patient refused rabies vaccinations. Wound cleaned with iodine and sterile water. Extremely strict return parameters discussed. Patient discharged in stable condition with follow-up to PCP. Patient verbally expressed understanding and agreed with care plan. Case discussed with ED attending, Dr. Adames. Undiagnosed new problem with uncertain prognosis? @ -No Drug Therapy requiring intensive monitoring for toxicity (Heparin, Nitro, Insulin, Cardizem)? @ -No Were any procedures done? @ -No Diagnosis/symptom? @ -Dog bite Acute, or Chronic, or Acute on Chronic? @ -Acute Uncomplicated (without systemic symptoms) or Complicated (systemic symptoms)? @ -Uncomplicated Side effects of treatment? @ -No Exacerbation, Progression, or Severe Exacerbation? @ -No Poses a threat to life or bodily function? How? (Chest pain, [place], [place], pneumonia, PE, COPD, DKA, ARF, appy, cholecystitis, CVA, Diverticulitis, Homicidal, Suicidal, threat to staff... and all critical care pts) @ -Low likelihood - Radiology Data Radiology results: report reviewed, image reviewed Disposition Clinical Impression: Dog bite Disposition: HOME SELF-CARE Condition: Stable Instructions (If sedation given, give patient instructions): Animal Bite (ED) Additional Instructions: Complete full course of Augmentin. You may take [id number] Tylenol and Motrin for pain control. Have a low threshold to return to the ER for increasing redness, swelling, pain or purulent drainage from wound. Follow-up with PCP. Return to the ER for new or worsening concerns. Prescriptions: Amoxic-Pot Clav 875-125Mg [Augmentin 875-125] 1 tab PO Q12HR #20 tab Is patient prescribed a controlled substance at d/c from ED?: No Referrals: Hermelinda Castaneda MD [Primary Care Provider] - 1-2 days Time of Disposition: 16:50
--- NOTE | 2024-04-19 16:34 | XR ---
EXAMINATION TYPE: XR hand complete RT DATE OF EXAM: 04/19/2024 4:25 PM CLINICAL INDICATION:Female, 43 years old with history of dog bite to R hand/swelling/pain; [facility] COMPARISON: None TECHNIQUE: XR hand complete RT Frontal, lateral and oblique views were obtained. FINDINGS: Normal alignment of the visualized joints. No acute osseous pathology is identified. No e vidence of soft tissue swelling. No significant degeneration no radiopaque foreign bodies. IMPRESSION: No acute osseous pathology.
[2024-04-19] MEDS: AMOXIC-POT CLAV 875-125MG 1 EACH TAB PO STA (16:51)
[2024-04-19] MEDS: DIPH,PERTUS(ACELL)TETVAC-LF 0.5 ML VIAL IM ONE (16:51)
[2024-04-19 17:07] VITALS: BP 118/78; PULSE 76; TEMP 97.9
== END 2024-04-19 17:06 | disposition home or self-care (01) ==
LOC: EC 15:15
DX: S61.451A Open bite of right hand, initial encounter (principal); Z88.1 Allergy status to other antibiotic agents; Z23 Encounter for immunization; W54.0XXA Bitten by dog, initial encounter
CPT/HCPCS: 90471; 90715; 99283

== ENCOUNTER 2024-06-20 17:12 | Emergency (ER) | payer BC, MEDICARE ==
[2024-06-20 17:17] LABS: Glucose,Whole Blood 138 mg/dL (70-110)
[2024-06-20 17:18] VITALS: TEMP 98
--- NOTE | 2024-06-20 17:38 | ED ---
Weakness HPI - General Chief complaint: Weakness Stated complaint: weakness/chills Time Seen by Provider: 06/20/24 17:28 Source: patient, RN notes reviewed, old records reviewed Mode of arrival: ambulatory Limitations: no limitations - History of Present Illness Initial comments: This is a 44-year-old female to the ER presents today for evaluation regards to dental pain body aches pains muscle aches and pains. Patient has recent history of dental procedure and presents today for evaluation of bodyaches pains concern for dental infection or abscess MD Complaint: generalized weakness -: days(s) Location: generalized Severity: moderate Severity scale (1-10): 5 Quality: tingling, aching Consistency: constant Improves with: none Worsens with: none Context: recent illness, history of similar Associated Symptoms: denies other symptoms - Related Data Home Medications Medication Instructions Recorded Confirmed FLUoxetine HCL [PROzac] 20 mg PO DAILY 03/21/23 06/20/24 [id number] 2 tab PO Q4HR PRN 06/20/24 06/20/24 [Excedrin] Ferrous Sulfate [Feosol] 325 mg PO DAILY 06/20/24 06/20/24 Rosuvastatin Calcium [Crestor] 5 mg PO HS 06/20/24 06/20/24 Previous Rx's Medication Instructions Recorded Amoxic-Pot Clav 875-125Mg 1 tab PO Q12HR #20 tablet 06/20/24 [Augmentin 875-125] Allergies Allergy/AdvReac Type Severity Reaction Status Date / Time ciprofloxacin [From Cipro] Allergy Rash/Hives, Verified 06/20/24 17:43 itching Review of Systems ROS Statement: Those systems with pertinent positive or pertinent negative responses have been documented in the HPI. ROS Other: All systems not noted in ROS Statement are negative. Past Medical History Past Medical History: Diabetes Mellitus, Fibromyalgia Additional Past Medical History / Comment(s): chronic fatigue syndrome, kidney stones, diverticulosis, gastroparesis, gestational diabetes, being worked up for clotting disorder History of Any Multi-Drug Resistant Organisms: None Reported Past Surgical History: Section, Cholecystectomy, Orthopedic Surgery, Tonsillectomy Additional Past Surgical History / Comment(s): kidney stone removal Past Anesthesia/Blood Transfusion Reactions: No Reported Reaction Past Psychological History: Anxiety Smoking Status: Never smoker Past Alcohol Use History: None Reported Past Drug Use History: Marijuana - Past Family History Mother Family Medical History: No Reported History General Exam Limitations: no limitations General appearance: alert, in no apparent distress Head exam: Present: atraumatic, normocephalic, normal inspection Eye exam: Present: normal appearance, PERRL, EOMI. Absent: scleral icterus, conjunctival injection, periorbital swelling ENT exam: Present: normal exam, mucous membranes moist Neck exam: Present: normal inspection. Absent: tenderness, meningismus, lymphadenopathy Respiratory exam: Present: normal lung sounds bilaterally. Absent: respiratory distress, wheezes, rales, rhonchi, stridor Cardiovascular Exam: Present: regular rate, normal rhythm, normal heart sounds. Absent: systolic murmur, diastolic murmur, rubs, gallop, clicks GI/Abdominal exam: Present: soft, normal bowel sounds. Absent: distended, tenderness, guarding, rebound, rigid Extremities exam: Present: normal inspection, full ROM, normal capillary refill. Absent: tenderness, pedal edema, joint swelling, calf tenderness Back exam: Present: normal inspection Neurological exam: Present: alert, oriented X3, CN II-XII intact Psychiatric exam: Present: normal affect, normal mood Skin exam: Present: warm, dry, intact, normal color. Absent: rash Course Vital Signs 06/20/24 06/20/24 06/20/24 17:14 18:17 19:45 Temperature 98 F Pulse Rate 92 96 98 Respiratory 20 18 18 Rate Blood Pressure 149/96 140/78 142/83 O2 Sat by Pulse 97 95 98 Oximetry 06/20/24 22:09 Temperature Pulse Rate 89 Respiratory 18 Rate Blood Pressure 134/84 O2 Sat by Pulse 97 Oximetry - Reevaluation(s) Reevaluation #1: 06/20/24 21:27 Medical records reviewed Reevaluation #2: 06/20/24 21:27 Patient symptoms unchanged Reevaluation #3: 06/20/24 21:27 Patient informed of results and questions answered Reevaluation #4: Was pt. sent in by a medical professional or institution (, PA, SCHOOL PHOTOGRAPHS DETAILER, urgent care, hospital, or penitentiary...) When possible be specific @ -no Did you speak to anyone other than the patient for history (EMS, parent, family, police, friend...)? What history was obtained from this source @ -no Did you review nursing and triage notes (agree or disagree)? Why? @ -agree Are old charts reviewed (outside hosp., previous admission, EMS record, old EKG, old radiological studies, urgent care reports/EKG's, penitentiary records)? Report findings @ -yes Differential Diagnosis (chest pain, altered mental status, abdominal pain women, abdominal pain men, vaginal bleeding, weakness, fever, dyspnea, syncope, headache, dizziness, GI bleed, back pain, seizure, CVA, palpatations, mental health, musculoskeletal)? @ -prior EKG interpreted by me (3pts min.). @ -yes X-rays interpreted by me (1pt min.). @ -Yes negative for acute disease CT interpreted by me (1pt min.). @ -no U/S interpreted by me (1pt. min.). @ -no What testing was considered but not performed or refused? (CT, X-rays, U/S, labs)? Why? @ -none What meds were considered but not given or refused? Why? @ -none Did you discuss the management of the patient with other professionals (professionals i.e. , PA, SCHOOL PHOTOGRAPHS DETAILER, lab, RT, psych nurse, social worker psychiatric, wood getter, teacher, commissioned defence force officer, case mgr)? Give summary @ -no Was smoking cessation discussed for >3mins.? @ -no Was critical care preformed (if so, how long)? @ -no Were there social determinants of health that impacted care today? How? (Homelessness, low income, unemployed, alcoholism, drug addiction, price sportation, low edu. Level, literacy, decrease access to med. care, half-way, rehab)? @ -none Was there de-escalation of care discussed even if they declined (Discuss DNR or withdrawal of care, Hospice)? DNR status @ -no What co-morbidities impacted this encounter? (DM, HTN, Smoking, COPD, CAD, Cancer, CVA, ARF, Chemo, Hep., AIDS, mental health diagnosis, sleep apnea, morbid obesity)? @ -none Was patient admitted / discharged? Hospital course, mention meds given and route, prescriptions, significant lab abnormalities, going to OR and other pertinent info. @ - 44 female to the ER for evaluation patient [facility] for evaluation regards to dental pain dental pain and dental caries. Patient had recent dental procedure currently with weakness and bodyaches and pains. Patient feels improved and can be discharged home Discharge Undiagnosed new problem with uncertain prognosis? @ -no Drug Therapy requiring intensive monitoring for toxicity (Heparin, Nitro, Insulin, Cardizem)? @ -no Were any procedures done? @ -no Diagnosis/symptom? @ -Weakness Acute, or Chronic, or Acute on Chronic? @ -Acute Uncomplicated (without systemic symptoms) or Complicated (systemic symptoms)? @ -Complicated Side effects of treatment? @ -no Exacerbation, Progression, or Severe Exacerbation? @ -exacerbation Poses a threat to life or bodily function? How? (Chest pain, [place], [place], pneumonia, PE, COPD, DKA, ARF, appy, cholecystitis, CVA, Diverticulitis, Homicidal, Suicidal, threat to staff... and all critical care pts) @ -yes 07/06/24 22:07 Reevaluation #5: Differential Weakness: Hypoglycemia, shock, sepsis, hyponatremia, anemia, infection, PA, ETOH, adverse medicine reaction, overdose, stroke, this is not meant to be an all-inclusive list. EKG Findings - EKG Comments: EKG Findings:: EKG is sinus 91 SD 133 QRS 94 QTc 425 - EKG Results: EKG: interpreted by ERMD Medical Decision Making - Medical Decision Making 44 female to the ER for evaluation patient [facility] for evaluation regards to dental pain dental pain and dental caries. Patient had recent dental procedure currently with weakness and bodyaches and pains. Patient feels improved and can be discharged home - Lab Data Result diagrams: 06/20/24 17:53 06/20/24 17:53 Lab Results 06/20/24 06/20/24 06/20/24 Range/Units 17:15 17:53 17:53 WBC 7.6 (3.8-10.6) k/uL RBC 4.52 (3.80-5.40) m/uL Hgb 10.6 L (11.4-16.0) gm/dL Hct 34.8 (34.0-46.0) % MCV 77.0 L (80.0-100.0) fL MCH 23.5 L (25.0-35.0) pg MCHC 30.5 L (31.0-37.0) g/dL RDW 17.8 H (11.5-15.5) % Plt Count 347 (150-450) k/uL MPV 9.8 Neutrophils % 52 % Lymphocytes % 38 % Monocytes % 6 % Eosinophils % 2 % Basophils % 1 % Neutrophils # 3.9 (1.3-7.7) k/uL Lymphocytes # 2.9 (1.0-4.8) k/uL Monocytes # 0.4 (0-1.0) k/uL Eosinophils # 0.2 (0-0.7) k/uL Basophils # 0.1 (0-0.2) k/uL Hypochromasia Marked Anisocytosis Slight Microcytosis Slight PT 10.7 (10.0-12.5) sec INR 1.0 (<1.2) APTT 24.1 (22.0-30.0) sec Sodium (137-145) mmol/L Potassium (3.5-5.1) mmol/L Chloride (98-107) mmol/L Carbon Dioxide (22-30) mmol/L Anion Gap mmol/L BUN (7-17) mg/dL Creatinine (0.52-1.04) mg/dL Est GFR (CKD-EPI)AfAm (>60 ml/min/1.73 sqM) Est GFR (CKD-EPI)NonAf (>60 ml/min/1.73 sqM) Glucose (74-99) mg/dL POC Glucose (mg/dL) 138 H (70-110) mg/dL POC Glu Cruise Agent ID Estrada Porras Plasma Lactic Acid Ti (0.7-2.0) mmol/L Calcium (8.4-10.2) mg/dL Phosphorus (2.5-4.5) mg/dL Magnesium (1.6-2.3) mg/dL Total Bilirubin (0.2-1.3) mg/dL AST (14-36) U/L ALT (4-34) U/L Alkaline Phosphatase (38-126) U/L Troponin I (0.000-0.034) ng/mL Total Protein (6.3-8.2) g/dL Albumin (3.5-5.0) g/dL Influenza Type A (PCR) (Not Detectd) Influenza Type B (PCR) (Not Detectd) RSV (PCR) (Not Detectd) SARS-CoV-2 (PCR) (Not Detectd) 06/20/24 06/20/24 06/20/24 Range/Units 17:53 17:53 17:53 WBC (3.8-10.6) k/uL RBC (3.80-5.40) m/uL Hgb (11.4-16.0) gm/dL Hct (34.0-46.0) % MCV (80.0-100.0) fL MCH (25.0-35.0) pg MCHC (31.0-37.0) g/dL RDW (11.5-15.5) % Plt Count (150-450) k/uL MPV Neutrophils % % Lymphocytes % % Monocytes % % Eosinophils % % Basophils % % Neutrophils # (1.3-7.7) k/uL Lymphocytes # (1.0-4.8) k/uL Monocytes # (0-1.0) k/uL Eosinophils # (0-0.7) k/uL Basophils # (0-0.2) k/uL Hypochromasia Anisocytosis Microcytosis PT (10.0-12.5) sec INR (<1.2) APTT (22.0-30.0) sec Sodium 140 (137-145) mmol/L Potassium 4.6 (3.5-5.1) mmol/L Chloride 103 (98-107) mmol/L Carbon Dioxide 23 (22-30) mmol/L Anion Gap 14 mmol/L BUN 8 (7-17) mg/dL Creatinine 0.75 (0.52-1.04) mg/dL Est GFR (CKD-EPI)AfAm >90 (>60 ml/min/1.73 sqM) Est GFR (CKD-EPI)NonAf >90 (>60 ml/min/1.73 sqM) Glucose 127 H (74-99) mg/dL POC Glucose (mg/dL) (70-110) mg/dL POC Glu Cruise Agent ID Plasma Lactic Acid Ti 1.5 (0.7-2.0) mmol/L Calcium 10.3 H (8.4-10.2) mg/dL Phosphorus 2.5 (2.5-4.5) mg/dL Magnesium 2.0 (1.6-2.3) mg/dL Total Bilirubin 0.8 (0.2-1.3) mg/dL AST 47 H (14-36) U/L ALT 35 H (4-34) U/L Alkaline Phosphatase 69 (38-126) U/L Troponin I <0.012 (0.000-0.034) ng/mL Total Protein 8.3 H (6.3-8.2) g/dL Albumin 4.7 (3.5-5.0) g/dL Influenza Type A (PCR) (Not Detectd) Influenza Type B (PCR) (Not Detectd) RSV (PCR) (Not Detectd) SARS-CoV-2 (PCR) (Not Detectd) 06/20/24 Range/Units 18:57 WBC (3.8-10.6) k/uL RBC (3.80-5.40) m/uL Hgb (11.4-16.0) gm/dL Hct (34.0-46.0) % MCV (80.0-100.0) fL MCH (25.0-35.0) pg MCHC (31.0-37.0) g/dL RDW (11.5-15.5) % Plt Count (150-450) k/uL MPV Neutrophils % % Lymphocytes % % Monocytes % % Eosinophils % % Basophils % % Neutrophils # (1.3-7.7) k/uL Lymphocytes # (1.0-4.8) k/uL Monocytes # (0-1.0) k/uL Eosinophils # (0-0.7) k/uL Basophils # (0-0.2) k/uL Hypochromasia Anisocytosis Microcytosis PT (10.0-12.5) sec INR (<1.2) APTT (22.0-30.0) sec Sodium (137-145) mmol/L Potassium (3.5-5.1) mmol/L Chloride (98-107) mmol/L Carbon Dioxide (22-30) mmol/L Anion Gap mmol/L BUN (7-17) mg/dL Creatinine (0.52-1.04) mg/dL Est GFR (CKD-EPI)AfAm (>60 ml/min/1.73 sqM) Est GFR (CKD-EPI)NonAf (>60 ml/min/1.73 sqM) Glucose (74-99) mg/dL POC Glucose (mg/dL) (70-110) mg/dL POC Glu Cruise Agent ID Plasma Lactic Acid Ti (0.7-2.0) mmol/L Calcium (8.4-10.2) mg/dL Phosphorus (2.5-4.5) mg/dL Magnesium (1.6-2.3) mg/dL Total Bilirubin (0.2-1.3) mg/dL AST (14-36) U/L ALT (4-34) U/L Alkaline Phosphatase (38-126) U/L Troponin I (0.000-0.034) ng/mL Total Protein (6.3-8.2) g/dL Albumin (3.5-5.0) g/dL Influenza Type A (PCR) Not Detected (Not Detectd) Influenza Type B (PCR) Not Detected (Not Detectd) RSV (PCR) Not Detected (Not Detectd) SARS-CoV-2 (PCR) Not Detected (Not Detectd) - EKG Data -: EKG Interpreted by Me - Radiology Data Radiology results: report reviewed (Chest x-ray is negative for acute disease), image reviewed Disposition Clinical Impression: Nausea and vomiting, Dehydration, Dental abscess Disposition: HOME SELF-CARE Condition: Good Instructions (If sedation given, give patient instructions): Dental Abscess (ED) Prescriptions: Amoxic-Pot Clav 875-125Mg [Augmentin 875-125] 1 tab PO Q12HR #20 tablet Is patient prescribed a controlled substance at d/c from ED?: No Referrals: Hermelinda Castaneda MD [Primary Care Provider] - 1-2 days Time of Disposition: 21:30
[2024-06-20] MEDS: SODIUM CHLORIDE 0.9% 500 ML 500 ML IV STA (18:03)
[2024-06-20] MEDS: SODIUM CHLORIDE 0.9% 1,000 ML IV STA ×2 (18:03→18:42)
[2024-06-20] MEDS: ONDANSETRON 4 MG/2 ML VIAL IVP STA (18:03)
[2024-06-20] MEDS: KETOROLAC 15 MG/ML 1 ML VIAL IVP STA (18:04)
[2024-06-20] MEDS: MORPHINE SULFATE 4 MG/ML SYRINGE IV STA (18:04)
[2024-06-20] MEDS: METOCLOPRAMIDE 5 MG/ML 2 ML VIAL IVP STA (18:13)
[2024-06-20] MEDS: ACETAMINOPHEN IV (For NPO) 1,000 MG in EMPTY BAG 1 BAG IVPB STA (18:15)
[2024-06-20 18:17] LABS: Anisocytosis Slight; Basophils # (A) 0.1 k/uL (0-0.2); Basophils % (A) 1 %; Eosinophils # (A) 0.2 k/uL (0-0.7); Eosinophils % (A) 2 %; HCT 34.8 % (34.0-46.0); HGB 10.6 gm/dL (11.4-16.0); Hypochromasia Marked; Lymphocytes # (A) 2.9 k/uL (1.0-4.8); Lymphocytes % (A) 38 %; MCH 23.5 pg (25.0-35.0); MCHC 30.5 g/dL (31.0-37.0); Mean Platelet Volume 9.8; Microcytosis Slight; Monocytes # (A) 0.4 k/uL (0-1.0); Monocytes % (A) 6 %; Neutrophils # (A) 3.9 k/uL (1.3-7.7); Neutrophils % (A) 52 %; Platelet Count 347 k/uL (150-450); RBC 4.52 m/uL (3.80-5.40); RDW 17.8 % (11.5-15.5); WBC 7.6 k/uL (3.8-10.6)
--- NOTE | 2024-06-20 18:17 | XR ---
EXAMINATION TYPE: XR chest 2V DATE OF EXAM: 06/20/2024 COMPARISON: 03/21/2023 INDICATION: Weakness TECHNIQUE: Frontal and lateral views of the chest are obtained. FINDINGS: The heart size is normal. The pulmonary vasculature is normal. The lungs are clear. IMPRESSION: 1. No acute pulmonary process.
[2024-06-20 18:26] LABS: Partial Thromboplastin Time 24.1 sec (22.0-30.0); Prothrombin Time 10.7 sec (10.0-12.5)
[2024-06-20 18:28] VITALS: RESP 18
[2024-06-20 18:38] LABS: ALT 35 U/L (4-34); AST 47 U/L (14-36); African American GFR (CKD) >90 (>60 ml/min/1.73 sqM); Albumin 4.7 g/dL (3.5-5.0); Anion Gap 14 mmol/L; Blood Urea Nitrogen 8 mg/dL (7-17); Calcium 10.3 mg/dL (8.4-10.2); Carbon Dioxide 23 mmol/L (22-30); Chloride 103 mmol/L (98-107); Glucose 127 mg/dL (74-99); Non-African American GFR(CKD) >90 (>60 ml/min/1.73 sqM); Phosphorus 2.5 mg/dL (2.5-4.5); Sodium 140 mmol/L (137-145); Total Bilirubin 0.8 mg/dL (0.2-1.3); Total Protein 8.3 g/dL (6.3-8.2)
[2024-06-20 18:41] LABS: Alkaline Phosphatase 69 U/L (38-126); Potassium 4.6 mmol/L (3.5-5.1)
[2024-06-20] MEDS: AMPICILLIN-SULBACTAM 3 GM in SODIUM CHLORIDE 0.9% 100 ML IVPB STA (19:44)
[2024-06-20] MEDS ORDERED: AMOXIC-POT CLAV 875MG STARTER PACK 2 TAB BTL PO STA (21:26)
[2024-06-20 22:10] VITALS: BP 134/84; PULSE 89
== END 2024-06-20 22:13 | disposition home or self-care (01) ==
LOC: EC 17:12
DX: E86.0 Dehydration (principal); K04.7 Periapical abscess without sinus; R11.2 Nausea with vomiting, unspecified; Z88.1 Allergy status to other antibiotic agents
CPT/HCPCS: 36415; 93005; 80053; 83605; 83735; 84100; 84484; 85025; 85610; 85730; 87040; 87636; 71046; 99285; 96365; 96375 ×4; 96361 ×2; J2270; J2765; J0295; J0131; J1885

== ENCOUNTER 2025-03-28 14:53 | Emergency (ER) | payer BC, MEDICARE ==
--- NOTE | 2025-03-28 15:13 | ED ---
Animal Bite HPI - General Chief Complaint: Animal Bite Stated Complaint: L foot dog bite Time Seen by Provider: 03/28/25 15:01 Source: patient, RN notes reviewed Mode of arrival: wheelchair Limitations: no limitations - History of Present Illness Initial Comments: 44-year-old female presents emergency department after a dog bite. Patient states that she was breaking up a fight between her family dogs, between a senior dog and her youngest dog, when she noticed that her daughter was getting bit when she went to break up the fight. She states that she was bit in the left top of the foot and the left hand proximally 2 hours prior to arrival. She also states that she felt a popping station of the right knee when she mildly fell to the ground. Last tetanus vaccination was within the last 5 years. She states that her dogs are up-to-date on vaccines. - Related Data Home Medications Medication Instructions Recorded Confirmed FLUoxetine HCL [PROzac] 20 mg PO DAILY 03/21/23 06/20/24 [id number]-[id number] 2 tab PO Q4HR PRN 06/20/24 06/20/24 [Excedrin] Ferrous Sulfate [Feosol] 325 mg PO DAILY 06/20/24 06/20/24 Rosuvastatin Calcium [Crestor] 5 mg PO HS 06/20/24 06/20/24 Previous Rx's Medication Instructions Recorded Amoxic-Pot Clav 875-125Mg 1 tab PO Q12HR #20 tablet 06/20/24 [Augmentin 875-125] Amoxic-Pot Clav 875-125Mg 1 tab PO Q12HR #20 tab 03/28/25 [Augmentin 875-125] Allergies Allergy/AdvReac Type Severity Reaction Status Date / Time ciprofloxacin [From Cipro] Allergy Rash/Hives, Verified 03/28/25 14:58 itching Review of Systems ROS Statement: Those systems with pertinent positive or pertinent negative responses have been documented in the HPI. ROS Other: All systems not noted in ROS Statement are negative. Past Medical History Past Medical History: Diabetes Mellitus, Fibromyalgia Additional Past Medical History / Comment(s): chronic fatigue syndrome, kidney stones, diverticulosis, gastroparesis, gestational diabetes, being worked up for clotting disorder History of Any Multi-Drug Resistant Organisms: None Reported Past Surgical History: Section, Cholecystectomy, Orthopedic Surgery, Tonsillectomy Additional Past Surgical History / Comment(s): kidney stone removal Past Anesthesia/Blood Transfusion Reactions: No Reported Reaction Past Psychological History: Anxiety Smoking Status: Never smoker Past Alcohol Use History: None Reported Past Drug Use History: Marijuana - Past Family History Mother Family Medical History: No Reported History General Exam Limitations: no limitations General appearance: alert, in no apparent distress ENT exam: Present: normal exam, mucous membranes moist Neck exam: Present: normal inspection. Absent: tenderness, meningismus, lymph adenopathy Respiratory exam: Present: normal lung sounds bilaterally. Absent: respiratory distress, wheezes, rales, rhonchi, stridor Cardiovascular Exam: Present: regular rate, normal rhythm, normal heart sounds. Absent: systolic murmur, diastolic murmur, rubs, gallop, clicks GI/Abdominal exam: Present: soft, normal bowel sounds. Absent: distended, tenderness, guarding, rebound, rigid Left Hand Wrist exam: Present: tenderness, swelling, ecchymosis. Absent: deformity, crepitus Neuro motor exam: Present: wrist extension intact, thumb opposition intact Vascular: Present: normal capillary refill, radial pulse (2+). Absent: vascular compromise Left Foot/Toe exam: Present: tenderness, swelling, ecchymosis. Absent: deformity, crepitus, dislocation, erythema Right Knee exam: Present: tenderness, abrasion. Absent: swelling, deformity Neurological exam: Present: alert, oriented X3, CN II-XII intact Course Vital Signs 03/28/25 03/28/25 03/28/25 14:56 16:11 16:19 Temperature 98.3 F 98.5 F 98.5 F Pulse Rate 100 80 80 Respiratory 17 20 20 Rate Blood Pressure 166/112 165/89 165/89 O2 Sat by Pulse 98 96 96 Oximetry Medical Decision Making - Medical Decision Making Was pt. sent in by a medical professional or institution (, PA, GAS OPERATIONS SUPERINTENDENT, urgent care, hospital, or long-term...) When possible be specific @ -No Did you speak to anyone other than the patient for history (EMS, parent, family, police, friend...)? What history was obtained from this source @ -No Did you review nursing and triage notes (agree or disagree)? Why? @ -I reviewed and agree with nursing and triage notes Were old charts reviewed (outside hosp., previous admission, EMS record, old EKG, old radiological studies, urgent care reports/EKG's, long-term records)? Report findings @ -No old charts were reviewed Differential Diagnosis (chest pain, altered mental status, abdominal pain women, abdominal pain men, vaginal bleeding, weakness, fever, dyspnea, syncope, headache, dizziness, GI bleed, back pain, seizure, CVA, palpatations, mental health, musculoskeletal)? @ -animal bite, tendon injury,puncture wound, this list is not all inclusive EKG interpreted by me (3pts min.). @ -none X-rays interpreted by me (1pt min.). @ XR of the left foot, left hand, and right knee no acute proceess CT interpreted by me (1pt min.). @ -None done U/S interpreted by me (1pt. min.). @ -None done What testing was considered but not performed or refused? (CT, X-rays, U/S, labs)? Why? @ -None What meds were considered but not given or refused? Why? @ -None Did you discuss the management of the patient with other professionals (professionals i.e. , PA, GAS OPERATIONS SUPERINTENDENT, lab, RT, psych nurse, social services coordinator, ethanol operations manager, teacher, escrow officer, oil field caser)? Give summary @ -No Was smoking cessation discussed for >3mins.? @ -No Was critical care preformed (if so, how long)? @ -No Were there social determinants of health that impacted care today? How? (Homelessness, low income, unemployed, alcoholism, drug addiction, transportation, low edu. Level, literacy, decrease access to med. care, longterm, rehab)? @ -No Was there de-escalation of care discussed even if they declined (Discuss DNR or withdrawal of care, Hospice)? DNR status @ -No What co-morbidities impacted this encounter? (DM, HTN, Smoking, COPD, CAD, Cancer, CVA, ARF, Chemo, Hep., AIDS, mental health diagnosis, sleep apnea, morbid obesity)? @ -None Was patient admitted / discharged? Hospital course, mention meds given and route, prescriptions, significant lab abnormalities, going to OR and other pertinent info. @ -Discharge. 44-year-old female presenting after a dog bite. There is noted puncture wound over the left ventral of the foot. Patient is also complaining of pain to the right knee with full range of motion and of the left hand. Patient is away with Tylenol and morphine for pain relief. Puncture wounds were cleansed with sterile water and Betadine solution. Wound was did not require suture closure or repair. Patient provided with outpatient prescription for Augmentin and as discussed on return parameters with concern for infection. Case discussed with my attending Dr. Foy Undiagnosed new problem with uncertain prognosis? @ -No Drug Therapy requiring intensive monitoring for toxicity (Heparin, Nitro, Insulin, Cardizem)? @ -No Were any procedures done? @ -No Diagnosis/symptom? @ -animal bite/puncture wound Acute, or Chronic, or Acute on Chronic? @ -acute Uncomplicated (without systemic symptoms) or Complicated (systemic symptoms)? @ -uncomplicated Side effects of treatment? @ -No Exacerbation, Progression, or Severe Exacerbation? @ -No Poses a threat to life or bodily function? How? (Chest pain, [place], [place], pneumonia, PE, COPD, DKA, ARF, appy, cholecystitis, CVA, Diverticulitis, Homicidal, Suicidal, threat to staff... and all critical care pts) @ -No Disposition Clinical Impression: Bite by animal, Dog bite Disposition: HOME SELF-CARE Condition: Stable Instructions (If sedation given, give patient instructions): Animal Bite (ED) Additional Instructions: Please return to the Emergency Department if symptoms worsen or any other concerns. Prescriptions: Amoxic-Pot Clav 875-125Mg [Augmentin 875-125] 1 tab PO Q12HR #20 tab Is patient prescribed a controlled substance at d/c from ED?: No Referrals: Hermelinda Castaneda MD [Primary Care Provider] - 1-2 days Babatunde Fuentes MD [STAFF PHYSICIAN] - 1-2 days Time of Disposition: 16:07
[2025-03-28] MEDS: HYDROcodone/APAP 5-325MG 1 EACH TAB PO STA (15:17)
--- NOTE | 2025-03-28 15:59 | XR ---
EXAMINATION TYPE: XR hand complete LT DATE OF EXAM: 03/28/2025 3:44 PM COMPARISON: 02/27/2024. CLINICAL INDICATION: Female, 44 years old with history of dog bite; PHH, pain TECHNIQUE: XR hand complete LT 3 views were obtained. FINDINGS: No radiopaque foreign bodies. Normal alignment of the visualized joints. No acute osseous pathology is identified. No evidence of soft tissue swelling. No significant degeneration. IMPRESSION: 1. No acute osseous pathology. 2. No radiopaque foreign bodies. [facility], , 03/28/2025 3:57 PM
--- NOTE | 2025-03-28 16:05 | XR ---
EXAMINATION TYPE: XR knee complete RT DATE OF EXAM: 03/28/2025 3:45 PM COMPARISON: None CLINICAL INDICATION: Female, 44 years old with history of fall, pain; PHH, pain TECHNIQUE: XR knee complete RT 3 views submitted. FINDINGS: No evidence of any acute osseous pathology or soft tissue swelling. No radiopaque foreign bodies. IMPRESSION: 1. No acute osseous pathology. 2. No radiopaque foreign bodies. [facility], , 03/28/2025 4:03 PM
--- NOTE | 2025-03-28 16:06 | XR ---
EXAMINATION TYPE: XR foot complete LT DATE OF EXAM: 03/28/2025 3:45 PM COMPARISON: 03/28/2025. CLINICAL INDICATION: Female, 44 years old with history of dog bite;, pain TECHNIQUE: XR foot complete LT examined in the AP, oblique, and lateral projections. FINDINGS: No evidence of any acute osseous pathology. Multifocal degeneration changes throughout the joints of the foot with osteophyte formation and joint space narrowing. No radiopaque foreign bodies. IMPRESSION: 1. No evidence of acute fracture. 2. No radiopaque foreign bodies. 3. Minimal degeneration changes throughout the joints of the foot. [facility], , 03/28/2025 4:04 PM
[2025-03-28] MEDS: MORPHINE SULFATE 4 MG/ML SYRINGE IM STA (16:10)
[2025-03-28 16:12] VITALS: BP 165/89; PULSE 80; RESP 20; TEMP 98.5
== END 2025-03-28 16:20 | disposition home or self-care (01) ==
LOC: EC 14:53
DX: S91.352A Open bite, left foot, initial encounter (principal); Z88.1 Allergy status to other antibiotic agents; W54.0XXA Bitten by dog, initial encounter
CPT/HCPCS: 73130; 73562; 73630; 99283; 96372; J2270